=== PATIENT | female | born 1955 | race Caucasian/White ===

== ENCOUNTER → 2018-01-19 15:51 | Outpatient (REF) | payer BC, SELFPAY ==
[2018-01-19 19:45] LABS: Cholesterol 177 mg/dL (50-200); HDL Cholesterol 46 mg/dL (40-60); LDL CHOLESTEROL 113 mg/dL (<100); Triglyceride 79 mg/dL (30-150)
[2018-01-21 10:35] LABS: HIV-1/2 Ag & Ab Screen Negative (NEGAT)
[2018-01-21 10:38] LABS: Hepatitis C Ab w Rflx HCV PCR Negative (NEGAT)
== END ==
LOC: LBN 15:51
PROVIDERS: PCP Internal Medicine; Visit Provider Internal Medicine
DX: Z13.220 Encounter for screening for lipoid disorders (principal); Z11.59 Encounter for screening for other viral diseases; Z11.4 Encounter for screening for human immunodeficiency virus [HIV]
CPT/HCPCS: 80061; 83721; 86803; 87389

== ENCOUNTER 2018-10-06 00:34 | Outpatient (CLI) | payer BC, SELFPAY ==
--- NOTE | 2018-10-06 08:22 | DI.MAMMO_ITS ---
SYMPTOM/DIAGNOSIS: SCREENING, Z12.31 MAMMOGRAMS: Mammograms were interpreted according to the usual protocol including computer analysis with CAD system, tomosynthesis and C view imaging. The breasts are of moderate density with fairly symmetrical distribution of fibroglandular tissue. No dominant mass or clumped microcalcification is identified in either breast. The current examination is compared with previous examinations including 09/2017 and there has been no gross interval change in appearance in comparison with the previous studies. CONCLUSION: No specific evidence of malignancy at this time. Routine screening examinations are suggested at yearly intervals in this age group according to the ACS/ACR guidelines. Category 1. Breast density, Category B. MQSA ASSESSMENT OF FINDINGS: Negative. Category 1. Patient will receive a letter notifying them of these results. BI-RADS category B. There are scattered areas of fibroglandular density.
== END 2018-10-06 00:54 ==
PROVIDERS: PCP Internal Medicine; Visit Provider Nurse Practitioner Family
DX: Z12.31 Encounter for screening mammogram for malignant neoplasm of breast (principal)
CPT/HCPCS: 77063; 77067

== ENCOUNTER 2019-08-21 10:11 | Outpatient (REF) | payer BC, SELFPAY ==
--- NOTE | 2019-08-21 08:30 | PAPFT_PTH ---
PATIENT: Marilyn Alvarez LOC: [facility] U#:[id number] AGE/SX: 64/F ROOM: RE08/21/[address]: EVERETT Martin : 1955 BED: DIS: 08/21/2019 SPEC #: [id number] RECD: 08/21/19 13:03 STATUS: BJORNThanh REQ #: [id number] EBONIE: 08/21/19 08:[address]: Stefanie Vallejo DEPT: [facility] Cytology RECD BY: Trista Hinton ENTERED: 08/21/19 13:04 SP TYPE: PAPFT OTHR DR: Jadyn Abad MD Tissues: 1 - CX/ENDOCX FOR PAP SMEARS Procedures: PAP THIN PREP/UVM Screening HPV DNA PROBE Comments: [id number]
== END 2019-08-21 10:31 ==
LOC: LBN 10:11
PROVIDERS: PCP Internal Medicine; Visit Provider Nurse Practitioner Family
DX: Z12.4 Encounter for screening for malignant neoplasm of cervix (principal); Z11.51 Encounter for screening for human papillomavirus (HPV)
CPT/HCPCS: 88142; 87624

== ENCOUNTER 2019-08-25 16:13 | Outpatient (REF) | payer BC, SELFPAY ==
--- NOTE | 2019-08-25 15:00 | SKI_PTH ---
PATIENT: Marilyn Alvarez LOC: [facility] U#:[id number] AGE/SX: 64/F ROOM: RE08/25/[address]: Sidney White MD : 1955 BED: DIS: 08/25/2019 SPEC #: [id number] RECD: 08/25/19 17:39 STATUS: HEAVENLY REQ #: [id number] EBONIE: 08/25/19 15:[address]: Sidney White DEPT: Surgical Specimen RECD BY: Trista Hniton ENTERED: 08/25/19 17:39 SP TYPE: ENID BALDWIN DR: Jadyn Abad MD Tissues: 1 - SKIN CYST/TAG/DEBRIDEMENT Procedures: GROSS AND MICRO LEVEL 3 Comments: [id number]
== END 2019-08-25 16:33 ==
LOC: LBN 16:13
PROVIDERS: PCP Internal Medicine; Visit Provider Obstetrics & Gynecology
DX: D28.0 Benign neoplasm of vulva (principal); N90.89 Other specified noninflammatory disorders of vulva and perineum
CPT/HCPCS: 88304

== ENCOUNTER 2019-11-27 02:28 | Outpatient (CLI) | payer BC, SELFPAY ==
--- NOTE | 2019-11-27 07:30 | DI.MAMMO_ITS ---
EXAM: MG MAMMO SCREENING CLINICAL HISTORY: screening TECHNIQUE: Bilateral full field digital CC and MLO mammographic images were obtained with 3D tomosyn thesis and utilizing computer aided detection (CAD). COMPARISON: Available for comparison. FINDINGS: Masses/Architectural Distortion: None seen. Microcalcifications: No suspicious pleomorphic-type are seen. Skin Thickening/Nipple Retraction: None. IMPRESSION: 1. No significant interval change with no specific features of malignancy noted. 2. Unless there is more urgent need, screening mammography is recommended, as per [place] [employer] guidelines. BI-RADS Category 1 - Negative Breast Density - Category B - Scattered areas of fibroglandular density A negative radiographic report should not delay biopsy if a dominant or clinically suspicious mass is present. Up to ten percent of cancers are not identified on mammography. A negative report may reinforce clinical impression. Adenosis and dense breasts may obscure an underlying neoplasm. False positive reports average 6 to 10%. Patient will receive a letter notifying them of these results.
== END 2019-11-27 02:48 ==
PROVIDERS: PCP Internal Medicine; Visit Provider Nurse Practitioner Family
DX: Z12.31 Encounter for screening mammogram for malignant neoplasm of breast (principal)
CPT/HCPCS: 77063; 77067

== ENCOUNTER 2020-11-01 03:39 | Outpatient (CLI) | payer BC, MEDICAID, SELFPAY ==
[2020-11-01 07:31] LABS: HGB 14.6 g/dL (11.2-15.7); MCHC 32.4 % (32.0-36.0); MCV 89.3 fL (80-95); MPV 9.7 fL (8.0-11.0); Platelet Count 323 10^3/uL (130-400); RBC 5.04 10^6/uL (3.93-5.22); RDW 12.9 % (11.7-14.6); RDW-SD 42.5 fL; WBC 6.38 10^3/uL (4.4-10.8)
[2020-11-01 07:43] LABS: Hemoglobin A1C 5.6 % (<5.7)
[2020-11-01 08:37] LABS: ALT 32 U/L (14-59); AST 18 U/L (15-37); Albumin 3.8 g/dL (3.4-5.0); Alkaline Phosphatase 89 U/L (46-116); Anion Gap 7.1 mmol/L (3-11); BUN 14 mg/dL (7-18); Bilirubin, Total 0.5 mg/dL (0.2-1.0); CO2 29.9 mmol/L (21.0-32.0); Calculated LDL 106 mg/dL (<100); Chloride 104 mmol/L (98-107); Cholesterol 170 mg/dL (<200); Glucose 109 mg/dL (74-106); HDL Cholesterol 49 mg/dL (40-60); Potassium 4.5 mmol/L (3.5-5.1); Sodium 141 mmol/L (136-145); Total Protein 7.3 g/dL (6.4-8.2); Triglyceride 79 mg/dL (<150)
== END 2020-11-01 03:40 | disposition home or self-care (01) ==
LOC: LBO 03:40
PROVIDERS: PCP Nurse Practitioner; Visit Provider Nurse Practitioner
DX: E11.9 Type 2 diabetes mellitus without complications (principal); E66.9 Obesity, unspecified; Z13.220 Encounter for screening for lipoid disorders
CPT/HCPCS: 36415; 80053; 80061; 85027; 83036

== ENCOUNTER 2020-11-27 01:37 | Outpatient (CLI) | payer BC, SELFPAY ==
--- NOTE | 2020-11-27 07:15 | DI.MAMMO_ITS ---
Exam(s) MAMMO SCREENING EXAM: MAMMO SCREENING CLINICAL HISTORY: screening, Z12.39 TECHNIQUE: Bilateral full field digital CC and MLO mammographic images were obtained with 3D tomosyn thesis and utilizing computer aided detection (CAD). COMPARISON: Available for comparison. FINDINGS: Masses/Architectural Distortion: None seen. Stable well-circumscribed nodules in both breasts. Microcalcifications: No suspicious pleomorphic-type are seen. Skin Thickening/Nipple Retraction: None. IMPRESSION: 1. No significant interval change with no specific features of malignancy noted. 2. Unless there is more urgent need, screening mammography is recommended, as per [place] [employer] guidelines. BI-RADS Category 1 - Negative Breast Density - Category B - Scattered areas of fibroglandular density Breast density category C or D implies that the patient has dense breast tissue. Dense breast tissue is very common and is not abnormal but dense breast tissue can make it harder to find cancer on a ma mmogram. Also, dense breast tissue may increase their breast cancer risk. This information about the result of the mammogram report was provided to the patient to raise their awareness. Use this report when you speak with the patient about their risks for breast cancer, which includes their family hist ory. At that time, you may recommend for more screening tests (Ultrasound or MRI) as they might be us eful based on their risk. A negative radiographic report should not delay biopsy if a dominant or clinically suspicious mass is present. Up to ten percent of cancers are not identified on mammography. A negative report may reinforce clinical impression. Adenosis and dense breasts may obscure an underlying neoplasm. False positive reports average 6 to 10%. Patient will receive a letter notifying them of these results.
== END 2020-11-27 01:57 ==
PROVIDERS: PCP Nurse Practitioner; Visit Provider Nurse Practitioner Family
DX: Z12.31 Encounter for screening mammogram for malignant neoplasm of breast (principal)
CPT/HCPCS: 77063; 77067

== ENCOUNTER 2021-03-12 00:29 | Outpatient (CLI) | payer BC, MEDICAID, SELFPAY ==
[2021-03-12 11:31] LABS: Source Nasal/Nares
[2021-03-12 15:23] LABS: COVID-19 PCR Negative (Negative)
== END 2021-03-12 00:30 | disposition home or self-care (01) ==
LOC: LBO 00:29
PROVIDERS: PCP Nurse Practitioner; Visit Provider Surgery
DX: Z20.822 Contact with and (suspected) exposure to COVID-19 (principal); Z01.818 Encounter for other preprocedural examination
CPT/HCPCS: 87635

== ENCOUNTER 2021-03-14 08:02 | Day surgery (SDC) | payer BC, MEDICAID, SELFPAY ==
--- NOTE | 2021-03-13 22:33 | PDOC.DSDIS_ITS ---
Discharge Plan Disposition Patient Disposition: HOME Condition: Good Discharge Details Reason For Visit: colon scope Attending Provider: Adriana Villareal Primary Care Provider: Callie Lugo Home Meds and New Rx's Prescriptions: Continued naproxen 500 mg tablet 500 mg PO BID PRN (Reason: pain) Qty: 30 RF: 0 cholecalciferol (vitamin D3) 400 units PO DAILY RF: 0 calcium carbonate 600 mg PO DAILY RF: 0 multivitamin [Daily Multi-Vitamin] 1 EACH tablet 1 ea PO DAILY RF: 0 aspirin [Aspirin Low Dose] 81 MG tablet,delayed release (DR/EC) 81 mg PO DAILY RF: 0 Ocuvite with Lutein 1 EACH tablet 1 ea PO DAILY RF: 0 Fish Oil 300 MG capsule 300 mg PO DAILY RF: 0 GLUCOS-CHOND 500 COMPLEX CP 1 EACH capsule 1 ea PO DAILY RF: 0 [facility] martinez wart 1 tab PO DAILY RF: 0 Niya-C with Bioflavonoids 1 EACH tablet 1 ea PO DAILY RF: 0 Discontinued bisacodyl [Dulcolax (bisacodyl)] 5 mg tablet,delayed release (DR/EC) 5 mg PO ONCE Qty: 4 RF: 0 polyethylene glycol 3350 17 gram/dose powder 238 g PO ONCE Qty: 238 RF: 0 Discharge Instructions Additional Instructions: DSU Colonoscopy Post- Op Instructions Instructions for Everyone who is given Anesthesia: For your safety, please do the following for the next twenty-four (24) hours: *Do Not operate a motor vehicle (car, truck, motorcycle, etc.) *Do Not drink alcoholic beverages or use any recreational drugs for the first 24 hours or while taking pain medications. The medications in your body may have a reaction that can be dangerous. *Do Not make any important decisions or sign any important papers. Findings:severe diverticula Follow up: Repeat scope in 10 yrs time 1. No lifting over 20 pounds or strenuous activity for the first 24 hours after your procedure. After 24 hours there are no restrictions on your activity but you may feel fatigued for a few days. 2. After you arrive home you may have a light meal and return to your normal diet as you can tolerate it without feeling sick to your stomach. 3. You may have a bloated, gaseous feeling in your belly (abdomen) after a colonoscopy. Passing gas and belching will help. Walking or lying down on your left side with your knees flexed may relieve the discomfort. Call the office at [phone] (Office) or [phone] (Hospital) right away if you notice any of the following: a.Vomiting of blood or ?coffee ground stools?. b.Rectal bleeding 1Tbsp, blood clots or continuous bleeding. c.Severe belly (abdominal) pain. d.A hard distended belly (abdomen) and an inability to pass gas. 4. Please don?t expect to have a normal BM (bowel movement) for 2-3 days after your procedure. 5. If there are questions regarding the findings of your procedure, please contact your doctor 6. If you are unable to contact your doctor with a problem, contact the hospital at [phone]. 7. Continue all your regular medications unless directed otherwise. I understand the above instructions and have no questions. Signature of Patient or Adult Escort Name of Responsible Adult Escort Signature of Nurse Date/Time Activity:: see above Diet:: see above Discharge Orders Discharge Orders: Discharge Order (Routine); Ordered 03/13/21 Ordered By: Adriana Villareal DS: Diagnosis Discharge Diagnosis (1) Adenomatous colon polyp: Status: Acute (2) Diverticula of colon: Status: Acute
--- NOTE | 2021-03-13 22:33 | W.COLOREPORT ---
Colonoscopy Report Date of procedure: 03/14/21 Pre-op diagnosis general: A. polyps Post-op diagnosis procedure note: other (diverticulitis ) Surgeon: Adriana Villareal Anesthesia Type: General:No Airway Estimated blood loss (mL): 0 Pathology: none sent Complications: None Disposition: same day Indications: After informed consent was obtained the patient was taken to the procedure room and placed in a left decubitous position. Monitors were applied and a time out was done. The patients name, date of , procedure, allergies to medications and metal in their body was reviewed. The patient was then sedated. Once sedated and comfortable a rectal exam was done. External exam was normal. Internal exam revealed a normal sphincter tone and no palpable masses. lg external hemorrhoids The scope was then introduced and retrofelexed. no internal hemorrhoids were identified. The scope was then advanced to the cecum w/out difficulty. The TI and appendiceal orifice were identified. The prep was poor-she still had a lot of formed stool within the colon. This did obscure visualization.. The scope was then slowly retracted over 9 minutes back into the rectum. There are no polyps identified. She does have severe diverticula with a significant amount of inspissated stool in the diverticula, making visualization poor. I did not visualize any polyps today. The scope was removed and the patient was woken up and taken back to Same day surgery in stable condition. The patient tolerated the procedure well and there were no immediate complications. Follow up: The patient should follow up in 10 years unless they develop changes in bowel habits or other new gastrointestinal complaints. Prep: Miralax/Dulcolax Retraction Time: 9
[2021-03-14 08:14] VITALS: BP 133/62; PULSE 59; RESP 16; TEMP 36.4; O2SAT 100
[2021-03-14] MEDS: Lactated Ringers 1,000 ML 80 ML IV (08:38)
--- NOTE | 2021-03-14 08:44 | W.ANESPRE ---
General Info Date of Service Date Performed: 03/14/21 Height: 4 ft 11 in Weight: 78.2 kg Body Mass Index (BMI): 34.8 Surgical Procedure: Operation Date: 03/14/21 09:05 Proposed Procedures Side Surgeon bradly Villareal, DO Meds Allergies and Home Medications Allergies Allergy/AdvReac Type Severity Reaction Status Date / Time No Known Allergies Allergy Verified 03/14/21 08:25 Home Medication Medication Instructions Recorded Glucos-Chond 500 Complex Cp 1 ea PO DAILY 08/14/13 [facility] Wart 1 tab PO DAILY 08/14/13 aspirin [Low Dose Aspirin Ec] 81 mg PO DAILY tab-cap 08/14/13 multivitamin [Daily Multiple 1 ea PO DAILY 08/14/13 Vitamin] omega-3 fatty acids [Fish Oil] 300 mg PO DAILY 08/14/13 vit A,C and [id number] 1 ea PO DAILY 08/14/13 [Ocuvite Tablet] ascorbate calcium-bioflavonoid 1 ea PO DAILY tab 10/06/17 [Niya-C 500 Mg Tablet] naproxen 500 mg tablet 500 mg PO BID PRN #30 tab 08/26/18 calcium carbonate 600 mg PO DAILY 10/17/20 cholecalciferol (vitamin D3) 400 units PO DAILY 10/17/20 bisacodyl 5 mg tablet,delayed 5 mg PO ONCE #4 tab 02/27/21 release polyethylene glycol 3350 17 238 g PO ONCE #238 g 02/27/21 gram/dose oral powder Current Visit Medications: Current Medications Generic Name Dose Route Start Last Admin Trade Name Freq PRN Reason Stop Dose Admin Hyoscyamine Sulfate 0.125 mg 03/13/21 22:31 Hyoscyamine 0.125 Mg Sl/Oral/Chew SL DIRECTED PRN Ringer's Solution 1,000 mls @ 80 mls/hr 03/14/21 06:00 03/14/21 08:38 IV 04/12/21 23:59 80 mls/hr INFUSION RICARDO Administration IV Miscellaneous Supplies 1 each 03/14/21 06:00 Iv Access IV 04/12/21 23:59 DIRECTED RICARDO Sodium Chloride 0 ml 03/14/21 06:00 Normal Saline Flush 10 Ml Syr IV 04/12/21 23:59 PRN PRN Sodium Chloride 0 ml 03/14/21 06:00 Normal Saline 10 Ml Vial IJ 04/12/21 23:59 DIRECTED PRN Sterile Water 0 ml 03/14/21 06:00 Water,Injection,Sterile 10 Ml Vial IJ 04/12/21 23:59 DIRECTED PRN PFSH Active Problems Active Problems: Problem Status Onset Code Adenomatous colon polyp D12.6 Blood pressure check Z01.30 Obesity E66.9 Screening for cholesterol level Z13.220 Vulvar skin tag N90.89 Arthritis of knee, left 01/08/15 M17.12 Benign neoplasm of colon 06/12/08 D12.6 Cerebral palsy 12/27/07 G80.9 Medical History Medical History Arthritis of knee, left (01/08/15) Benign neoplasm of colon (06/12/08) Cerebral palsy (12/27/07) R sided w/ ankle deformity History of depression History of pre-eclampsia Surgical History Surgical History section Ligation of fallopian tube 1977 Tobacco Smoking/Tobacco Use Status: Former Tobacco Use Alcohol Alcohol Intake: current Alcohol intake frequency: holidays/special occasions only Substance Use Substance use: Never Substance use type: does not use Prental History History 2 Para Hx # Term Pregnancies Multiple births Hx # Pregnancies Ectopic pregnancies AB induced Hx Number of Living Children AB spontaneous Vital Signs and Lab Results Vital Signs Most Recent Vital Signs in EMR: Most Recent Vital Signs Temp Pulse Resp BP Pulse Ox 36.4 C L 59 L 16 133/62 100 03/14/21 08:14 03/14/21 08:14 03/14/21 08:14 03/14/21 08:14 03/14/21 08:14 Lab Results Blood Type / Crossmatch: No Data to Display Complete Blood Count: No Data to Display Complete Metabolic Panel: No Data to Display Liver Function Panel: No Data to Display Coagulation Panel: No Data to Display Cardiac Panel: No Data to Display Arterial Blood Gas: No Data to Display Venous Blood Gas: No Data to Display Pancreas Panel: No Data to Display Thyroid Panel: No Data to Display Infectious Disease: Coronavirus (COVID-19)(PCR) Negative (Negative) 03/12/21 09:01 03/12/21 Coronavirus 2019 Source Nasal/Nares 03/12/21 09:01 03/12/21 Blood Cultures: No Data to Display Toxicology Panel: No Data to Display Anesthesia Assessment and Plan Anesthesia History Personal History: No History of Anesthesia Complications Family History: No Family History of Anesthesia Complications Exercise Tolerance Exercise Tolerance: Metabolic Equivalents>4 Pertinent Negatives Pertinent Negatives: No Symptoms of GERD, No Major Cardiovascular Symptoms or Complaints, No Major Pulmonary Symptoms or Complaints and No History of CVA/TIA Cardiac & Pulmonary Exam Cardiac Exam: Normal S1/S2 Heart Sounds Pulmonary Exam: Clear Bilateral Breath Sounds Airway Exam Known Difficult Airway: No Mallampati Class: 2 Mouth Opening: Normal (> 3cm) Thyromental Distance: Greater than 3 cm Neck Range of Motion: Full ROM Neck Circumference: Thick Teeth Condition: Normal Dentition ASA Classification ASA Score: ASA 2 Emergency Case?: No NPO Status NPO Status: NPO Clears >2 hours, Solids >8 hours Anesthesia Plan Resuscitation Status: Full Code Anesthesia Technique: General Anesthesia Airway Planned: Natural Airway Monitors Used: Standard Monitors
[2021-03-14 08:47] VITALS: BMI 34.8
[2021-03-14 08:53] VITALS: BP 101/64; PULSE 64; RESP 16; TEMP 36.4; O2SAT 97
--- NOTE | 2021-03-14 09:44 | W.ANESPOSTOP ---
Postoperative Evaluation Date, Time and Location Date Performed: 03/14/21 Time Performed: 09:44 Patient Location: Day Surgery Unit Vital Signs Most Recent Imported Vital Signs: Most Recent Vital Signs Temp Pulse Resp BP Pulse Ox 36.4 C L 64 16 101/64 97 03/14/21 08:53 03/14/21 08:53 03/14/21 08:53 03/14/21 08:53 03/14/21 08:53 Most Recent Manually Entered Vital Signs: Adult Blood Pressure: 99/52 Heart Rate: 63 Respirations: 12 Oxygen Saturation (%): 96 Temperature (C): 36.1 C Pain Score (0-10 Scale): 0 Pain Score Most Recent Pain Score: Most Recent Pain Score Pain Level 0 03/14/21 08:53 Assessment Mental Status: Awake (Alert & Oriented to Patient Baseline) Airway and Respiratory Function: Patent airway with normal (patient baseline) respiratory exam Cardiovascular Function: Hemodynamically Stable Hydration Status: Adequately Hydrated Nausea & Vomiting: No Nausea or Vomiting Pain: Pt. Denies Any Pain Peripheral Nerve Block: Patient did not receive a nerve block
[2021-03-14 09:46] VITALS: BP 99/52; PULSE 63; RESP 12; TEMPC 36.1; O2SAT 96
[2021-03-14 09:47] VITALS: BP 99/52; PULSE 63; RESP 16; TEMP 36.1; O2SAT 96
[2021-03-14 10:21] VITALS: BP 139/70; PULSE 71; RESP 16; TEMP 36.1; O2SAT 98
== END 2021-03-14 10:48 | disposition home or self-care (01) ==
PROVIDERS: PCP Nurse Practitioner; Visit Provider Surgery
PROC: 0DJD8ZZ Inspection of Lower Intestinal Tract, Via Natural or Artificial Opening Endoscopic (ICD-10-PCS; CPT 45378; principal; 2021-03-14 09:00)
DX: Z12.11 Encounter for screening for malignant neoplasm of colon (principal); K57.30 Diverticulosis of large intestine without perforation or abscess without bleeding
CPT/HCPCS: 45378; J2001

== ENCOUNTER → 2021-12-01 02:08 | Outpatient (CLI) | payer BC, MEDICAID, SELFPAY ==
--- NOTE | 2021-12-01 07:22 | DI.MAMMO_ITS ---
Exam(s) MAMMO SCREENING EXAM: MAMMO SCREENING CLINICAL HISTORY: screening,z12.39 TECHNIQUE: Mammograms were interpreted according to the usual protocol including computer analysis w [employer]ora CAD system, tomosynthesis and C-view imaging. COMPARISON: 2012 through 2020 FINDINGS: The breasts are composed of mainly fatty density , Breast Density category A. No suspicious masses or suspicious microcalcifications are seen. Incidental vascular calcifications. No skin thickening or abnormal axillary lymph nodes are seen. There has been no significant change from prior exams. IMPRESSION: BI-RADS Category 1, Negative mammogram Yearly screening mammography is recommended. Breast Density - Category A, fatty density. A negative radiographic report should not delay biopsy if a dominant or clinically suspicious mass is present. Up to ten percent of cancers are not identified on mammography. A negative report may reinforce clinical impression. Adenosis and dense breasts may obscure an underlying neoplasm. False positive reports average 6 to 10%. Patient will receive a letter notifying them of these results.
== END ==
PROVIDERS: PCP Nurse Practitioner; Visit Provider Nurse Practitioner Family
DX: Z12.31 Encounter for screening mammogram for malignant neoplasm of breast (principal)
CPT/HCPCS: 77063; 77067

== ENCOUNTER 2021-12-26 14:43 | Outpatient (REF) | payer BC, MEDICAID, SELFPAY ==
--- NOTE | 2021-12-26 13:20 | ENDOMET_PTH ---
PATIENT: Marilyn Alvarez LOC: [facility] U#:[id number] AGE/SX: 66/F ROOM: RE12/26/[address]: Merly Malik DO : 1955 BED: DIS: 12/26/2021 SPEC #: [id number] RECD: 12/26/21 15:52 STATUS: HEAVENLY RE #: [id number] EBONIE: 12/26/21 13:[address]: Merly Malik DEPT: Surgical Specimen RECD BY: Sveta Dorado ENTERED: 12/26/21 15:53 SP TYPE: Endomet OTHR DR: Callie Lugo APRN Tissues: 1 - ENDOMETRIUM BX/ELBERT Procedures: GROSS AND MICRO LEVEL 4 Comments: [id number]
== END 2021-12-26 14:44 | disposition home or self-care (01) ==
LOC: LBN 14:43
PROVIDERS: PCP Nurse Practitioner; Visit Provider Obstetrics & Gynecology
DX: N85.00 Endometrial hyperplasia, unspecified (principal); N88.8 Other specified noninflammatory disorders of cervix uteri
CPT/HCPCS: 88305

== ENCOUNTER 2022-01-13 03:56 | Outpatient (CLI) | payer BC, MEDICAID, SELFPAY | END 2022-01-13 03:57 | disposition home or self-care (01) | LOC: LBO 03:57 | PROVIDERS: PCP Nurse Practitioner; Visit Provider Obstetrics & Gynecology ==

== ENCOUNTER 2022-01-13 03:57 | Outpatient (CLI) | payer BC, MEDICAID, SELFPAY ==
[2022-01-13 12:51] LABS: Source Nasal/Nares
[2022-01-13 13:18] LABS: Abs Immature Grans 0.01 10^3/uL (0.0-0.06); Absolute Basophil Count 0.04 10^3/uL (0.0-0.2); Absolute Eosinophil Count 0.08 10^3/uL (0.0-0.7); Absolute Lymphocyte Count 2.43 10^3/uL (1.2-3.4); Absolute Monocyte Count 0.49 10^3/uL (0.1-0.8); Absolute Neutrophil Count 5.32 10^3/uL (1.2-6.7); Basophils % 0.5; HCT 42.3 % (36.0-46.0); Immature Grans % 0.1; MCH 28.9 pg (27.0-33.0); MCHC 33.1 % (32.0-36.0); MCV 87 fL (80-95); MPV 10.4 fL (8.0-11.0); Monocytes % 5.9; Neutrophils % 63.5; Platelet Count 268 10^3/uL (130-400); RBC 4.85 10^6/uL (3.93-5.22); RDW 13.6 % (11.7-14.6); RDW-SD 43.8 fL; WBC 8.37 10^3/uL (4.4-10.8)
[2022-01-13 16:22] LABS: COVID-19 PCR Negative (Negative)
== END 2022-01-13 03:58 | disposition home or self-care (01) ==
LOC: LBO 03:58
PROVIDERS: PCP Nurse Practitioner; Visit Provider Obstetrics & Gynecology
DX: Z01.818 Encounter for other preprocedural examination (principal); Z20.822 Contact with and (suspected) exposure to COVID-19
CPT/HCPCS: 36415; 86850; 86900; 86901; 87635; 85025

== ENCOUNTER 2022-01-15 06:08 | Day surgery (SDC) | payer BC, MEDICAID, SELFPAY ==
[2022-01-15 06:15] VITALS: BP 159/75; PULSE 52; RESP 18; TEMP 36.5; O2SAT 99
[2022-01-15] MEDS: Lactated Ringers 1,000 ML 125 ML IV (06:44)
--- NOTE | 2022-01-15 06:50 | W.ANESPRE ---
General Info Date of Service Date Performed: 01/15/22 Height: 4 ft 11 in Weight: 78.4 kg Body Mass Index (BMI): 34.9 Surgical Procedure: Operation Date: 01/15/22 07:40 Proposed Procedure Side Surgeon p Dilation & Curettage with Hysteroscopy Merly Malik DO Meds Allergies and Home Medications Allergies Allergy/AdvReac Type Severity Reaction Status Date / Time No Known Allergies Allergy Verified 01/15/22 06:19 Home Medication Medication Instructions Recorded Glucos-Chond 500 Complex Cp 1 ea PO DAILY 08/14/13 [facility] Wart 1 tab PO DAILY 08/14/13 aspirin 81 mg tablet,delayed 81 mg PO DAILY 08/14/13 release (Heike Low Dose Aspirin) multivitamin (Daily Multi-Vitamin 1 ea PO DAILY 08/14/13 tablet) omega-3 fatty acids 300 mg capsule 300 mg PO DAILY 08/14/13 (Fish Oil) vit A 300 mcg-C 200 mg-E 27 1 ea PO DAILY 08/14/13 mg-lutein 2 mg and minerals tablet (Ocuvite with Lutein) ascorbate calcium-bioflavonoid 500 1 ea PO DAILY 10/06/17 mg-200 mg tablet (Niya-C with Bioflavonoids) naproxen 500 mg tablet 500 mg PO BID PRN pain #30 tabs 08/26/18 calcium carbonate 600 mg PO DAILY 10/17/20 cholecalciferol (vitamin D3) 400 units PO DAILY 10/17/20 psyllium husk 3.4 gram/5.4 gram 1 tbsp PO DAILY #660 grams 03/14/21 oral powder (Metamucil) Current Visit Medications: Current Medications Generic Name Dose Route Start Last Admin Trade Name Flavia PRN Reason Stop Dose Admin Ringer's Solution 1,000 mls @ 125 mls/hr 01/15/22 06:00 01/15/22 06:44 IV 02/13/22 23:59 125 mls/hr INFUSION RICARDO Administration IV Miscellaneous Supplies 1 each 01/15/22 06:00 Iv Access IV 02/13/22 23:59 DIRECTED RICARDO Sodium Chloride 0 ml 01/15/22 06:00 Normal Saline Flush 10 Ml Syr IV 02/13/22 23:59 PRN PRN Sodium Chloride 0 ml 01/15/22 06:00 Normal Saline 10 Ml Vial IJ 02/13/22 23:59 DIRECTED PRN Sterile Water 0 ml 01/15/22 06:00 Water,Injection,Sterile 10 Ml Vial IJ 02/13/22 23:59 DIRECTED PRN PFSH Active Problems Active Problems: Problem Status Onset Code Endometrial thickening on ultrasound R93.89 Postmenopausal bleeding N95.0 Diverticula of colon K57.30 Adenomatous colon polyp D12.6 Blood pressure check Z01.30 Obesity E66.9 Screening for cholesterol level Z13.220 Vulvar skin tag N90.89 Arthritis of knee, left 01/08/15 M17.12 Benign neoplasm of colon 06/12/08 D12.6 Cerebral palsy 12/27/07 G80.9 Medical History Medical History History of pre-eclampsia Surgical History Surgical History section History of colonoscopy (~03/14/21) Ligation of fallopian tube 1977 Normal colonoscopy (~02/2021) Tobacco Smoking/Tobacco Use Status: Former Tobacco Use Alcohol Alcohol Intake: current Alcohol intake frequency: holidays/special occasions only Substance Use Substance use: Never Substance use type: does not use Prental History History 2 Para Hx # Term Pregnancies Multiple births Hx # Pregnancies Ectopic pregnancies AB induced Hx Number of Living Children AB spontaneous Vital Signs and Lab Results Vital Signs Most Recent Vital Signs in EMR: Most Recent Vital Signs Temp Pulse Resp BP Pulse Ox 36.5 C 52 L 18 159/75 H 99 01/15/22 06:15 01/15/22 06:15 01/15/22 06:15 01/15/22 06:15 01/15/22 06:15 Lab Results Blood Type / Crossmatch: Patient ABO/Rh O Positive 01/13/22 Antibody Screen NEGATIVE 01/13/22 Complete Blood Count: White Blood Count 8.37 10^3/uL (4.4-10.8) 01/13/22 13:05 Red Blood Count 4.85 10^6/uL (3.93-5.22) 01/13/22 13:05 Hemoglobin 14.0 g/dL (11.2-15.7) 01/13/22 13:05 Hematocrit 42.3 % (36.0-46.0) 01/13/22 13:05 Platelet Count 268 10^3/uL (130-400) 01/13/22 13:05 Complete Metabolic Panel: No Data to Display Liver Function Panel: No Data to Display Coagulation Panel: No Data to Display Cardiac Panel: No Data to Display Arterial Blood Gas: No Data to Display Venous Blood Gas: No Data to Display Pancreas Panel: No Data to Display Thyroid Panel: No Data to Display Infectious Disease: Coronavirus (COVID-19)(PCR) Negative (Negative) 01/13/22 12:45 Coronavirus 2019 Source Nasal/Nares 01/13/22 12:45 Blood Cultures: No Data to Display Toxicology Panel: No Data to Display Anesthesia Assessment and Plan Anesthesia History Personal History: No History of Anesthesia Complications Family History: No Family History of Anesthesia Complications Exercise Tolerance Exercise Tolerance: Metabolic Equivalents>4 Pertinent Negatives Pertinent Negatives: No Symptoms of GERD, No Major Cardiovascular Symptoms or Complaints, No Major Pulmonary Symptoms or Complaints and No History of CVA/TIA Cardiac & Pulmonary Exam Cardiac Exam: Normal S1/S2 Heart Sounds Pulmonary Exam: Clear Bilateral Breath Sounds Implantable Cardiac Device Does patient have a Pacemaker or an ICD?: No Airway Exam Known Difficult Airway: No Mallampati Class: 2 Mouth Opening: Normal (> 3cm) Thyromental Distance: Greater than 3 cm Neck Range of Motion: Full ROM Neck Circumference: Thick Teeth Condition: Normal Dentition (one missing tooth (baby tooth that was never replaced) ) ASA Classification ASA Score: ASA 2 Emergency Case?: No NPO Status NPO Status: NPO Clears >2 hours, Solids >8 hours Anesthesia Plan Resuscitation Status: Full Code Anesthesia Technique: General Anesthesia Airway Planned: Natural Airway Monitors Used: Standard Monitors
[2022-01-15 07:22] VITALS: BMI 34.9
--- NOTE | 2022-01-15 08:12 | ENDO_PTH ---
PATIENT: Marilyn Alvarez LOC: [facility] U#:[id number] AGE/SX: 66/F ROOM: RE01/15/[address]: Merly Malik DO : 1955 BED: DIS: 01/15/2022 SPEC #: [id number] RECD: 01/15/22 12:52 STATUS: HEAVENLY RE #: [id number] EBONIE: 01/15/22 08:[address]: Merly Malik DEPT: Surgical Specimen RECD BY: Trista Hinton ENTERED: 01/15/22 12:53 SP TYPE: Endo OTHR DR: Callie Lugo APRN Tissues: 1 - ENDOCERVICAL BX/CURRETTE 2 - ENDOMETRIUM BX/CURRETTE Procedures: GROSS AND MICRO LEVEL 4 Comments: [id number]
--- NOTE | 2022-01-15 08:29 | W.PM.OP ---
Date of service: 01/15/22 Time of Service: 08:29 Operative Note Operative Note DATE OF PROCEDURE: 01/15/22 PRE-OP DIAGNOSIS: Thickened endometrium, failed endometrial biopsy in the office POST-OP DIAGNOSIS: same Cervical stenosis PROCEDURE: Hysteroscopy with dilation and curettage SURGEON: Merly Malik ANESTHESIA TYPE: General:No Airway Refer to Anesthesia Record ESTIMATED BLOOD LOSS: 10 PATHOLOGY: other (1. Endocervical curettage 2. Endometrial curettage) COMPLICATIONS: None Patient was transported to: PACU Patient's condition: stable Indications: Thickened endometrium and failed endometrial biopsy in the office Findings: Regular endometrial cavity, cervical stenosis Procedure Description: Patient was transferred to the OR after full informed consent was obtained. She was placed in the dorsal supine position and general anesthesia administered. She was then placed in the modified dorsal lithotomy position and with the use of yellowfin stirrups and pneumatic compression stockings, appropriate positioning obtained. She was then prepped and draped in the usual sterile fashion exam under anesthesia revealed a uterus that was midline and mobile. At this point a Graves speculum was inserted into the vaginal vault. This allowed visualization of the cervix. The cervix was then grasped at the posterior lip and cervical stenosis was noted. An lacrimal duct probe was used to gently dilate the cervical canal and with Sami dilators in a sequential fashion the cervical os was dilated. At this point a 5 mm hysteroscope could be easily passed through the endocervical canal for visualization of the endometrium. The endometrium appeared relatively smooth and regular and somewhat atrophic. After visualization of the entirety of the endometrial cavity, the hysteroscope portion was terminated. Fluid deficit from hysteroscopy was 25 mL. At this point a fractional dilation and curettage was performed with gentle sharp curettage of the endocervix followed by gentle sharp curettage of the endometrium with scant tissue return. At this point the tenaculum was removed as was a speculum and the patient was returned to the dorsal supine position. She woke from anesthesia with ease and was taken to the postanesthesia care unit in stable condition. Findings: Cervical stenosis, scant endometrial and endocervical tissue with a regular appearing endometrial lining. Complications: None apparent Fluid deficit at hysteroscopy:25 mL Fluids: Crystalloid per anesthesia Pathology: 1. Endocervical curettage 2. Endometrial curettage
[2022-01-15 08:35] VITALS: BP 114/66; PULSE 50; RESP 16; TEMP 35.8; O2SAT 94
[2022-01-15 09:20] VITALS: BP 142/75; PULSE 41; RESP 16; TEMP 36.2; O2SAT 99
--- NOTE | 2022-01-15 09:53 | W.ANESPOSTOP ---
Postoperative Evaluation Date, Time and Location Date Performed: 01/15/22 Time Performed: 09:53 Patient Location: Day Surgery Unit Vital Signs Most Recent Imported Vital Signs: Most Recent Vital Signs Temp Pulse Resp BP Pulse Ox 35.8 C L 50 L 16 114/66 94 01/15/22 08:35 01/15/22 08:35 01/15/22 08:35 01/15/22 08:35 01/15/22 08:35 Pain Score Most Recent Pain Score: Most Recent Pain Score Pain Level 0 01/15/22 08:35 Assessment Mental Status: Awake (Alert & Oriented to Patient Baseline) Airway and Respiratory Function: Patent airway with normal (patient baseline) respiratory exam Cardiovascular Function: Hemodynamically Stable Hydration Status: Adequately Hydrated Nausea & Vomiting: No Nausea or Vomiting Pain: Pain is Moderate or Severe Postoperative Pain Management: Pain being addressed with medication (Patient reporting pressure 6-7/10. Requesting medication. I've ordered 1 g acetaminophen to be given now. ) Peripheral Nerve Block: Patient did not receive a nerve block
[2022-01-15] MEDS: Acetaminophen 500 MG TAB 1000 MG PO (10:17)
== END 2022-01-15 10:30 | disposition home or self-care (01) ==
PROVIDERS: PCP Nurse Practitioner; Visit Provider Obstetrics & Gynecology
PROC: 0UDB8ZZ Extraction of Endometrium, Via Natural or Artificial Opening Endoscopic (ICD-10-PCS; CPT 58558; principal; 2022-01-15 07:30)
DX: R93.89 Abnormal findings on diagnostic imaging of other specified body structures (principal); N88.2 Stricture and stenosis of cervix uteri; E66.9 Obesity, unspecified; G80.9 Cerebral palsy, unspecified; R87.611 Atypical squamous cells cannot exclude high grade squamous intraepithelial lesion on cytologic smear of cervix (ASC-H)
CPT/HCPCS: 58558; 88305; J1885; J3010

== ENCOUNTER 2022-01-22 02:52 | Outpatient (CLI) | payer BC, SELFPAY ==
[2022-01-22 07:34] LABS: Hemoglobin A1C 5.7 % (<5.7)
[2022-01-22 07:48] LABS: ALT 25 U/L (14-59); AST 13 U/L (15-37); Albumin 3.6 g/dL (3.4-5.0); Alkaline Phosphatase 90 U/L (46-116); Anion Gap 8.8 mmol/L (3-11); BUN 17 mg/dL (7-18); Bilirubin, Total 0.5 mg/dL (0.2-1.0); CO2 28.2 mmol/L (21.0-32.0); CREATININE 0.9 mg/dL (0.55-1.02); Calculated LDL 131 mg/dL (<100); Chloride 104 mmol/L (98-107); Cholesterol 202 mg/dL (<200); Glucose 102 mg/dL (74-106); HDL Cholesterol 48 mg/dL (40-60); Potassium 4.2 mmol/L (3.5-5.1); Sodium 141 mmol/L (136-145); Total Protein 7.4 g/dL (6.4-8.2); Triglyceride 116 mg/dL (<150)
== END 2022-01-22 02:53 | disposition home or self-care (01) ==
LOC: LBO 02:52
PROVIDERS: PCP Nurse Practitioner; Visit Provider Nurse Practitioner
DX: I10 Essential (primary) hypertension (principal); R73.01 Impaired fasting glucose
CPT/HCPCS: 36415; 80053; 80061; 83036

== ENCOUNTER → 2022-03-13 00:26 | Outpatient (CLI) | payer OTHER, SELFPAY ==
--- OUTSIDE RECORDS SUMMARY | 2022-03-13 00:36 | XMS_ITS | Encounter Summary ---
:1955 Author Organization [facility] Address [address] [place] [address] Care Team Providers Name Role Phone Jadyn Abad MD Primary Care Provider Encounter Details Date Type Department Care Team Description 08/25/2019 Lab Requisition [facility] Sidney White MD Encounter for other Pathology & [address] [facility] general examination Laboratory Medicine [facility] [id number] [address] [phone] [place] [address] (Work) [phone] Social History Tobacco Use Types Packs/Day Years Used Date Never Assessed Sex Assigned at Date Recorded Not on file documented as of this encounter Plan of Treatment Not on filedocumented as of this encounter Procedures Procedure Name Priority Date/Time Associated Diagnosis Comme nts SURGICAL PATHOLOGY Today 08/25/2019 15:00 Encounter for othe r Results for this EST general examination procedur e are in the results section. documented in this encounter Results SURGICAL PATHOLOGY (08/25/2019 15:00 EST) Final Diagnosis A. SKIN OF VULVA, SHAVE BIOPSY: [facility] DICAL Electronically - Melanocytic nevus, predominantly intradermal t ype. ulcerated. See comment. CENTER signed by TIAGO Arvizu MD on SERVICES 08/29/2019 at 13 08 Diagnosis Comment The findings are those [facility] of an intradermal nevus CENTER with associated LABORATORY reactive changes SERVICES secondary to external irritation/trauma. Water Resources Program Director slides of this case were reviewed at the intradepartmental consultation conference. Clinical History Vulvar skin tag [facility] LABORATORY SERVICES Attestation By the signature below, [facility] Elec tronically the attending physician CENTER sign ed by Arvizu, certifies that they LABORATORY Adriana wang MD on have 1) personally SERVICES 08/29/2019 at 1308 conducted a gross and/or microscopic examination of the described specimen(s), and/or personally interpreted the results of laboratory testing of the described specimen(s), and 2) personally rendered or confirmed the above diagnosis. Gross Description A. Received in formalin labe lled with proper patient identification (initials (T, C) and vulva skin tag is a single bustillo padgett wrinkled polypoid tissue (1.0 x 0.8 x 0.6 cm). The margin is inked blue. Th [facility] e specimen is trisected entirely submitted in A1. [facility] Neetu Mohinder 08/26/2019 11:21 SERVICES Scanned Images [facility] SERVICES Specimen Tissue - Skin (tissue) specimen (specime n) Performing Organization Address City/State/ZIP Code Phon e Number [facility] [address] [place] [address] SERVICES documented in this encounter Visit Diagnoses Diagnosis Encounter for other general examination documented in this encounter Care Teams Fleet Sales Manager Relationship Specialty Start Date End Date Jadyn Abad MD PCP - General 08/25/19 [facility] [place] [place] [id number] documented as of this encounter
--- OUTSIDE RECORDS SUMMARY | 2022-03-13 00:36 | XMS_ITS | Encounter Summary ---
:1955 Author Organization [facility] Address [address] [place] [address] Care Team Providers Name Role Phone Unavailable Primary Care Provider Unavailable Encounter Details Date Type Department Care Team Description 06/12/2008 Before [facility] - Marie Bro Visit Maple conversion DO Nakul (Maple) [address] [facility] [address] [place] [address] ,[place], [place] [phone] (Wo rk) Social History Tobacco Use Types Packs/Day Years Used Date Never Assessed Sex Assigned at Date Recorded Not on file documented as of this encounter Plan of Treatment Not on filedocumented as of this encounter Procedures Procedure Name Priority Date/Time Associated Diagnosis Comme nts SURGICAL PATHOLOGY Routine 06/12/2008 0:00 EST Re sults for this procedure are i n the results section. documented in this encounter Results SURGICAL PATHOLOGY (06/12/2008 0:00 EST) Pathology Report: SURGICAL PATHOLOGY REPORT ? [facility] Reports generated via electr [employer] interface contain original data; ? LAB however they are lacking the format of the original report. ? Caution should be taken when reading/interpreting unformatted reports. ? Name: ? ROSA, ILIANA NA ? Accession #: ? [id number] ? : ? 1955 (Age: 53) ??F ? Collec t Date: ? 06/12/2008 ? Location: ? [facility] ? R eceive Date: ? 06/12/2008 ? Provider: NAKUL KIRK SON DO ? Copy to: RATNA Beltran D ? Final Pathologic Diagnosis: ? Colon, rectum, polyp, biopsy: ? 1. ?Tubular rudy noma. ? 2. ? No high grade dyspl destini or carcinoma identified. ? Document reviewed and electr onically signed by: ? Teja Ciampa, MD ? Report ??Date: 06/18/2008 14 :07 ? By the signature above, the attending physician certifies that he/she has ? personally conducted a gross and/or microscopic examination of the described ? specimens and rendered or co nfirmed the above diagnosis. ? Specimen(s) Received: ? Rectal polyp ? Clinical History: ? Screening colonoscopy ? Gross Description: ? Received in Raven' s fixative labelled Rosa and rectal polyp is a bustillo-pink polypoid tissue marshall suring 0.4 x 0.2 x 0.2 cm. ??The specimen is entirely submitted in one cassette. ? ?(Martin Macario)/naldog ? End of Report ? Specimen Performing Organization Address City/State/ZIP Code Phon e Number [facility] [address] [place] [address] SERVICES [facility] [address] [place] [address] documented in this encounter Visit Diagnoses Not on filedocumented in this encounter
--- OUTSIDE RECORDS SUMMARY | 2022-03-13 00:36 | XMS_ITS | Encounter Summary ---
:1955 Author Organization [facility] Address [address] [place] [address] Care Team Providers Name Role Phone Reed Jefferson MD Primary Care Provider Encounter Details Date Type Department Care Team Description 08/14/2013 Results Only [facility] Julieta Darling, CIVIL ENGINEERING PROJECT MANAGER Laboratory Services - [address] [address] Social History Tobacco Use Types Packs/Day Years Used Date Never Assessed Sex Assigned at Date Recorded Not on file documented as of this encounter Plan of Treatment Not on filedocumented as of this encounter Procedures Procedure Name Priority Date/Time Associated Diagnosis Comme nts PAP TEST- RESULT Routine 08/14/2013 0:00 EST Resu lts for this ONLY procedure are i n the results section. documented in this encounter Results PAP TEST- RESULT ONLY (08/14/2013 0:00 EST) Pathology Report: CYTOPATHOLOGY REPORT [facility] Reports generated via electronic interface contain aaliyah ginal data; however they are lacking the format of the original re port. Caution should be taken when reading/interpreting unfo rmatted reports. Name: ? ZACHARIAH ALVAREZ ? Accession #: ? [id number] ? : ? 1955 (Age: 58) ??F ?Collect Da te: ? 08/14/2013 ? Location: ? [facility] ? Receive Date: ? 014 ? Provider: JULIETA DARLING CIVIL ENGINEERING PROJECT MANAGER Copy to: REED EJFFERSON MD ? Final Report SPECIMEN ADEQUACY ? Satisfactory for Evaluation - transformation zone component present GENERAL CATEGORIZATION ? Negative for Intraepithelial Lesion or Malignan cy INTERPRETATION ? Shift in luca present suggestive of bacterial vaginosis. Other: Additional clinical information: Last pap WNL N egative HPV 05/19/2010 Specimen/Source: ??Pap Test, Cervix/Endocervix, ThinPr ep Imaging System with manual evaluation Document reviewed and electronically signed by: ? Kathleen Jeffries, CT(ASCP)(IAC) ? Report ??Date: 08/22/2013 12:56 HPV with Pap Test ? Date Ordered: ? 08/22/2013 ? Status: ?? Signed Out ?Date Complete: ? 08/23/2013 ? By: ??S ystem Interface ? Date Reported: ? 08/23/2013 ? Interpretation RESULT: Negative for HPV. No E6 or E7 mRNA is detected from HPV types 16,18,31,3 3,35, 39,45,51,52,56,58,59,66, and 68 by safety intern media nia amplification. Comments Document reviewed and electronically signed by: ? System Interface ? Report date: 08/23/2013 By the signature above, the attending physician certif ies that he/she has personally conducted a gross and/or microscopic examin ation of the described specimens and rendered or confirmed the above diagnosi s. End of Report Specimen Performing Organization Address City/State/ZIP Code Phon e Number [facility] [address] [place] [address] SERVICES [facility] [address] [place] [address] documented in this encounter Visit Diagnoses Not on filedocumented in this encounter Care Teams Lokie Engineer Relationship Specialty Start Date End Date Reed Jefferson MD PCP - General 08/15/13 3 [address] [place] [address] documented as of this encounter
--- OUTSIDE RECORDS SUMMARY | 2022-03-13 00:36 | XMS_ITS | Encounter Summary ---
:1955 Author Organization [facility] Address [address] [place] [address] Care Team Providers Name Role Phone Reed Jefferson MD Primary Care Provider Encounter Details Date Type Department Care Team Description 12/03/2014 Results Only [facility] Bradley Morris, DO [address] [facility] [address] [place] [address] (Wo rk) Social History Tobacco Use Types Packs/Day Years Used Date Never Assessed Sex Assigned at Date Recorded Not on file documented as of this encounter Plan of Treatment Not on filedocumented as of this encounter Procedures Procedure Name Priority Date/Time Associated Diagnosis Comme [facility] SURGICAL PATHOLOGY Routine 12/03/2014 18:29 Resul ts for this EDT procedure are i n the results section. documented in this encounter Results SURGICAL PATHOLOGY (12/03/2014 18:29 EDT) Pathology Report: SURGICAL PATHOLOGY REPORT [facility] Reports generated via electronic interface contain aaliyah ginal data; LABORATORY however they are lacking the format of the original re port. SERVICES Caution should be taken when reading/interpreting unfo rmatted reports. Name: ? ZACHARIAH ALVAREZ ? Accession #: ? [id number] ? : ? 1955 (Age: [age]) ??F ? Collect Date: ? 12/03/2014 ? Location: ? [facility] ? Receive Date: ? 12/04/19 15 ? Provider: BRADLEY MORRIS DO Copy to: HAIR ROBERSON MD ? Final Pathologic Diagnosis: RECTUM, POLYP, BIOPSY: - ??Fragments of tubular adenoma. Document reviewed and electronically signed by: MATT HENAO MD Report ??Date: 12/05/2014 16:29 By the signature above, the attending physician certif ies that he/she has personally conducted a gross and/or microscopic examin ation of the described specimens and rendered or confirmed the above diagnosi s. Specimen(s) Received: Rectal polyp Clinical History: H/O rectal adenoma Gross Description: ? Received in formalin labelled with proper patient identification (initials T, C) and rectal polyp are two pink-ta n polypoid tissues (0.4 x 0.3 x 0.2 cm and 0.6 x 0.5 x 0.2 cm). The margins are inked black, the smaller piece is bisected and entirely submitted in block 1, and the larger piece is trisected and entirely submitted in block 2. Jessica Duque 12/04/2014 09:01 AM End of Report Specimen Performing Organization Address City/State/ZIP Code Phon e Number [facility] [address] [place] [address] SERVICES documented in this encounter Visit Diagnoses Not on filedocumented in this encounter Care Teams Aerobics Teacher Relationship Specialty Start Date End Date Reed Jefferson MD PCP - General 08/15/13 08/24/19 [address] [place], [place] [phone] documented as of this encounter
--- OUTSIDE RECORDS SUMMARY | 2022-03-13 00:36 | XMS_ITS | Encounter Summary ---
:1955 Author Organization [facility] Address [address] [place] [address] Care Team Providers Name Role Phone Reed Jefferson MD Primary Care Provider Jadyn Abad MD Primary Care Provider Encounter Details Date Type Department Care Team Description 08/21/2019 Lab Requisition [facility] Stefanie Vallejo E ncounter for other Pathology & PAINT PREPPER general examination Laboratory Medicine [address] [place], [place] [address] [facility] [address] [place] [address] Social History Tobacco Use Types Packs/Day Years Used Date Never Assessed Sex Assigned at Date Recorded Not on file documented as of this encounter Plan of Treatment Not on filedocumented as of this encounter Procedures Procedure Name Priority Date/Time Associated Comments Diagnosis PAP TEST Today 08/21/2019 8:30 Results for this EST procedure are i n the results section. HUMAN PAPILLOMAVIRUS Today 08/21/2019 8:30 Resu lts for this (HPV) DETECTION-HIGH EST procedu re are in RISK TYPES the results section. documented in this encounter Results HUMAN PAPILLOMAVIRUS (HPV) DETECTION-HIGH RISK TYPES (08/21/2019 8:30 EST) Human Papillomavirus NegativeComment: No Negative [facility] (HPV) Detection-High E6 or E7 mRNA is CENTER LABORATOR Y Types detected from HPV SERVICES types 16,18,31,33,35,39,45 ,51,52,56,58,59,66, and 68 by information systems administrator mediated amplification. Specimen Pap Test - Cervix and/or Endocervix Performing Organization Address City/Va Hospital/ZIP Code Phon e Number [facility] [address] [place] [address] SERVICES PAP TEST (08/21/2019 8:30 EST) Specimens A. Cervix and/or [facility] Endocervix, , CENTER ThinPrep Imaging LABORATORY System with Manual SERVICES Evaluation Specimen Adequacy Satisfactory for [facility] Evaluation - CENTER transformation zone LABORATORY component absent SERVICES General Negative for [facility] Categorization intraepithelial CENTER lesion or malignancy LABORATORY SERVICES Descriptive Shift in luca [facility] Diagnosis present suggestive of CENTER bacterial vaginosis. LABORATORY SERVICES Attestation By the signature below, the attending physician certifies that they have personally conducted a gross and/or microscopic [facility] Electronically examination of the described specimens and rendered or confirmed the above diagnosis. CENTER signed by TIAGO Castellanos on 2019 SERVICES at 1459 Clinical History NONE [facility] SERVICES HPV The result for the Human Pap illomavirus (HPV) Detection-High Risk Types is Negative. No E6 or E7 mRNA is detected from HPV types 16,18,31,33,35,39,45,51,52,56,58,59,66, and 68 by information systems administrator mediated [facility] amplification.Testing was pe rformed on specimen [id number] and was resulted on 08/29/2019 1452 EDT by GABBY, LAB INSTRUMENT RESULTS IN [facility] SERVICES Scanned Images [facility] SERVICES Specimen Pap Test - Cervix and/or Endocervix Performing Organization Address City/Va Hospital/ZIP Code Phon e Number [facility] [address] [place] [address] SERVICES documented in this encounter Visit Diagnoses Diagnosis Encounter for other general examination documented in this encounter Care Teams Merchandise Presentation Manager Relationship Specialty Start Date End Date Reed Jefferson MD PCP - General 08/15/13 08/24/19 [facility] [address] [place], [place] [phone] Jadyn Abad MD PCP - General 08/25/19 [facility] [address] [place], [place] [address] documented as of this encounter
--- OUTSIDE RECORDS SUMMARY | 2022-03-13 00:36 | XMS_ITS | Encounter Summary ---
:[address] [facility] Address [address] [place] [address] Care Team Providers Name Role Phone Unavailable Primary Care Provider Unavailable Encounter Details Date Type Department Care Team Description 05/19/2010 Results Only [facility] Julieta Darling, KEVIN Laboratory Services - [address] [address] Social History Tobacco Use Types Packs/Day Years Used Date Never Assessed Sex Assigned at Date Recorded Not on file documented as of this encounter Plan of Treatment Not on filedocumented as of this encounter Procedures Procedure Name Priority Date/Time Associated Diagnosis Comme nts CYTOPATHOLOGY Routine 05/19/2010 0:00 EST Results for this procedure are i n the results section . documented in this encounter Results CYTOPATHOLOGY (05/19/2010 0:00 EST) Pathology Report: CYTOPATHOLOGY REPORT ? [facility] ? LAB Reports generated via [employer] interface contain original data; ? however they are lacking the format of the original report. ? Caution should be taken when reading/interpreting unformatted reports. ? Name: ? AMY LEEI ELAINA ? Accession #: ? [id number] ? : ? 1955 (Age: 55) ??F ?Collect Date: ? 05/19/2010 ? Location: ? [facility] ? R eceive Date: ? 05/21/2010 ? Provider: JULIETA M TRISHA FINANCIAL ANALYSIS CONSULTANT ? Copy to: ? Final Report ? SPECIMEN ADEQUACY ? Satisfactory for Eval uation ? - transformation zone compon ent present ? GENERAL CATEGORIZATION ? Negative for Intraepi thelial Lesion or Malignancy ? INTERPRETATION ? Shift in luca presen t suggestive of bacterial vaginosis. ? Last Menstural Period: 2007 ? Specimen/Source: ??Pap Test, Cervix/Endocervix, ThinPrep Imaging System with ? manual evaluation ? Document reviewed and electr onically signed by: ? Pat Cardenas, SCT( ASCP) ? Report ??Date: 12/06/ 2010 10:50 ? HPV with Pap Test ? Date Ordered: ? 1 07/27/2009 ? Status: ?? Signed Out ?Date Complete: ? 05/28/2010 ? By: ??System Interface ? Date Reported: ? 05/28/2010 ? Interpretation ? RESULT: Negative for HPV typ es 16, 18, 31, 33, 35, 39, 45, 51, 52, ? 56, 58, 59, and 68. ? Comments ? Document reviewed and electr onically signed by: ? System Interface ? Report date: 05/28/20 ? By the signature above, the attending physician certifies that he/she has ? personally conducted a gross and/or microscopic examination of the described ? specimens and rendered or co nfirmed the above diagnosis. ? End of Report ? Specimen Performing Organization Address City/State/ZIP Code Phon e Number [facility] [address] [place] [address] SERVICES [facility] [address] [place] [address] documented in this encounter Visit Diagnoses Not on filedocumented in this encounter
--- OUTSIDE RECORDS SUMMARY | 2022-03-13 00:36 | XMS_ITS | Encounter Summary ---
:[address] [facility] Address [address] [place] [address] Care Team Providers Name Role Phone Jadyn Abad MD Primary Care Provider Encounter Details Date Type Department Care Team Description 01/15/2022 Lab Requisition [facility] Merly Malik Encounter for other Pathology & [address] general examination Laboratory Medicine [facility] [id number] [address] [facility] [phone] [place] [address] (Work) [phone] Social History Tobacco Use Types Packs/Day Years Used Date Never Assessed Sex Assigned at Date Recorded Not on file documented as of this encounter Plan of Treatment Not on filedocumented as of this encounter Procedures Procedure Name Priority Date/Time Associated Diagnosis Comme nts SURGICAL PATHOLOGY Today 01/15/2022 8:12 EDT Encounter for o ther Results for this general examination procedur e are in the results section. documented in this encounter Results SURGICAL PATHOLOGY (01/15/2022 8:12 EDT) Note to Patient The following [facility] MEDICAL pathology results CENTER have been interpreted LABORATORY by your pathologist SERVICES and may be available to you before your health provider has had the opportunity to review them. Please allow time for your provider to receive these results and explore management options, if applicable. Final Diagnosis A. ENDOCERVIX, CURETTINGS: [facility] MEDICAL - Fragments of benign endocervix and benign squamous e pithelium. CENTER LABORATORY B. ENDOMETRIUM, CURETTINGS: SERVICES - Fragments of benign endocervix and benign squamous e pithelium. - Endometrial tissue insufficient for diagnosis. Attestation By the signature [facility] MEDICAL Electronica lly below, the attending CENTER signed by Alex, physician certifies LABORATORY Chema Subramanian MD on that they have 1) SERVICES 01/19/2022 a t 1147 personally conducted a gross and/or microscopic examination of the described specimen(s), and/or personally interpreted the results of laboratory testing of the described specimen(s), and 2) personally rendered or confirmed the above diagnosis. Clinical History Endometrial [facility] LABORATORY SERVICES Gross Description A. [facility] MEDICAL Received in formalin t[place] d with proper patient identification (initials T, C) and endocervical curettings is a 1.5 x 1.4 x 0.3 cm aggregate of bustillo-white soft tissue and mucus. The specimen is entirely submitted in A1. CENTER LABORATORY B. SERVICES Received in formalin [place] d with proper patient identification (initials T, C) and endometrial curettings H is a 1.8 x 1.0 x 0.5 cm aggregate of bustillo mucus. The specimen is entirely submitted in B1. ADELIA ENG(ASCP) 01/16/2022 10:45 Performing Lab [facility] Scanned Images [facility] Specimen Tissue - Entire endometrium (body struct ure) Tissue specimen (specimen) - Entire endo metrium (body structure) Performing Organization Address City/State/ZIP Code Phon e Number [facility] [address] [place] [address] SERVICES documented in this encounter Visit Diagnoses Diagnosis Encounter for other general examination documented in this encounter Care Teams Head Rigger Relationship Specialty Start Date End Date Jadyn Abad MD PCP - General 08/25/[address] [place] [address] documented as of this encounter
--- NOTE | 2022-03-13 08:00 | DI.RAD_ITS ---
Exam(s) XR FOOT RT COMPLETE EXAM: XR FOOT RT COMPLETE CLINICAL HISTORY: R foot and ankle pain,m29.673,m25.579. TECHNIQUE: 2D digital imaging was performed. Three views. COMPARISON: No exams were available for comparison FINDINGS: BONES: No acute fracture is present. No bony destructive lesion is seen. There is prominent spurring at the dorsum of the talus. Spurring is also noted at the calcaneal cuboid joint. There are mild d egenerative changes and mild hallux valgus at the 1st MTP joint. There is a large ossicle posterior to the talus. JOINTS: No dislocation present. SOFT TISSUE: Normal. IMPRESSION: Degenerative changes and mild hallux valgus. DATA REPOSITORY: RADIATION DOSE DELIVERED:
--- NOTE | 2022-03-13 15:03 | DI.RAD_ITS ---
Exam(s) XR ANKLE RT COMPLETE EXAM: XR ANKLE RT COMPLETE CLINICAL HISTORY: R foot and ankle pain,m79.673,m25.579. TECHNIQUE: 2D digital imaging was performed. Three views. COMPARISON: CR XR FOOT RT COMPLETE from 03/13/2022 FINDINGS: BONES: No acute fracture is present. No bony destructive lesion is seen. There is a question of a s mall subchondral cyst in the lateral talar dome. There is a large ossicle posterior to the talus. JOINTS: The ankle mortise is normally aligned. There is mild periarticular spurring at the tibiotalar joint. There is spurring at the dorsal talonavicular joint. SOFT TISSUE: Normal. IMPRESSION: Small subchondral cyst in the lateral talar dome. Mild degenerative changes. DATA REPOSITORY: RADIATION DOSE DELIVERED:
== END ==
PROVIDERS: PCP Nurse Practitioner; Visit Provider Podiatrist Foot & Ankle Surgery
DX: M19.071 Primary osteoarthritis, right ankle and foot (principal); M20.11 Hallux valgus (acquired), right foot; M19.072 Primary osteoarthritis, left ankle and foot
CPT/HCPCS: 73610; 73630

== ENCOUNTER → 2022-05-29 00:53 | Outpatient (CLI) | payer OTHER, SELFPAY ==
--- NOTE | 2022-05-29 15:13 | DI.DEXA_ITS ---
Exam(s) XR DEXA BONE DENSITY W/WO TALISHA EXAM: XR DEXA BONE DENSITY W/WO TALISHA CLINICAL HISTORY: SCREENING FOR OSTEOPOROSIS IN POSTMENOPAUSAL WOMAN,Z78.0 TECHNIQUE: COMPARISON: No exams were available for comparison FINDINGS: Lateral Spine Image: Unremarkable. No compression deformities identified. Left hip: Total T-Score: -1.0 Total Z-Score: 0.2 T- and Z-scores: Within normal limits. Lumbar Spine: Total T-Score: -1.3 Total Z-Score: 0.5 T- and Z-scores: Findings are consistent with osteopenia. IMPRESSION: No evidence of osteoporosis.
== END ==
PROVIDERS: PCP Nurse Practitioner; Visit Provider Nurse Practitioner
DX: Z78.0 Asymptomatic menopausal state (principal); Z13.820 Encounter for screening for osteoporosis
CPT/HCPCS: 77080

== ENCOUNTER 2022-09-30 17:11 | Outpatient (REF) | payer OTHER, SELFPAY ==
--- NOTE | 2022-09-30 16:35 | PAPFT_PTH ---
PATIENT: Marilyn Alvarez LOC: [facility] U#:[id number] AGE/SX: 67/F ROOM: RE09/30/[address]: Yudi Candelario MD : 1955 BED: DIS: 09/30/2022 SPEC #: [id number] RECD: 09/30/22 17:31 STATUS: HEAVENLY REMaynor #: [id number] EBONIE: 09/30/22 16:[address]: Yudi Candelario DEPT: [facility] Cytology RECD BY: Trista Hinton ENTERED: 09/30/22 17:32 SP TYPE: PAPFT NICOLASA DR: Callie Lugo APRN Tissues: 1 - CX/ENDOCX FOR PAP SMEARS Procedures: PAP THIN PREP/[facility] Screening Comments: [id number]
== END 2022-09-30 17:12 | disposition home or self-care (01) ==
LOC: LBN 17:11
PROVIDERS: PCP Nurse Practitioner; Visit Provider Obstetrics & Gynecology
DX: Z12.4 Encounter for screening for malignant neoplasm of cervix (principal)
CPT/HCPCS: 88142

== ENCOUNTER 2022-12-02 02:55 | Outpatient (CLI) | payer OTHER, SELFPAY ==
--- NOTE | 2022-12-02 07:50 | DI.MAMMO_ITS ---
Exam(s) MAMMO SCREENING EXAM: MAMMO SCREENING CLINICAL HISTORY: screening,z12.39. TECHNIQUE: Bilateral full field digital CC and MLO mammographic images were obtained with 3D tomosyn thesis and utilizing computer aided detection (CAD). COMPARISON: Prior mammograms were reviewed. FINDINGS: There has been no significant change in the appearance and distribution of the fibroglandular tissue. Stable bilateral small benign-appearing nodules and microcalcifications again noted, unchanged. There are no new spiculated masses nor malignant appearing microcalcification groups. There is no significant architectural distortion nor skin thickening-retraction. IMPRESSION: No radiographic evidence of malignancy. BI-RADS Category 1 - Negative Breast Density - Category A - Almost entirely fatty Breast density Category C or D implies that the patient has dense breast tissue. Dense breast tissue can make it harder to find cancer on a mammogram. Dense breast tissue is also associated with an incr eased risk of breast cancer. This information about the result of the mammogram report was provided to the patient to raise their awareness. Use this report when you speak with the patient about their risks for breast cancer, which includes their family history. At that time, you may recommend additional screening tests (Ultrasoun d or MRI) as these tests may add significant information. A negative radiographic report should not delay biopsy if a dominant or clinically suspicious mass is present. Up to ten percent of cancers are not identified on mammography. A negative report may reinforce clinical impression. Adenosis and dense breasts may obscure an underlying neoplasm. False positive reports average 6 to 10%. Patient will receive a letter notifying them of these results.
== END 2022-12-02 03:15 ==
LOC: DI 02:55
PROVIDERS: PCP Nurse Practitioner; Visit Provider Nurse Practitioner
DX: Z12.31 Encounter for screening mammogram for malignant neoplasm of breast (principal)
CPT/HCPCS: 77063; 77067

== ENCOUNTER 2023-08-17 14:54 | Outpatient (CLI) | payer OTHER, SELFPAY ==
--- NOTE | 2023-08-17 14:45 | RT.EKG_ITS ---
APPROVED REPORT Exam: Resting ECG Reason for Exam: chest/abdominal pain Patient Location: O HR:61 bpm ECG Measurements Heart Rate 61 AXIS FL 154 P 8 QRSd 95 QRS -29 QT 414 T 20 QTc 417 Conclusion Sinus rhythm...normal P axis, V-rate 50- 99 Borderline left axis deviation...QRS axis (-15,-29) Otherwise normal ECG
== END 2023-08-17 14:55 | disposition home or self-care (01) ==
LOC: DI.KIM 14:55
PROVIDERS: PCP Nurse Practitioner; Visit Provider Nurse Practitioner
DX: R07.9 Chest pain, unspecified (principal)
CPT/HCPCS: 93010

== ENCOUNTER 2023-08-18 07:52 | Outpatient (CLI) | payer OTHER, SELFPAY ==
[2023-08-18 07:41] LABS: Abs Immature Grans 0.02 10^3/uL (0.0-0.06); Absolute Basophil Count 0.04 10^3/uL (0.0-0.2); Absolute Eosinophil Count 0.13 10^3/uL (0.0-0.7); Absolute Lymphocyte Count 1.13 10^3/uL (1.2-3.4); Absolute Monocyte Count 0.67 10^3/uL (0.1-0.8); Absolute Neutrophil Count 4.08 10^3/uL (1.2-6.7); Basophils % 0.7; Eosinophils % 2.1; HCT 41.4 % (36.0-46.0); HGB 13.9 g/dL (11.2-15.7); Immature Grans % 0.3; Lymphocytes % 18.6; MCHC 33.6 % (32.0-36.0); MCV 86 fL (80-95); Neutrophils % 67.3; Platelet Count 204 10^3/uL (130-400); RBC 4.79 10^6/uL (3.93-5.22); RDW 13.8 % (11.7-14.6); RDW-SD 43.8 fL; WBC 6.07 10^3/uL (4.4-10.8)
[2023-08-18 07:54] LABS: Hemoglobin A1C 5.6 % (<5.7)
[2023-08-18 08:25] LABS: Vitamin D 25 Total 21.1 ng/mL (30-100)
[2023-08-18 08:40] LABS: ALT 384 U/L (14-59); AST 112 U/L (15-37); Albumin 3.4 g/dL (3.4-5.0); Alkaline Phosphatase 232 U/L (46-116); Anion Gap 10.4 mmol/L (3-11); BUN 12 mg/dL (7-18); Bilirubin, Total 0.8 mg/dL (0.2-1.0); CO2 28.6 mmol/L (21.0-32.0); Calcium 9.4 mg/dL (8.5-10.1); Calculated LDL 114 mg/dL (<100); Chloride 103 mmol/L (98-107); Cholesterol 186 mg/dL (<200); Estimated GFR 62.13 (mL/min/1.73m2); Glucose 100 mg/dL (74-106); HDL Cholesterol 56 mg/dL (40-60); Potassium 3.8 mmol/L (3.5-5.1); Sodium 142 mmol/L (136-145); TSH (W/Ref FT4) 1.45 uIU/mL (0.36-3.74); Total Protein 7.6 g/dL (6.4-8.2); Triglyceride 81 mg/dL (<150); Vitamin B12 549 pg/mL (193-986)
[2023-08-18 09:07] LABS: C-Reactive Protein 2.66 mg/dL (<or=0.5)
== END 2023-08-18 07:53 | disposition home or self-care (01) ==
LOC: LBO 07:53
PROVIDERS: PCP Nurse Practitioner; Visit Provider Nurse Practitioner
DX: R53.83 Other fatigue (principal); R73.03 Prediabetes; E55.9 Vitamin D deficiency, unspecified; E66.8 Other obesity; R79.82 Elevated C-reactive protein (CRP)
CPT/HCPCS: 36415; 80053; 80061; 82306; 82607; 83036; 84443; 85025; 86140

== ENCOUNTER → 2023-08-19 04:38 | Outpatient (CLI) | payer OTHER, SELFPAY ==
--- NOTE | 2023-08-19 07:00 | DI.US_ITS ---
Exam(s) US ABDOMEN EXAM: US ABDOMEN CLINICAL HISTORY: Chest pain, abdominal pain after eating, Elevated LFT,r10.9,r79.89 TECHNIQUE: Ultrasound abdomen performed using standard protocol. COMPARISON: No exams were available for comparison FINDINGS: ABDOMINAL AORTA AND IVC: Visualized portions normal caliber. PANCREAS: Normal where visualized. LIVER: The liver measures 18.2 cm long. There is increased echogenicity of the liver consistent with fatty infiltration. No mass is seen sonographically. Hepatopetal flow in the Portal Vein. GALLBLADDER:No evidence of cholelithiasis. No evidence of wall thickening. No pericholecystic fluid i dentified. There is an immobile 3 x 1.7 x 3.3 cm echogenic lobulated mass along the wall of the body of the gallbladder. BILIARY SYSTEM: Common bile duct measures < 7 mm. No intrahepatic biliary ductal dilation. MONTGOMERY'S SIGN: Negative. KIDNEYS: Kidneys are symmetric in size. There is a 6 mm echogenic focus in the cortex of the left kid boris. This is nonspecific but may represent a parenchymal calcification or calculus. No obstruction. No evidence of hydronephrosis. No renal mass or cyst identified. SPLEEN: Not enlarged. ASCITES: None seen. IMPRESSION: 1. 3 x 1.7 x 3.3 cm echogenic lobulated mass along the wall of the gallbladder. Further evaluation w ith CT or MRI of the abdomen is recommended. 2. Fatty infiltration of the liver and hepatomegaly. Unexpected findings DATA REPOSITORY:
== END ==
PROVIDERS: PCP Nurse Practitioner; Visit Provider Nurse Practitioner
DX: R79.89 Other specified abnormal findings of blood chemistry (principal); R93.2 Abnormal findings on diagnostic imaging of liver and biliary tract
CPT/HCPCS: 76700

== ENCOUNTER → 2023-08-26 00:47 | Outpatient (CLI) | payer OTHER, SELFPAY ==
--- NOTE | 2023-08-26 07:15 | DI.NM_ITS ---
APPROVED REPORT Exam: Pharmacologic Patient Location: Out-Patient Room/Bed: Stress Nurse: Stefanie Malik RN Ordering Provider:CARTER SMITH, Contact Number: [phone] BMI: 34.33 Baseline Rhythm: Sinus Bradycardia Indications: episode chest heaviness, chest pain, family h/o heart disease Medical History Medical History: Cerebral palsy (R ankle deformity), obesity, depression Cardiac Medications: [place]'s wart, aspirin, fish oil, meloxicam Allergies: NKA Cardiac Risk Factors: Family hx, former smoker, obesity Previous Cardiac Procedures: None Pretest Chest Pain Characteristics: None Exercise History: Indeterminate Physical Disabilities: Left ankle Lung Sounds: Clear to auscultation Heart Sounds: Bradycardia Stress Test Details Test: Pharmacologic stress was paired with low level exercise. Reason for pharmacologic stress test: physical limitation. Nuclear Acquisition: Rest Tc-99m/Stress Tc-99m 1 day Rest Isotope: Tc-99m Sestamibi. Dose: 9.7 Date: 08/26/2023 Injection Time: 0835 Stress Isotope: Tc-99m Sestamibi. Dose: 32.5 Date: 08/26/2023 Injection Time: 0955 HR Resting HR Supine: 53 bpm Max Heart Rate (APMHR): 154.367045 bpm Resting HR Standin bpm Target HR (85% APMHR): 130.398809 bpm Max HR Achieved: 95 bpm % of APMHR: 61.69 Recovery HR: 78 bpm BP Resting BP Supine: 154/84 mmHg Resting BP Standin/86 mmHg Max BP: 156/86 mmHg Recovery BP: 148/78 mmHg ECG Resting ECG: Sinus Bradycardia Stress ECG: Sinus Rhythm ST Change: Nondiagnostic low heart rate Arrhythmia: Occasional PAC's Recovery ECG: Sinus Rhythm Recovery ST Change: Nondiagnostic low heart rate Recovery Arrhythmia: Occasional PAC's, rare PVC Clinical Angina Score: None Rate Pressure Product: 27632 Stress ECG Conclusion 1. Resting electrocardiogram was normal 2. Patient underwent testing using a combination of low-level exercise and pharmacologic stress with regadenoson 3. Peak heart rate achieved was 62% of maximal predicted for age 4. Electrocardiographic portion of the test was nondiagnostic 5. See MPI report Stress Test Summary STAGE HR BP SpO2 Symptoms NOTES Supine 53 154/84 Standing 56 156/86 1 min post Lexiscan injection 94 146/80 3 min post Lexiscan injection 80 144/72 6 min post Lexiscan injection 78 148/78 MPI Conclusion Myocardial perfusion is normal. There is no ischemia or evidence of prior infarction EF is 69% with normal wall motion Radiologist Interpretation Radiologist agrees with Asset Protection Representative's Interpretation. Radiologist Interpretation by: Ajay Gallegos MD Interpretation Date/Time: 08/26/2023 17:49:06
[2023-08-26] MEDS: Regadenoson 0.4 MG/5 ML SYR IVP (10:35)
== END ==
PROVIDERS: PCP Nurse Practitioner; Visit Provider Nurse Practitioner
DX: R07.9 Chest pain, unspecified (principal); Z82.49 Family history of ischemic heart disease and other diseases of the circulatory system
CPT/HCPCS: 78452; 93016; 93018; 93017; J2785

== ENCOUNTER 2023-08-26 15:31 | Outpatient (REF) | payer OTHER, SELFPAY ==
[2023-08-26 19:24] LABS: Bacteria Rare HPF (Negative); Casts Negative LPF (Negative); Crystals Negative HPF (Negative); Epithelial Cells Moderate HPF (Negative); Mucus Negative (Negative); RBC Negative HPF (0-2)
[2023-08-26 19:25] LABS: C & S Indicated? No/Sq. Contamination
== END 2023-08-26 15:32 | disposition home or self-care (01) ==
LOC: LBN 15:31
PROVIDERS: Student in an Organized Health Care Education/Training Program; PCP Nurse Practitioner; Referring Provider Nurse Practitioner; Visit Provider Nurse Practitioner
DX: R31.9 Hematuria, unspecified (principal)
CPT/HCPCS: 81015

== ENCOUNTER → 2023-09-06 04:44 | Outpatient (CLI) | payer OTHER, SELFPAY ==
--- NOTE | 2023-09-06 06:45 | DI.MRI_ITS ---
Exam(s) MR ABDOMEN WO/W EXAM: MR ABDOMEN WO/W CLINICAL HISTORY: GB mass seen on US,ELEVATED LFT'S,K82.8,R79.89, CREAT 08/18 TECHNIQUE: Multiplanar multisequence MRI was performed with both pre and post contrast infused seque nces. Contrast injected sequences were performed following IV injection of 16 cc of Dotarem. Post-contrast images were performed out to 15 minutes. COMPARISON: US US ABDOMEN from 08/19/2023 FINDINGS: VISUALIZED LUNG BASES: No pleural effusions evident. There is no ascites evident. LIVER: Upper normal size. Signal dropout on out of phase imaging noted consistent with diffuse steat osis. However, there are no discrete focal hepatic lesions identified. BILIARY: There are no gallstones but there is a well-defined semi lunar shaped mass on the dependent- posterior wall the gallbladder which corresponds to the finding described on the recent ultrasound of 08/19/2023. this measures approximately 3.5 cm by 1.4 cm by 2.7 cm exhibits equivocal enhancement.Do es not appear to extend beyond the gallbladder wall and there is no abnormal signal in the adjacent l iver. CBD is not dilated. No significantly dilated intrahepatic ducts. There is no adenopathy in t he andres hepatis region nor elsewhere in the retroperitoneum. PANCREAS: There is no evidence of pancreatic mass nor dilatation of the pancreatic duct. SPLEEN: Spleen is not enlarged and there are no intrasplenic lesions.Splenic and portal veins are pat ent ADRENALS: There are no significant adrenal masses. KIDNEYS: No solid renal masses. No hydronephrosis.No cysts evident. ABDOMINAL AORTA: Not enlarged and there is no significant para-aortic adenopathy. ANTERIOR ABDOMINAL WALL/GI: There is no evidence of significant anterior abdominal wall hernia in the field of view of this study.Is no evidence of obvious bowel obstruction. OSSEOUS: There are no lytic osseous lesions in the field of view of this study. IMPRESSION: 1. There is a homogeneous appearing 3.5 x 1.4 x 2.7 cm mass on the dependent wall of the nondistended gallbladder exhibiting equivocal enhancement and not extending beyond the wall of the gallbladder. Probable mass as opposed to sludge. However, it might be prudent to perform additional imaging seque nces with the patient prone and other positions to determine if this is mobile such as a prominent agustín th ???sludge ball??? as opposed to neoplasm. Recommend additional sequences at no additional charge with the patient prone and other positions. This would not require reinjection of contrast. An addendum-final report will be issued at that time after these additional sequences are performed. 2. Hepatic steatosis but no evidence of significant hepatic lesions. 3. No other significant findings. DATA REPOSITORY:
[2023-09-06] MEDS: Gadoterate meglumine 20 ML VIAL IVP (09:01)
== END ==
PROVIDERS: PCP Nurse Practitioner; Visit Provider Nurse Practitioner
DX: K82.8 Other specified diseases of gallbladder (principal); R79.89 Other specified abnormal findings of blood chemistry
CPT/HCPCS: 74183

== ENCOUNTER → 2023-09-16 14:54 | Outpatient (BNVA) | payer OTHER, SELFPAY | PROVIDERS: PCP Nurse Practitioner; Referring Provider Nurse Practitioner; Visit Provider Surgery | DX: K82.9 Disease of gallbladder, unspecified (principal); K57.30 Diverticulosis of large intestine without perforation or abscess without bleeding; E88.89 Other specified metabolic disorders; G80.9 Cerebral palsy, unspecified | CPT/HCPCS: 99214 ==

== ENCOUNTER → 2023-12-06 05:05 | Outpatient (CLI) | payer OTHER, SELFPAY ==
--- NOTE | 2023-12-06 07:51 | DI.MAMMO_ITS ---
Exam(s) MAMMO SCREENING EXAM: MAMMO SCREENING CLINICAL HISTORY: screening,z12.39 TECHNIQUE: Mammograms were interpreted according to the usual protocol including computer analysis w [employer] CAD system, tomosynthesis and C-view imaging. COMPARISON: 2014 through 2022 FINDINGS: The breasts are composed of scattered fibroglandular densities, Breast Density category B. No suspicious masses or suspicious microcalcifications are seen. No skin thickening or abnormal axillary lymph nodes are seen. There has been no significant change from prior exams. IMPRESSION: BI-RADS Category 1, Negative mammogram Yearly screening mammography is recommended. Breast Density - Category B, scattered fibroglandular densities. A negative radiographic report should not delay biopsy if a dominant or clinically suspicious mass is present. Up to ten percent of cancers are not identified on mammography. A negative report may reinforce clinical impression. Adenosis and dense breasts may obscure an underlying neoplasm. False positive reports average 6 to 10%. Patient will receive a letter notifying them of these results.
== END ==
PROVIDERS: PCP Nurse Practitioner; Visit Provider Nurse Practitioner
DX: Z12.31 Encounter for screening mammogram for malignant neoplasm of breast (principal)
CPT/HCPCS: 77063; 77067

== ENCOUNTER → 2023-12-15 01:09 | Outpatient (CLI) | payer OTHER, SELFPAY ==
--- NOTE | 2023-12-15 06:30 | DI.US_ITS ---
Exam(s) US ABDOMEN LIMITED EXAM: US ABDOMEN LIMITED CLINICAL HISTORY: f/u biliary sludge ball,elevated LFT's,steatosis,r79.89,e88.89 TECHNIQUE: Ultrasound abdomen performed using standard protocol. COMPARISON: US US ABDOMEN from 08/19/2023 CT,NM,TMT NM MPI REST STRESS GRP from 08/26/2023 MR MR ABDOMEN WO/W from 09/06/2023 MR MR ABDOMEN WO from 09/07/2023 FINDINGS: LIVER: Normal size.. Mildly to moderately increased liver echogenicity consistent with hepatic steat osis. No focal liver lesions are seen. GALLBLADDER: No change in sludge ball. No evidence of cholelithiasis. No evidence of wall thickening . No pericholecystic fluid identified. MONTGOMERY'S SIGN: Negative. BILIARY SYSTEM: No intrahepatic or extrahepatic biliary ductal dilation. Right kidney: Normal size. No evidence of renal calculi. No evidence of hydronephrosis. No renal mas s or cyst identified. PANCREAS: Normal where visualized. ABDOMINAL AORTA AND IVC: Visualized portions normal caliber. ASCITES: None seen. IMPRESSION: No change in appearance of sludge ball. Stable hepatic steatosis noted. DATA REPOSITORY:
== END ==
PROVIDERS: PCP Nurse Practitioner; Visit Provider Surgery
DX: K76.0 Fatty (change of) liver, not elsewhere classified (principal); R79.89 Other specified abnormal findings of blood chemistry; E88.89 Other specified metabolic disorders; K82.8 Other specified diseases of gallbladder
CPT/HCPCS: 76705

== ENCOUNTER 2023-12-15 01:52 | Outpatient (CLI) | payer OTHER, SELFPAY ==
[2023-12-15 08:03] LABS: Prothrombin Time 10.5 sec (9.1-11.1)
[2023-12-15 08:29] LABS: ALT 25 U/L (14-59); AST 17 U/L (15-37); Albumin 3.8 g/dL (3.4-5.0); Alkaline Phosphatase 110 U/L (46-116); Bilirubin, Direct 0.1 mg/dL (0.0-0.2); Bilirubin, Total 0.54 mg/dL (0.2-1.0); GGT 27 U/L (5-55); LDH 158 U/L (81-234); Total Protein 7.9 g/dL (6.4-8.2)
[2023-12-15 08:30] LABS: C-Reactive Protein < 0.50 mg/dL (<or=0.5)
[2023-12-15 08:54] LABS: Ferritin 28 ng/mL (8-252)
[2023-12-15 20:42] LABS: Hepatitis C Ab w Rflx HCV PCR Negative (Negative)
[2023-12-15 20:48] LABS: HIV-1/2 Ag & Ab Screen Negative (Negative)
[2023-12-15 20:50] LABS: Hep B Core Antibody Negative (Negative)
[2023-12-16 14:34] LABS: ANA Interpretation Negative (Negative)
== END 2023-12-15 01:53 | disposition home or self-care (01) ==
LOC: LBO 01:52
PROVIDERS: PCP Nurse Practitioner; Visit Provider Surgery
DX: E88.89 Other specified metabolic disorders (principal); R79.89 Other specified abnormal findings of blood chemistry; K57.30 Diverticulosis of large intestine without perforation or abscess without bleeding; R31.9 Hematuria, unspecified; G80.9 Cerebral palsy, unspecified; E66.9 Obesity, unspecified; E88.9 Metabolic disorder, unspecified
CPT/HCPCS: 36415; 80076; 86704; 86803; 87389; 82728; 82977; 83615; 83915; 85610; 86038; 86140

== ENCOUNTER → 2023-12-20 14:16 | Outpatient (BNVA) | payer OTHER, SELFPAY | PROVIDERS: PCP Nurse Practitioner; Referring Provider Nurse Practitioner; Visit Provider Podiatrist | DX: L60.3 Nail dystrophy (principal); B35.1 Tinea unguium; M79.674 Pain in right toe(s); M79.675 Pain in left toe(s) | CPT/HCPCS: 11721 ==

== ENCOUNTER → 2024-04-24 14:14 | Outpatient (BNVA) | payer OTHER, SELFPAY | PROVIDERS: PCP Nurse Practitioner; Referring Provider Nurse Practitioner; Visit Provider Podiatrist | DX: L60.3 Nail dystrophy (principal); B35.1 Tinea unguium; M79.674 Pain in right toe(s); M79.675 Pain in left toe(s) | CPT/HCPCS: 11720 ==

== ENCOUNTER 2024-05-24 14:37 | Outpatient (REF) | payer OTHER, SELFPAY ==
[2024-05-24 15:56] LABS: Bilirubin Negative (Negative); Blood Negative (Negative); Clarity Clear (Clear); Glucose Negative (Negative); Ketones Negative (Negative); Leukocyte Esterase Negative (Negative); Nitrite Negative (Negative); Urobilinogen 0.2 mg/dL (Up to 0.2)
== END 2024-05-24 14:38 | disposition home or self-care (01) ==
LOC: LBN 14:37
PROVIDERS: PCP Nurse Practitioner; Visit Provider Nurse Practitioner
DX: R31.9 Hematuria, unspecified (principal); Z00.00 Encounter for general adult medical examination without abnormal findings
CPT/HCPCS: 81003

== ENCOUNTER 2024-06-12 02:24 | Outpatient (CLI) | payer OTHER, SELFPAY ==
[2024-06-12 08:15] LABS: ALT 23 U/L (14-59); AST 16 U/L (15-37); Albumin 3.5 g/dL (3.4-5.0); Alkaline Phosphatase 127 U/L (46-116); Bilirubin, Direct 0.1 mg/dL (0.0-0.2); Bilirubin, Total 0.41 mg/dL (0.2-1.0); Total Protein 7.6 g/dL (6.4-8.2)
== END 2024-06-12 02:25 | disposition home or self-care (01) ==
LOC: LBO 02:24
PROVIDERS: PCP Nurse Practitioner; Visit Provider Nurse Practitioner
DX: R74.8 Abnormal levels of other serum enzymes (principal)
CPT/HCPCS: 36415; 80076

== ENCOUNTER 2024-10-16 00:19 | Outpatient (CLI) | payer MEDICARE, SELFPAY ==
--- NOTE | 2024-10-16 08:00 | DI.RAD_ITS ---
Exam(s) XR SHOULDER LT COMPLETE 2+V EXAM: XR SHOULDER LT COMPLETE 2+V CLINICAL HISTORY: AC joint pain M25.512 PAIN LEFT SHOULDER. TECHNIQUE: 2D digital imaging was performed. Three views. COMPARISON: No exams were available for comparison FINDINGS: BONES: No acute fracture is present. No bony destructive lesion is seen. JOINTS: No dislocation present. Spurring at the AC joint and margin of the glenoid. Glenohumeral jethro int space is maintained. SOFT TISSUE: Normal. IMPRESSION: Moderate degenerative changes of the AC joint. DATA REPOSITORY: RADIATION DOSE DELIVERED:
== END 2024-10-16 00:39 ==
PROVIDERS: PCP Nurse Practitioner; Visit Provider Emergency Medicine
DX: M25.512 Pain in left shoulder (principal)
CPT/HCPCS: 73030

== ENCOUNTER → 2024-11-08 14:25 | Outpatient (BNVA) | payer MEDICARE, SELFPAY | PROVIDERS: PCP Nurse Practitioner; Referring Provider Nurse Practitioner; Visit Provider Student in an Organized Health Care Education/Training Program | DX: M25.512 Pain in left shoulder (principal) | CPT/HCPCS: 20610; J1010 ==

== ENCOUNTER 2024-12-06 16:21 | Outpatient (CLI) | payer MEDICARE, SELFPAY ==
--- NOTE | 2024-12-06 16:15 | RT.EKG_ITS ---
APPROVED REPORT Exam: Resting ECG Reason for Exam: Chest pain Patient Location: O HR:61 bpm ECG Measurements Heart Rate 61 AXIS [place] 130 P 50 QRSd 95 QRS -32 QT 421 T 12 QTc 424 Conclusion Sinus rhythm...normal P axis, V-rate 50- 99 Borderline left axis
== END 2024-12-06 16:22 | disposition home or self-care (01) ==
LOC: DI.KIM 16:22
PROVIDERS: PCP Nurse Practitioner; Visit Provider Nurse Practitioner Family
DX: R07.9 Chest pain, unspecified (principal)
CPT/HCPCS: 93010

== ENCOUNTER 2024-12-06 17:06 | Inpatient (IN) | payer MEDICARE, SELFPAY ==
[2024-12-06] VITALS (10 sets, daily range): BP systolic 145–160; BP diastolic 60–82; PULSE 61–72; RESP 15–26; TEMP 36.8–37; O2SAT 94–97
--- NOTE | 2024-12-06 17:00 | RT.EKG_ITS ---
APPROVED REPORT Exam: Resting ECG Reason for Exam: Chest pain Patient Location: E HR:69 bpm ECG Measurements Heart Rate 69 AXIS HI 112 P 3 QRSd 92 QRS -34 QT 400 T 10 QTc 428 Conclusion Sinus rhythm. 69 left axis no stemi
--- NOTE | 2024-12-06 17:15 | DI.RAD_ITS ---
Exam(s) XR CHEST 2V PA LATERAL EXAM: XR CHEST 2V PA LATERAL CLINICAL HISTORY: Chest pain TECHNIQUE: 2D digital imaging was performed. Two views. COMPARISON: No exams were available for comparison FINDINGS: HEART: Normal size. Aorta: Not dilated. PULMONARY VASCULATURE: Normal. MEDIASTINUM: Unremarkable. LUNGS: Clear. PLEURAL SPACE: No pleural effusion or pneumothorax. BONE:Unremarkable for age. SOFT TISSUES: Unremarkable. IMPRESSION: No acute abnormality. DATA REPOSITORY: RADIATION DOSE DELIVERED:
[2024-12-06] MEDS: Aspirin 81 MG CHEW 324 MG CH (17:25)
[2024-12-06] MEDS: Ondansetron 4 MG/2 ML VIAL IVP (17:50)
[2024-12-06] MEDS: Normal Saline 1,000 ML 1000 ML IV (17:50)
[2024-12-06 17:53] LABS: HCT 42.7 % (36.0-46.0); HGB 14.4 g/dL (11.2-15.7); MCH 28.5 pg (27.0-33.0); MCHC 33.7 % (32.0-36.0); MCV 84 fL (80-95); MPV 10.1 fL (8.0-11.0); Platelet Count 290 10^3/uL (130-400); RBC 5.06 10^6/uL (3.93-5.22); RDW-SD 43.3 fL; WBC 21.26 10^3/uL (4.4-10.8)
--- NOTE | 2024-12-06 18:00 | DI.CT_ITS ---
Exam(s) CT ABDOMEN PELVIS W EXAM: CT ABDOMEN PELVIS W CLINICAL HISTORY: abd pain. TECHNIQUE: Imaging Protocol: Axial computed tomography images with coronal and sagittal reformatted images were created and reviewed CONTRAST MATERIAL: Intravenous: Omnipaque 350 Contrast volume:75 ml Oral: no COMPARISON: US US ABDOMEN LIMITED from 12/15/2023 CR XR CHEST 2V PA LATERAL from 12/06/2024 FINDINGS: ABDOMEN and PELVIS: Lung Bases: No acute findings. Liver: Mildly enlarged. Mild hepatic steatosis. No suspicious mass. Gallbladder and biliary tract: Sludge is visible.. Mild wall thickening. No abnormal distention or pericholecystic fluid.. No biliary dilation. No evidence of common duct stone. Pancreas: Enlargement and stranding around the pancreas consistent with pancreatitis. No evidence of pseudocyst. No dilatation of the pancreatic duct. No evidence of mass. Spleen: Normal. Kidneys: Normal size, contour and axis. No radiodense stones. No obstructive uropathy. No suspicious masses seen. Adrenal glands: No masses seen. Vasculature: Abdominal aorta non-dilated. Soft tissues: Unremarkable. Bladder: No gross wall thickening. No calculi.No focal mass. Bowel: There are 2 small diverticula visible involving the transverse portion of the duodenum. There is mild wall thickening of the duodenum secondary to adjacent pancreatic inflammatory changes. Prominent diverticulosis of the sigmoid colon. Diverticulosis also present elsewhere in the colon to a lesser extent. No evidence of diverticulitis. No obstruction. No small bowel wall thickening. Appendix normal. Peritoneal cavity: No ascites. No focal collection. No mesenteric inflammatory response. No free air. Bones: Unremarkable for age. Reproductive organs: Unremarkable. Lymph nodes: No pathologically enlarged lymph nodes. IMPRESSION:: Findings consistent with pancreatitis. No evidence of hemorrhage or pseudocyst. Gallbladder sludge. No wall thickening. No ductal dilatation . Findings were called to Dr. Dowd of the emergency department. RADIATION DOSE DELIVERED: Total DLP DATA REPOSITORY: All CT scans at this facility are submitted to the National Radiology Data Registry (NRDR) Dose Index Registry (DIR) with the [employer] (ACR). RADIATION OPTIMIZATION: All CT scans at this facility use at least one of these dose optimization techniques: automated exposure control; mA and/or kV adjustment per patient size (includes targeted exams where dose is matched to clinical indication); or iterative reconstruction.
[2024-12-06 18:10] LABS: Absolute Eosinophil Count 1.91 10^3/uL (0.0-0.7); Absolute Lymphocyte Count 1.06 10^3/uL (1.2-3.4); Absolute Monocyte Count 0.85 10^3/uL (0.1-0.8); Absolute Neutrophil Count 17.43 10^3/uL (1.2-6.7); Diff Comment Manual Differential
[2024-12-06 18:11] LABS: RBC Morphology Normal
[2024-12-06 18:14] LABS: ALT 185 U/L (14-59); AST 25 U/L (15-37); Albumin 3.1 g/dL (3.4-5.0); Alkaline Phosphatase 149 U/L (46-116); Anion Gap 10.6 mmol/L (3-11); BUN 15 mg/dL (7-18); Bilirubin, Total 1.5 mg/dL (0.2-1.0); CO2 28.4 mmol/L (21.0-32.0); CREATININE 0.8 mg/dL (0.55-1.02); Calcium 9.1 mg/dL (8.5-10.1); Chloride 97 mmol/L (98-107); Estimated GFR 80.71 (mL/min/1.73m2); Glucose 87 mg/dL (74-106); Lipase 51 U/L (<78); Magnesium 1.8 mg/dL (1.8-2.4); NT-proBNP 741 pg/mL (<300); Potassium 3.3 mmol/L (3.5-5.1); Sodium 136 mmol/L (136-145); Total Protein 7.5 g/dL (6.4-8.2); Troponin I 5 ng/L (<or=51)
[2024-12-06] MEDS: Normal Saline - Diluent 50 ML VIAL IJ (18:30)
[2024-12-06] MEDS: Omnipaque 350 MG/ML 100 ML BTL IJ (18:30)
[2024-12-06 19:19] LABS: ESR 43 mm/hr (0-30)
[2024-12-06 19:28] LABS: LDH 238 U/L (81-234)
--- NOTE | 2024-12-06 19:30 | W.PM.HP.N ---
Date of service: 12/06/24 Time of Service: 19:30 Assessment and Plan Assessment and plan (1) Pancreatitis: Start date: 12/06/24 Status: Acute Assessment and plan: This is a 69-year-old lady who has had an acute onset of abdominal pain consistent with gallbladder pancreatitis though her lipase is normal but liver function tests are elevated and imaging does not reveal dilated ducts. There is persistent gallbladder sludge which has been there in the past. WBC is elevated but surgery did not recommend initiating antibiotics by the imaging not revealing acute infectious process. Patient will remain n.p.o. or clear fluids with surgical consultation and pain control for now. Follow-up imaging and surgical recommendations. Patient is a full code. (2) Gall bladder disease: Status: Chronic Assessment and plan: Patient appears to have some chronic gallbladder sludge and there is a question of stone formation and intermittent passage. Other chronic etiologies need to be investigated with surgical consultation to advise. (3) Cerebral palsy: Status: Chronic Assessment and plan: Patient does have right sided dysfunction in her upper and lower extremity which is chronic and causing advancing arthritis especially in the lower extremity but otherwise patient is very functional. History of Present Illness History of Present Illness Chief Complaint: Acute onset abdominal pain. Narrative: This is a 69-year-old female patient who has minimal past medical history except for cerebral palsy involving her right upper and lower extremity with some advanced degenerative disease of her joints especially in the foot and ankle on many supplements who has a history of acute onset of epigastric and right upper quadrant abdominal discomfort with bloating causing a sensation of chest pressure across her lower chest after a fatty meal 3 days prior to presentation to the ED. She had associated nausea with vomiting initially and now has poor appetite with complaint of nausea persisting. She has no complaints and she appears to be passing stool. She has been taking Pepto-Bismol. She had a similar episode within the last year with surgical evaluation and she did at that time have gallbladder sludge and mild pancreatitis. Cholecystectomy was discussed with patient does not remember that being recommended. Evaluation in the ED upon this presentation revealed inflammation of the pancreas without pseudocyst or evidence of infection and a normal lipase though liver function tests were elevated. Gallbladder did have sludge and ultrasound done after admission did reveal gallbladder sludge without evidence of cholecystitis or common bile duct dilatation. Surgery was consulted and will review the case. I do have concerns of this being an acute episode on something more chronic. Patient has not lost weight and otherwise has been feeling generally well. She is a full code. Review of Systems Narrative: 13 point review of systems otherwise unrevealing or stable. PFSH All Active Problems Gall bladder disease (Chronic) Pancreatitis (Acute) Chest pain (Acute) Arthralgia of left acromioclavicular joint (Acute) PAD (peripheral artery disease) (Acute) Nail dystrophy (Acute) Onychomycosis (Acute) Elevated LFTs (Acute) Steatosis (Acute) Hematuria (Acute) per pt report , confirmed UA .. incidental finding? (to rash) Skin rash (Acute) Chest, arms, mid-back .. papular, excoriated (Symptomatic Tx trial) Pain, ankle (Acute) Pain, foot (Acute) Diverticula of colon (Acute) severe. confined to sigmoid colon Arthritis of knee, left (Acute 01/08/15) Cerebral palsy (Chronic 12/27/07) R sided w/ ankle deformity Medical History Adenomatous colon polyp (~03/10/22) Obesity Benign neoplasm of colon (06/12/08) History of depression History of pre-eclampsia Surgical History Postoperative state Status post hysteroscopy with dilation and curettage, 12/2021. Normal colonoscopy (~02/2021) History of colonoscopy (~03/14/21) Ligation of fallopian tube 1977 section Family History Mother Stroke Father Heart disease Other Osteoporosis Social History Smoking/Tobacco Use Status: Former Tobacco Use Quit Date: 06/21/78 Smoking risk assessment performed?: Yes Alcohol Intake: current Alcohol Intake frequency: holidays/special occasions only Drug use: Occasionally Substance use type: marijuana Housing: apartment Number of Children: 2 number of grandchildren: 3 Communication Needs: Corrective Lenses Education Level: high school current occupation: [employer] at [employer] Current gender identity: female What is your relationship status?: How often do you talk on the phone with friends or family?: twice per week How often do you get together with friends or relatives?: twice per week Panel score (0-1 are the most socially isolated patients): 1 What type of physical activity do you participate in: walking Duration: 15-30 minutes/day Frequency: 5-6 times per week Seatbelt use: always Drive intox or ride w/intox cpr ambulance driver: No Working smoke detector in home: Yes Fire extinguisher in home: Yes Carbon monox detector in home: Yes Do you feel safe at home: Yes Do you feel safe in your relationship?: Yes Female Reproductive History Menstrual Age of Menarche: 14 Duration of menses: other (irregular ) Menopause type: natural History History 2 Para Hx # Term Pregnancies 2 Multiple births Hx # Pregnancies Ectopic pregnancies AB induced Hx Number of Living Children AB spontaneous Past Pregnancies Del. Date GA/Weeks # Preg Succ Route Wgt Sex Labor Lgth Anesthesia Location Prov Compl 05/23/76 37 2353.01 g Male [place] 08/25/77 40 Yes 3175.147 g Male [place], [place] Delivery Date: 05/23/76 Last Updated by: Breanna Solano pt reports had toxemia and high blood pressure Meds Allergies and Home Medications Allergies Allergy/AdvReac Type Severity Reaction Status Date / Time No Known Allergies Allergy Verified 12/06/24 17:15 Home Medications ?Medication ?Instructions ?Recorded ?Confirmed ?Type Glucos-Chond 500 Complex Cp 1 ea PO DAILY 08/14/13 12/06/[address] [facility] Wart 1 tab PO DAILY 08/14/13 12/06/24 History aspirin 81 mg tablet,delayed 81 mg PO DAILY 08/14/13 12/06/24 History release (Heike Low Dose Aspirin) multivitamin (Daily Multi-Vitamin 1 ea PO DAILY 08/14/13 12/06/24 History tablet) omega-3 fatty acids 300 mg capsule 300 mg PO DAILY 08/14/13 12/06/24 History (Fish Oil) vit A 300 mcg-C 200 mg-E 27 1 ea PO DAILY 08/14/13 12/06/24 History mg-lutein 2 mg and minerals tablet (Ocuvite with Lutein) calcium carbonate 600 mg PO DAILY 10/17/20 12/06/24 History cholecalciferol (vitamin D3) 400 units PO DAILY 10/17/20 12/06/24 History psyllium husk 3.4 gram/5.4 gram 1 tbsp PO DAILY PRN 09/16/23 12/06/24 History oral powder (Metamucil) zinc oxide 25 % topical paste 1 applic topical TID PRN 09/16/23 12/06/24 History ketoconazole 2 % topical cream 1 applic topical DAILY #120 grams 12/20/23 12/06/24 Rx meloxicam 7.5 mg tablet 7.5 mg PO DAILY PRN joint pain #90 05/23/24 12/06/24 Rx tabs ascorbate calcium-bioflavonoid 500 1 tab PO DAILY PRN 10/12/24 12/06/24 History mg-200 mg tablet (Niya-C with Bioflavonoids) Exam Narrative Exam Narrative: General: Patient appears younger than stated age, moderately obese, alert and oriented x 3 and in no acute distress. HEENT: Normocephalic, hyperpigmented lesion over left upper lip which appears chronic and benign, eyes with pupils equal and reactive to light symmetrically, extraocular movement intact and sclera anicteric. Oropharynx with moist mucosa and fair dentition. Neck: Supple without JVD. Back: Stooped posture without CVA tenderness. Lungs: Clear to auscultation percussion with no focalizing rales or rhonchi. No expiratory wheeze. Breast: Exam deferred. Heart: Regular rate and rhythm with no appreciable murmur or gallop. Abdomen: Positive Mills sign, slightly tender with guarding to deep palpation of the right upper quadrant and epigastrium with more guarding in the epigastrium. No rebound. Bowel sounds positive all quadrants. No palpable hepatosplenomegaly. Genitalia/rectal: Exam deferred. Extremities: Right upper lower extremity has some discoordination with movement and slight spasticity due to patient's CP, slight muscle atrophy over right upper and lower extremity, otherwise without clubbing, cyanosis or pitting edema. Peripheral pulses intact. Skin: Hyperpigmented lesion with homogeneous color and slight papular texture diffusely over the left upper lip otherwise normal color, warm and dry. Neuro: Cranial nerves II through XII gross intact, decreased strength of right upper and lower extremity with slight posturing and spasticity but moves well. No other focal neurological deficits. No tremor. Psych: Normal affect, normal mood, no abnormal thought processes and remote and recent memory intact. Results Imaging Imaging Studies: EXAM: CT ABDOMEN PELVIS W Date of Exam: 12/06/2024 CLINICAL HISTORY: abd pain. TECHNIQUE: Imaging Protocol: Axial computed tomography images with coronal and sagittal reformatted images were created and reviewed CONTRAST MATERIAL: Intravenous: Omnipaque 350 Contrast volume:75 ml Oral: no COMPARISON: US US ABDOMEN LIMITED from 12/15/2023 CR XR CHEST 2V PA LATERAL from 12/06/2024 FINDINGS: ABDOMEN and PELVIS: Lung Bases: No acute findings. Liver: Mildly enlarged. Mild hepatic steatosis. No suspicious mass. Gallbladder and biliary tract: Sludge is visible.. Mild wall thickening. No abnormal distention or pericholecystic fluid.. No biliary dilation. No evidence of common duct stone. Pancreas: Enlargement and stranding around the pancreas consistent with pancreatitis. No evidence of pseudocyst. No dilatation of the pancreatic duct. No evidence of mass. Spleen: Normal. Kidneys: Normal size, contour and axis. No radiodense stones. No obstructive uropathy. No suspicious masses seen. Adrenal glands: No masses seen. Vasculature: Abdominal aorta non-dilated. Soft tissues: Unremarkable. Bladder: No gross wall thickening. No calculi.No focal mass. Bowel: There are 2 small diverticula visible involving the transverse portion of the duodenum. There is mild wall thickening of the duodenum secondary to adjacent pancreatic inflammatory changes. Prominent diverticulosis of the sigmoid colon. Diverticulosis also present elsewhere in the colon to a lesser extent. No evidence of diverticulitis. No obstruction. No small bowel wall thickening. Appendix normal. Peritoneal cavity: No ascites. No focal collection. No mesenteric inflammatory response. No free air. Bones: Unremarkable for age. Reproductive organs: Unremarkable. Lymph nodes: No pathologically enlarged lymph nodes. IMPRESSION:: Findings consistent with pancreatitis. No evidence of hemorrhage or pseudocyst. Gallbladder sludge. No wall thickening. No ductal dilatation . EXAM: US ABDOMEN LIMITED Date of exam: 12/07/2024 CLINICAL HISTORY: Acute pancreatitis with GB disease TECHNIQUE: Ultrasound abdomen performed using standard protocol. COMPARISON: US US ABDOMEN LIMITED from 12/15/[address] ABDOMEN PELVIS W from 12/06/2024 FINDINGS: Examination is limited due to patient body habitus. PANCREAS: Normal where visualized. LIVER: Evaluation of the liver is limited secondary to patient body habitus. Hepatopetal flow in the Portal Vein. The liver measures in 16.3 cm length. No evidence of a hepatic mass. GALLBLADDER: No evidence of cholelithiasis. No evidence of wall thickening. No pericholecystic fluid identified. Gallbladder sludge is present. BILIARY SYSTEM: Common bile duct measures < 7 mm. No intrahepatic biliary ductal dilation. MILLS'S SIGN: Negative. RIGHT KIDNEY: Kidney is normal in size. No evidence of renal calculi. No evidence of hydronephrosis. No renal mass or cyst identified. ASCITES: None seen. IMPRESSION: 1. Examination is limited due to patient body habitus. 2. Gallbladder sludge is present. There are no stones or biliary ductal dilatation. EXAM: XR CHEST 2V PA LATERAL Date of Exam: 12/06/24 CLINICAL HISTORY: Chest pain TECHNIQUE: 2D digital imaging was performed. Two views. COMPARISON: No exams were available for comparison FINDINGS: HEART: Normal size. Aorta: Not dilated. PULMONARY VASCULATURE: Normal. MEDIASTINUM: Unremarkable. LUNGS: Clear. PLEURAL SPACE: No pleural effusion or pneumothorax. BONE:Unremarkable for age. SOFT TISSUES: Unremarkable. IMPRESSION: No acute abnormality. Labs 12/07/24 06:00 12/07/24 06:00 Labs: Laboratory Results - last 24 hr 12/06/24 12/06/24 12/06/24 17:40 18:20 20:20 WBC 21.26 H RBC 5.06 Hgb 14.4 Hct 42.7 MCV 84 MCH 28.5 MCHC 33.7 RDW 14.0 Plt Count 290 MPV 10.1 Immature Gran % 0.0 Neutrophils % 82.0 Lymphocytes % 5.0 Monocytes % 4.0 Eosinophils % 9.0 Basophils % 0.0 Nucleated RBC % 0.0 Absolute Neutrophils 17.43 H Absolute Lymphocytes 1.06 L Absolute Monocytes 0.85 H Absolute Eosinophils 1.91 H Absolute Basophils 0.00 RBC Morphology Normal ESR 43 H Sodium 136 Potassium 3.3 L Chloride 97 L Carbon Dioxide 28.4 Anion Gap 10.6 BUN 15 Creatinine 0.8 Est GFR (CKD-EPI 2020) 80.71 Glucose 87 Calcium 9.1 Magnesium 1.8 Total Bilirubin 1.5 H AST 25 ALT 185 H Alkaline Phosphatase 149 H Lactate Dehydrogenase 238 H Troponin I 5 Cancelled Cancelled C-Reactive Protein 24.10 H NT-Pro-B Natriuret Pep 741 H Total Protein 7.5 Albumin 3.1 L Lipase 51 Last Vital Signs Temp 36.8 C 12/06/24 17:09 Pulse 62 12/06/24 17:50 Resp 26 H 12/06/24 17:51 BP 160/60 H 12/06/24 17:31 Pulse Ox 94 12/06/24 17:50 PAWSS Have you Been Recently Intoxicated or Drunk Within the Last 30 days?: No Have you Ever Experienced Previous Episodes of Alcohol Withdrawal?: No Have you ever Experienced Withdrawal Seizures?: No Have you ever Experienced Delirium Tremens(DT)s?: No Have you ever undergone Alcohol Rehabilitation Treatment (i.e, inpt ot outpatient treatment programs)?: No Have you ever Experienced Blackouts?: No Have you ever Combined Alcohol with other Downers within the last 90 days?: No Have you ever Combined Alcohol with any other Substance of Abuse during the last 90 days?: No Positive Blood Alcohol level on Presentation? [PCS.BAL]: No Evidence of Increased Autonomic Activity (i.e. HR>120, tremor, sweating, agitation, nausea)?: No Result: 0 Time Spent Time spent with Patient: >75 minutes Time was spent: preparing to see the patient(eg.review tests), obtaining and/or reviewing separately otained hiistory, ordering medications,tests, procedures, referring, communicating with other health healthcare science specialist, indepentently interpreting results, counseling the patient and care coordination
[2024-12-06] MEDS: Ketorolac 15 MG/ML VIAL 10 MG IVP (19:49)
[2024-12-06] MEDS: Normal Saline 1,000 ML 75 ML IV (19:49)
[2024-12-06 19:51] LABS: Bilirubin Negative (Negative); Blood Large (Negative); Clarity Clear (Clear); Glucose Negative (Negative); Ketones 40 mg/dL (Negative); Leukocyte Esterase Negative (Negative); Nitrite Negative (Negative); Urobilinogen 0.2 mg/dL (Up to 0.2); pH 6.5 (5-8)
[2024-12-06 20:00] LABS: Bacteria Few HPF (Negative); C & S Indicated? No; Casts Negative LPF (Negative); Crystals Negative HPF (Negative); Epithelial Cells Rare HPF (Negative); Mucus Trace (Negative); RBC >50 HPF (0-2); WBC 0-2 HPF (0-5)
--- NOTE | 2024-12-06 20:36 | W.ED.GENAD ---
Discharge Plan Disposition Patient Disposition: Admit to [facility] Condition: Stable Discharge Details Clinical Impression: Pancreatitis Primary Care Provider: Callie Lugo ED Provider: Juhi Dowd Home Meds and New Rx's Prescriptions: No Action meloxicam 7.5 mg tablet 7.5 mg PO DAILY PRN (Reason: joint pain) Qty: 90 3RF Metamucil 3.4 gram/5.4 gram powder 1 tbsp PO DAILY PRN Rx Instructions: mix into at least 8 oz of water or juice before administering zinc oxide 25 % paste 1 applic topical TID PRN Rx Instructions: Trial to chest area, arms for rash [as best dispensed or OTC if not covered] cholecalciferol (vitamin D3) 400 units PO DAILY calcium carbonate 600 mg PO DAILY ketoconazole 2 % cream 1 applic topical DAILY Qty: 120 6RF Rx Instructions: Apply to toenails once daily multivitamin [Daily Multi-Vitamin] 1 EACH tablet 1 ea PO DAILY aspirin [Heike Low Dose Aspirin] 81 MG tablet,delayed release (DR/EC) 81 mg PO DAILY Ocuvite with Lutein 1 EACH tablet 1 ea PO DAILY Fish Oil 300 MG capsule 300 mg PO DAILY GLUCOS-CHOND 500 COMPLEX CP 1 EACH capsule [address] muñiz wart 1 tab PO DAILY Niya-C with Bioflavonoids 500-200 mg tablet 1 tab PO DAILY PRN HPI General Date/Time Provider Initiated Documentation: 12/06/24 17:19. Limitations to Documentation: no limitations. Information obtained by: patient and old records reviewed. HPI Narrative: 69-year-old female without significant past medical history presents for evaluation of epigastric abdominal pain and chest pain. She reports that the symptoms started 3 days ago. She reports that initially she had vomiting in addition to her nausea. Reports that she has had persistent nausea and poor oral intake. She states that she tried some Pepto-Bismol but this did not help. She states that the pain is localized to the upper part of her abdomen and Radiates across her chest. It is not associated with any shortness of breath. She states that she feels very bloated. Related Data Home Medications ?Medication ?Instructions ?Recorded ?Confirmed Glucos-Chond 500 Complex Cp 1 ea PO DAILY 08/14/13 12/06/24 St Muñiz Wart 1 tab PO DAILY 08/14/13 12/06/24 aspirin 81 mg tablet,delayed 81 mg PO DAILY 08/14/13 12/06/24 release (Heike Low Dose Aspirin) multivitamin (Daily Multi-Vitamin 1 ea PO DAILY 08/14/13 12/06/24 tablet) omega-3 fatty acids 300 mg capsule 300 mg PO DAILY 08/14/13 12/06/24 (Fish Oil) vit A 300 mcg-C 200 mg-E 27 1 ea PO DAILY 08/14/13 12/06/24 mg-lutein 2 mg and minerals tablet (Ocuvite with Lutein) calcium carbonate 600 mg PO DAILY 10/17/20 12/06/24 cholecalciferol (vitamin D3) 400 units PO DAILY 10/17/20 12/06/24 psyllium husk 3.4 gram/5.4 gram 1 tbsp PO DAILY PRN 09/16/23 12/06/24 oral powder (Metamucil) zinc oxide 25 % topical paste 1 applic topical TID PRN 09/16/23 12/06/24 ketoconazole 2 % topical cream 1 applic topical DAILY #120 grams 12/20/23 12/06/24 meloxicam 7.5 mg tablet 7.5 mg PO DAILY PRN joint pain #90 05/23/24 12/06/24 tabs ascorbate calcium-bioflavonoid 500 1 tab PO DAILY PRN 10/12/24 12/06/24 mg-200 mg tablet (Niya-C with Bioflavonoids) Previous Rx's ?Medication ?Instructions ?Recorded ketoconazole 2 % topical cream 1 applic topical DAILY #120 grams 12/20/23 meloxicam 7.5 mg tablet 7.5 mg PO DAILY PRN joint pain #90 05/23/24 tabs Allergies Allergy/AdvReac Type Severity Reaction Status Date / Time No Known Allergies Allergy Verified 12/06/24 17:15 General Stated Complaint: Chest Pain JERONIMO: 3 Exam Narrative Exam Narrative: Review of Systems: All systems reviewed & are unremarkable except as noted in HPI and below Well-developed, no acute distress NCAT PERRL, normal conjunctiva Tongue is black (discoloration from Pepto ) RRR, no murmur Unlabored respiratory effort, CTAB Nondistended abdomen , soft, epigastric tenderness, no guarding or rebound, no RUQ tenderness. Extremities w/o edema no focal neurologic deficits Appropriate mood and affect Course Vital Signs Vital signs: Vital Signs Temperature 36.8 C 12/06/24 17:09 Pulse 72 12/06/24 17:09 Respiratory Rate 15 12/06/24 17:09 Blood Pressure 154/81 H 12/06/24 17:09 Pulse Oximetry 94 12/06/24 17:09 Temperature 36.8 C 12/06/24 17:09 Pulse 62 12/06/24 17:50 Pulse 62 12/06/24 17:50 Respiratory Rate 26 H 12/06/24 17:51 Respiratory Effort Short of Breath 12/06/24 17:51 Respiratory Depth Shallow 12/06/24 17:51 Respiratory Pattern Tachypnea 12/06/24 17:51 Blood Pressure 160/60 H 12/06/24 17:31 Blood Pressure Mean 97 12/06/24 17:31 Blood Pressure Position Sitting 12/06/24 17:09 Pulse Oximetry 94 12/06/24 17:50 Oxygen Delivery Method Room Air 12/06/24 17:09 Oxygen Flow Rate 0 12/06/24 17:09 Lab/Test Results Lab/Test Results: Laboratory Tests Range/Units 12/06/24 12/06/24 12/06/24 17:40 18:20 19:45 WBC (4.4-10.8) 10^3/uL 21.26 H RBC (3.93-5.22) 10^6/uL 5.06 Hgb (11.2-15.7) g/dL 14.4 Hct (36.0-46.0) % 42.7 MCV (80-95) fL 84 MCH (27.0-33.0) pg 28.5 MCHC (32.0-36.0) % 33.7 RDW (11.7-14.6) % 14.0 Plt Count (130-400) 10^3/uL 290 MPV (8.0-11.0) fL 10.1 Immature Gran % % 0.0 Neutrophils % % 82.0 Lymphocytes % % 5.0 Monocytes % % 4.0 Eosinophils % % 9.0 Basophils % % 0.0 Nucleated RBC % (0.0-0.3) % 0.0 Absolute Neutrophils (1.2-6.7) 10^3/uL 17.43 H Absolute Lymphocytes (1.2-3.4) 10^3/uL 1.06 L Absolute Monocytes (0.1-0.8) 10^3/uL 0.85 H Absolute Eosinophils (0.0-0.7) 10^3/uL 1.91 H Absolute Basophils (0.0-0.2) 10^3/uL 0.00 RBC Morphology Normal ESR (0-30) mm/hr 43 H Sodium (136-145) mmol/L 136 Potassium (3.5-5.1) mmol/L 3.3 L Chloride (98-107) mmol/L 97 L Carbon Dioxide (21.0-32.0) mmol/L 28.4 Anion Gap (3-11) mmol/L 10.6 BUN (7-18) mg/dL 15 Creatinine (0.55-1.02) mg/dL 0.8 Est GFR (CKD-EPI 2020) (mL/min/1.73m2) 80.71 Glucose (74-106) mg/dL 87 Calcium (8.5-10.1) mg/dL 9.1 Magnesium (1.8-2.4) mg/dL 1.8 Total Bilirubin (0.2-1.0) mg/dL 1.5 H AST (15-37) U/L 25 ALT (14-59) U/L 185 H Alkaline Phosphatase (46-116) U/L 149 H Lactate Dehydrogenase (81-234) U/L 238 H Troponin I (<or=51) ng/L 5 Cancelled C-Reactive Protein (<or=0.5) mg/dL 24.10 H NT-Pro-B Natriuret Pep (<300) pg/mL 741 H Total Protein (6.4-8.2) g/dL 7.5 Albumin (3.4-5.0) g/dL 3.1 L Lipase (<78) U/L 51 Urine Color (Yellow) Yellow Urine Clarity (Clear) Clear Urine pH (5-8) 6.5 Ur Specific [place] (1.005-1.025) 1.010 Urine Protein (Neg-Trace) mg/dL 30 H Urine Ketones (Negative) mg/dL 40 H Urine Blood (Negative) Large H Urine Nitrite (Negative) Negative Urine Bilirubin (Negative) Negative Urine Urobilinogen (Up to 0.2) mg/dL 0.2 Ur Leukocyte Esterase (Negative) Negative Urine RBC (0-2) HPF >50 H Urine WBC (0-5) HPF 0-2 Ur Epithelial Cells (Negative) HPF Rare Urine Crystals (Negative) HPF Negative Urine Bacteria (Negative) HPF Few Urine Casts (Negative) LPF Negative Urine Mucus (Negative) Trace Ur Culture Indicated? No Urine Glucose (Negative) mg/dL Negative Range/Units 12/06/24 20:20 WBC (4.4-10.8) 10^3/uL RBC (3.93-5.22) 10^6/uL Hgb (11.2-15.7) g/dL Hct (36.0-46.0) % MCV (80-95) fL MCH (27.0-33.0) pg MCHC (32.0-36.0) % RDW (11.7-14.6) % Plt Count (130-400) 10^3/uL MPV (8.0-11.0) fL Immature Gran % % Neutrophils % % Lymphocytes % % Monocytes % % Eosinophils % % Basophils % % Nucleated RBC % (0.0-0.3) % Absolute Neutrophils (1.2-6.7) 10^3/uL Absolute Lymphocytes (1.2-3.4) 10^3/uL Absolute Monocytes (0.1-0.8) 10^3/uL Absolute Eosinophils (0.0-0.7) 10^3/uL Absolute Basophils (0.0-0.2) 10^3/uL RBC Morphology ESR (0-30) mm/hr Sodium (136-145) mmol/L Potassium (3.5-5.1) mmol/L Chloride (98-107) mmol/L Carbon Dioxide (21.0-32.0) mmol/L Anion Gap (3-11) mmol/L BUN (7-18) mg/dL Creatinine (0.55-1.02) mg/dL Est GFR (CKD-EPI 2020) (mL/min/1.73m2) Glucose (74-106) mg/dL Calcium (8.5-10.1) mg/dL Magnesium (1.8-2.4) mg/dL Total Bilirubin (0.2-1.0) mg/dL AST (15-37) U/L ALT (14-59) U/L Alkaline Phosphatase (46-116) U/L Lactate Dehydrogenase (81-234) U/L Troponin I (<or=51) ng/L Cancelled C-Reactive Protein (<or=0.5) mg/dL NT-Pro-B Natriuret Pep (<300) pg/mL Total Protein (6.4-8.2) g/dL Albumin (3.4-5.0) g/dL Lipase (<78) U/L Urine Color (Yellow) Urine Clarity (Clear) Urine pH (5-8) Ur Specific [place] (1.005-1.025) Urine Protein (Neg-Trace) mg/dL Urine Ketones (Negative) mg/dL Urine Blood (Negative) Urine Nitrite (Negative) Urine Bilirubin (Negative) Urine Urobilinogen (Up to 0.2) mg/dL Ur Leukocyte Esterase (Negative) Urine RBC (0-2) HPF Urine WBC (0-5) HPF Ur Epithelial Cells (Negative) HPF Urine Crystals (Negative) HPF Urine Bacteria (Negative) HPF Urine Casts (Negative) LPF Urine Mucus (Negative) Ur Culture Indicated? Urine Glucose (Negative) mg/dL Medical Decision Making Emergent evaluation of epigastric abdominal pain. Initial differential includes pancreatitis, gastroenteritis, low suspicion for ACS. Patient does not have risk factors like hypertension, smoking or diabetes. EKG reviewed and independently interpreted: Sinus 69 left side of STEMI. She is hemodynamically stable and afebrile. Lab work was obtained and noted to have a significant leukocytosis without anemia. There is profound left shift. Inflammatory markers ESR and CRP are elevated. Mild hypokalemia at 3.3. Renal function is normal. She has some mild derangement in her LFTs but not significant. Total bili is only slightly above normal range at 1.5. I do not suspect an acute hepatitis or obstructing gallbladder pathology. When her white blood cell count resulted at 21, she was sent for CT imaging of her abdomen. This revealed per the radiologist, signs of inflammation of the pancreas without any signs of cysts, pseudocyst or abscess. Gallbladder has sludge without signs of acute cholecystitis. Her lipase of note is not elevated and is only 51. This could be lagging, but clinically the diagnosis of pancreatitis seems to fit. She has been resuscitated with IV fluids and antiemetics. Discussed with general surgeon who does recommend right upper quadrant ultrasound in the morning to further evaluate the gallbladder. Based on medical record review, she does have a history of an abnormal appearing gallbladder with a likely mass in the gallbladder, but no history of stones. He does not recommend antibiotics at this time. Recommends fluids and pain control as needed. He will see the patient in the morning. I discussed with the hospitalist to admit the patient to their service for further management. PFSH All Active Problems (Updated 12/06/24 @ 20:11 by Juhi Dowd MD) Gall bladder disease (Chronic) Pancreatitis (Acute) Chest pain (Acute) Arthralgia of left acromioclavicular joint (Acute) PAD (peripheral artery disease) (Acute) Nail dystrophy (Acute) Onychomycosis (Acute) Elevated LFTs (Acute) Steatosis (Acute) Hematuria (Acute) per pt report , confirmed UA .. incidental finding? (to rash) Skin rash (Acute) Chest, arms, mid-back .. papular, excoriated (Symptomatic Tx trial) Pain, ankle (Acute) Pain, foot (Acute) Diverticula of colon (Acute) severe. confined to sigmoid colon Arthritis of knee, left (Acute 01/08/15) Cerebral palsy (Chronic 12/27/07) R sided w/ ankle deformity Medical History Adenomatous colon polyp (~03/10/22) Obesity Benign neoplasm of colon (06/12/08) History of depression History of pre-eclampsia Surgical History Postoperative state Status post hysteroscopy with dilation and curettage, 12/2021. Normal colonoscopy (~02/2021) History of colonoscopy (~03/14/21) Ligation of fallopian tube 1977 section Family History Mother Stroke Father Heart disease Other Osteoporosis Social History Smoking/Tobacco Use Status: Former Tobacco Use Quit Date: 06/21/78 Smoking risk assessment performed?: Yes Alcohol Intake: current Alcohol Intake frequency: holidays/special occasions only Drug use: Occasionally Substance use type: marijuana Housing: apartment Number of Children: 2 number of grandchildren: 3 Communication Needs: Corrective Lenses Education Level: high school current occupation: [employer] Current gender identity: female What is your relationship status?: How often do you talk on the phone with friends or family?: twice per week How often do you get together with friends or relatives?: twice per week Panel score (0-1 are the most socially isolated patients): 1 What type of physical activity do you participate in: walking Duration: 15-30 minutes/day Frequency: 5-6 times per week Seatbelt use: always Drive intox or ride w/intox car pick up driver: No Working smoke detector in home: Yes Fire extinguisher in home: Yes Carbon monox detector in home: Yes Do you feel safe at home: Yes Do you feel safe in your relationship?: Yes Female Reproductive History Menstrual Age of Menarche: 14 Duration of menses: other (irregular ) Menopause type: natural History History 2 Para Hx # Term Pregnancies 2 Multiple births Hx # Pregnancies Ectopic pregnancies AB induced Hx Number of Living Children AB spontaneous Past Pregnancies Del. Date GA/Weeks # Preg Succ Route Wgt Sex Labor Lgth Anesthesia Location Prov Complic 05/23/76 37 2353.01 g Male [place], [place] 08/25/77 40 Yes 3175.147 g Male [place], [place] Delivery Date: 05/23/76 Last Updated by: Breanna Solano pt reports had toxemia and high blood pressure PAWSS Have you Been Recently Intoxicated or Drunk Within the Last 30 days?: No Have you Ever Experienced Previous Episodes of Alcohol Withdrawal?: No Have you ever Experienced Withdrawal Seizures?: No Have you ever Experienced Delirium Tremens(DT)s?: No Have you ever undergone Alcohol Rehabilitation Treatment (i.e, inpt ot outpatient treatment programs)?: No Have you ever Experienced Blackouts?: No Have you ever Combined Alcohol with other Downers within the last 90 days?: No Have you ever Combined Alcohol with any other Substance of Abuse during the last 90 days?: No Positive Blood Alcohol level on Presentation? [PCS.BAL]: No Evidence of Increased Autonomic Activity (i.e. HR>120, tremor, sweating, agitation, nausea)?: No Result: 0
[2024-12-06] MEDS: Heparin 5,000 UNITS/ML VIAL 5000 UNITS SC (22:13)
--- NOTE | 2024-12-06 22:13 | W.PC.ACHO ---
Registration Status: ADM IN Primary Language: Preferred Language: Tajik ED Information & Data Chief Complaint Chest Pain 12/06/24 20:38 Other Complaint Abd Prob 12/06/24 17:09 Triage Note Back pain, chest pain, 12/06/24 17:09 bloating, nausea (vomited once), insomnia, starting wednesday (12/03) morning. No apparent trigger. 9 of 10 aching pain across the chest with no apparent provocation or palliation. Medical / Surgical History (Last Reviewed 12/06/24 @ 19:31 by Micah Frye) Adenomatous colon polyp (~03/10/22) Obesity Benign neoplasm of colon (06/12/08) History of depression History of pre-eclampsia (Last Reviewed 12/06/24 @ 19:31 by Micah Frye) Postoperative state Normal colonoscopy (~02/2021) History of colonoscopy (~03/14/21) Ligation of fallopian tube section Most Recent Vital Signs Temperature 37 C 12/06/24 21:27 Pulse 68 12/06/24 21:27 Pulse Rhythm Regular 12/06/24 21:27 Pulse 62 12/06/24 17:50 Respiratory Rate 18 12/06/24 21:27 Respiratory Effort Normal, Non-Labored 12/06/24 21:27 Respiratory Depth Normal 12/06/24 21:27 Respiratory Pattern Normal 12/06/24 21:27 Blood Pressure 148/82 H 12/06/24 21:27 Blood Pressure Mean 97 12/06/24 17:31 Blood Pressure Position Sitting 12/06/24 17:09 Pulse Oximetry 96 12/06/24 21:27 Oxygen Delivery Method Room Air 12/06/24 21:27 Oxygen Flow Rate 0 12/06/24 21:27 Allergies No Known Allergies Allergy (Verified 12/06/24 17:15) Active Medications Generic Name Dose Route Start Last Admin Trade Name Freq PRN Reason Stop Dose Admin Sodium Chloride 1,000 mls @ 75 mls/hr 12/06/24 19:30 12/06/24 19:49 Saline 1000ml Bag IV 75 mls/hr INFUSION RICARDO Administration IV IV Catheter Type [Right Peripheral IV Antecubital] IV Catheter Gauge [Right 20 Antecubital] Diet Orders Category Date Time Status Regular/Normal [DIET] Nutrition 12/07/24 Breakfast Ordered Diagnostics 12/06/24 12/06/24 12/06/24 Range/Units 21:36 21:26 20:20 WBC (4.4-10.8) 10^3/uL RBC (3.93-5.22) 10^6/uL Hgb (11.2-15.7) g/dL Hct (36.0-46.0) % MCV (80-95) fL MCH (27.0-33.0) pg MCHC (32.0-36.0) % RDW (11.7-14.6) % Plt Count (130-400) 10^3/uL MPV (8.0-11.0) fL Immature Gran % % Neutrophils % % Lymphocytes % % Monocytes % % Eosinophils % % Basophils % % Nucleated RBC % (0.0-0.3) % Absolute Neutrophils (1.2-6.7) 10^3/uL Absolute Lymphocytes (1.2-3.4) 10^3/uL Absolute Monocytes (0.1-0.8) 10^3/uL Absolute Eosinophils (0.0-0.7) 10^3/uL Absolute Basophils (0.0-0.2) 10^3/uL RBC Morphology ESR (0-30) mm/hr PT Pending INR Pending Sodium (136-145) mmol/L Potassium (3.5-5.1) mmol/L Chloride (98-107) mmol/L Carbon Dioxide (21.0-32.0) mmol/L Anion Gap (3-11) mmol/L BUN (7-18) mg/dL Creatinine (0.55-1.02) mg/dL Est GFR (CKD-EPI 2020) (mL/min/1.73m2) Glucose (74-106) mg/dL Calcium (8.5-10.1) mg/dL Magnesium (1.8-2.4) mg/dL Total Bilirubin (0.2-1.0) mg/dL AST (15-37) U/L ALT (14-59) U/L Alkaline Phosphatase (46-116) U/L Lactate Dehydrogenase (81-234) U/L Troponin I Cancelled (<or=51) ng/L C-Reactive Protein (<or=0.5) mg/dL NT-Pro-B Natriuret Pep (<300) pg/mL Total Protein (6.4-8.2) g/dL Albumin (3.4-5.0) g/dL Lipase (<78) U/L TSH Pending Urine Color Pending (Yellow) Urine Clarity Pending (Clear) Urine pH Pending (5-8) Ur Specific [place] Pending (1.005-1.025) Urine Protein Pending (Neg-Trace) mg/dL Urine Ketones Pending (Negative) mg/dL Urine Blood Pending (Negative) Urine Nitrite Pending (Negative) Urine Bilirubin Pending (Negative) Urine Urobilinogen Pending (Up to 0.2) mg/dL Ur Leukocyte Esterase Pending (Negative) Urine RBC (0-2) HPF Urine WBC (0-5) HPF Ur Epithelial Cells (Negative) HPF Urine Crystals (Negative) HPF Urine Bacteria (Negative) HPF Urine Casts (Negative) LPF Urine Mucus (Negative) Ur Culture Indicated? Urine Glucose Pending (Negative) mg/dL COVID-19 Source SARS-CoV-2 (PCR) Influenza Type A (PCR) Influenza Type B (PCR) RSV (PCR) 12/06/24 12/06/24 12/06/24 Range/Units 19:45 19:44 18:20 WBC (4.4-10.8) 10^3/uL RBC (3.93-5.22) 10^6/uL Hgb (11.2-15.7) g/dL Hct (36.0-46.0) % MCV (80-95) fL MCH (27.0-33.0) pg MCHC (32.0-36.0) % RDW (11.7-14.6) % Plt Count (130-400) 10^3/uL MPV (8.0-11.0) fL Immature Gran % % Neutrophils % % Lymphocytes % % Monocytes % % Eosinophils % % Basophils % % Nucleated RBC % (0.0-0.3) % Absolute Neutrophils (1.2-6.7) 10^3/uL Absolute Lymphocytes (1.2-3.4) 10^3/uL Absolute Monocytes (0.1-0.8) 10^3/uL Absolute Eosinophils (0.0-0.7) 10^3/uL Absolute Basophils (0.0-0.2) 10^3/uL RBC Morphology ESR (0-30) mm/hr PT INR Sodium (136-145) mmol/L Potassium (3.5-5.1) mmol/L Chloride (98-107) mmol/L Carbon Dioxide (21.0-32.0) mmol/L Anion Gap (3-11) mmol/L BUN (7-18) mg/dL Creatinine (0.55-1.02) mg/dL Est GFR (CKD-EPI 2020) (mL/min/1.73m2) Glucose (74-106) mg/dL Calcium (8.5-10.1) mg/dL Magnesium (1.8-2.4) mg/dL Total Bilirubin (0.2-1.0) mg/dL AST (15-37) U/L ALT (14-59) U/L Alkaline Phosphatase (46-116) U/L Lactate Dehydrogenase (81-234) U/L Troponin I Cancelled (<or=51) ng/L C-Reactive Protein (<or=0.5) mg/dL NT-Pro-B Natriuret Pep (<300) pg/mL Total Protein (6.4-8.2) g/dL Albumin (3.4-5.0) g/dL Lipase (<78) U/L TSH Urine Color Yellow (Yellow) Urine Clarity Clear (Clear) Urine pH 6.5 (5-8) Ur Specific [place] 1.010 (1.005-1.025) Urine Protein 30 H (Neg-Trace) mg/dL Urine Ketones 40 H (Negative) mg/dL Urine Blood Large H (Negative) Urine Nitrite Negative (Negative) Urine Bilirubin Negative (Negative) Urine Urobilinogen 0.2 (Up to 0.2) mg/dL Ur Leukocyte Esterase Negative (Negative) Urine RBC >50 H (0-2) HPF Urine WBC 0-2 (0-5) HPF Ur Epithelial Cells Rare (Negative) HPF Urine Crystals Negative (Negative) HPF Urine Bacteria Few (Negative) HPF Urine Casts Negative (Negative) LPF Urine Mucus Trace (Negative) Ur Culture Indicated? No Urine Glucose Negative (Negative) mg/dL COVID-19 Source Pending SARS-CoV-2 (PCR) Pending Influenza Type A (PCR) Pending Influenza Type B (PCR) Pending RSV (PCR) Pending 12/06/24 Range/Units 17:40 WBC 21.26 H (4.4-10.8) 10^3/uL RBC 5.06 (3.93-5.22) 10^6/uL Hgb 14.4 (11.2-15.7) g/dL Hct 42.7 (36.0-46.0) % MCV 84 (80-95) fL MCH 28.5 (27.0-33.0) pg MCHC 33.7 (32.0-36.0) % RDW 14.0 (11.7-14.6) % Plt Count 290 (130-400) 10^3/uL MPV 10.1 (8.0-11.0) fL Immature Gran % 0.0 % Neutrophils % 82.0 % Lymphocytes % 5.0 % Monocytes % 4.0 % Eosinophils % 9.0 % Basophils % 0.0 % Nucleated RBC % 0.0 (0.0-0.3) % Absolute Neutrophils 17.43 H (1.2-6.7) 10^3/uL Absolute Lymphocytes 1.06 L (1.2-3.4) 10^3/uL Absolute Monocytes 0.85 H (0.1-0.8) 10^3/uL Absolute Eosinophils 1.91 H (0.0-0.7) 10^3/uL Absolute Basophils 0.00 (0.0-0.2) 10^3/uL RBC Morphology Normal ESR 43 H (0-30) mm/hr PT INR Sodium 136 (136-145) mmol/L Potassium 3.3 L (3.5-5.1) mmol/L Chloride 97 L (98-107) mmol/L Carbon Dioxide 28.4 (21.0-32.0) mmol/L Anion Gap 10.6 (3-11) mmol/L BUN 15 (7-18) mg/dL Creatinine 0.8 (0.55-1.02) mg/dL Est GFR (CKD-EPI 2020) 80.71 (mL/min/1.73m2) Glucose 87 (74-106) mg/dL Calcium 9.1 (8.5-10.1) mg/dL Magnesium 1.8 (1.8-2.4) mg/dL Total Bilirubin 1.5 H (0.2-1.0) mg/dL AST 25 (15-37) U/L ALT 185 H (14-59) U/L Alkaline Phosphatase 149 H (46-116) U/L Lactate Dehydrogenase 238 H (81-234) U/L Troponin I 5 (<or=51) ng/L C-Reactive Protein 24.10 H (<or=0.5) mg/dL NT-Pro-B Natriuret Pep 741 H (<300) pg/mL Total Protein 7.5 (6.4-8.2) g/dL Albumin 3.1 L (3.4-5.0) g/dL Lipase 51 (<78) U/L TSH Urine Color (Yellow) Urine Clarity (Clear) Urine pH (5-8) Ur Specific [place] (1.005-1.025) Urine Protein (Neg-Trace) mg/dL Urine Ketones (Negative) mg/dL Urine Blood (Negative) Urine Nitrite (Negative) Urine Bilirubin (Negative) Urine Urobilinogen (Up to 0.2) mg/dL Ur Leukocyte Esterase (Negative) Urine RBC (0-2) HPF Urine WBC (0-5) HPF Ur Epithelial Cells (Negative) HPF Urine Crystals (Negative) HPF Urine Bacteria (Negative) HPF Urine Casts (Negative) LPF Urine Mucus (Negative) Ur Culture Indicated? Urine Glucose (Negative) mg/dL COVID-19 Source SARS-CoV-2 (PCR) Influenza Type A (PCR) Influenza Type B (PCR) RSV (PCR) Intake and Output - 24 Hour Total 12/06/24 17:06 thru 12/06/24 21:27 Intake Total 1010 Balance 1010 Weight 78.109 kg Intake: IV 1010 Falls Risk Assessment History of Falls No History 12/06/24 17:14 Contributing Factors Medications 12/06/24 21:27 Ambulatory Aids Independent 12/06/24 17:14 Tubes/Lines With any additional score 12/06/24 21:27 Gait Evaluation No gait disturbance 12/06/24 21:27 Cognition No cognitive impairment 12/06/24 21:27 Fall Total Score 23 12/06/24 21:27 Level of Risk Standard/Low Risk 12/06/24 21:27 Problems (Last Reviewed 12/06/24 @ 19:31 by Micah Frye) Gall bladder disease (Chronic) Pancreatitis (Acute) Cerebral palsy (Chronic 12/27/07) v v v v v v v v v Sending and/or Receiving Nurses: Please use comment section below to note any information pertinent to the patient hand-off not included above. Information / Comments: has had back and chest pain with bloating over a few days. The last 24 hours increased chest pressure which evolved into chest pain. negative cardiac workup. Looking like acute pancreatitis. Surgical consult in, scan looks like an abnormal gallbladder, potentially a mass. Here overnight for fluids and pain control. Will have a surgical eval in the morning. LFTs elevated. ambulates well. Got toradol, zofran, aspirin, and a liter of NS. NS ordered for 75mls/hr. 18g RAC. Report received from: GEORGINA Lama. called @ [id number]
[2024-12-06] MEDS: MORPHine 4 MG/ML SYR IVP (22:14)
[2024-12-06] MEDS: Normal Saline Flush 10 ML SYR IVP (22:14)
[2024-12-07] MEDS: Normal Saline 1,000 ML 75 ML IV ×2 (00:08→20:46)
[2024-12-07 01:00] LABS: COVID-19 PCR Negative (Negative); Influenza A PCR Negative (Negative); Influenza B PCR Negative (Negative); RSV PCR Negative (Negative)
[2024-12-07 01:11] LABS: Source Nasopharynx
[2024-12-07 03:00] VITALS: BP 134/61; PULSE 68; RESP 18; TEMP 37.2; O2SAT 95
[2024-12-07] MEDS: MORPHine 4 MG/ML SYR IVP ×2 (03:11→09:15)
[2024-12-07] MEDS: Heparin 5,000 UNITS/ML VIAL 5000 UNITS SC (06:15)
[2024-12-07 06:29] LABS: HCT 37.3 % (36.0-46.0); HGB 12.7 g/dL (11.2-15.7); MCH 29.2 pg (27.0-33.0); MCV 86 fL (80-95); MPV 10.1 fL (8.0-11.0); Platelet Count 266 10^3/uL (130-400); RBC 4.35 10^6/uL (3.93-5.22); RDW 14.3 % (11.7-14.6); RDW-SD 45.2 fL; WBC 15.48 10^3/uL (4.4-10.8)
[2024-12-07 06:43] LABS: INR 1.1 (0.9-1.1); Prothrombin Time 10.9 sec (9.1-11.1)
[2024-12-07 07:14] LABS: ALT 122 U/L (14-59); AST 18 U/L (15-37); Albumin 2.4 g/dL (3.4-5.0); Alkaline Phosphatase 122 U/L (46-116); Anion Gap 5.4 mmol/L (3-11); BUN 13 mg/dL (7-18); Bilirubin, Total 1.1 mg/dL (0.2-1.0); CO2 28.6 mmol/L (21.0-32.0); CREATININE 0.7 mg/dL (0.55-1.02); Calcium 8.4 mg/dL (8.5-10.1); Chloride 102 mmol/L (98-107); Estimated GFR 94.73 (mL/min/1.73m2); Glucose 65 mg/dL (74-106); Magnesium 1.9 mg/dL (1.8-2.4); Potassium 3.4 mmol/L (3.5-5.1); Sodium 136 mmol/L (136-145); Total Protein 6.2 g/dL (6.4-8.2)
[2024-12-07 07:16] VITALS: BP 131/62; PULSE 67; RESP 16; TEMP 36.5; O2SAT 93
--- NOTE | 2024-12-07 08:00 | DI.US_ITS ---
Exam(s) US ABDOMEN LIMITED EXAM: US ABDOMEN LIMITED CLINICAL HISTORY: Acute pancreatitis with GB disease TECHNIQUE: Ultrasound abdomen performed using standard protocol. COMPARISON: US US ABDOMEN LIMITED from 12/15/[address] ABDOMEN PELVIS W from 12/06/2024 FINDINGS: Examination is limited due to patient body habitus. PANCREAS: Normal where visualized. LIVER: Evaluation of the liver is limited secondary to patient body habitus. Hepatopetal flow in the Portal Vein. The liver measures in 16.3 cm length. No evidence of a hepatic mass. GALLBLADDER: No evidence of cholelithiasis. No evidence of wall thickening. No pericholecystic fluid identified. Gallbladder sludge is present. BILIARY SYSTEM: Common bile duct measures < 7 mm. No intrahepatic biliary ductal dilation. MONTGOMERY'S SIGN: Negative. RIGHT KIDNEY: Kidney is normal in size. No evidence of renal calculi. No evidence of hydronephrosis. No renal mass or cyst identified. ASCITES: None seen. IMPRESSION: 1. Examination is limited due to patient body habitus. 2. Gallbladder sludge is present. There are no stones or biliary ductal dilatation. DATA REPOSITORY:
--- NOTE | 2024-12-07 08:29 | INITIAL_ITS ---
Date of service: 12/07/24 Time of Service: 08:29 Care Management Initial Assmt Initial Assessment Reason for Hospitalization: Acute Pancreatitis Functional Status/Living Situation Patient Presentation: Marilyn Brown was sitting up in her bed, when CM arrived. She presented to the ED for symptom evaluation of vomiting, nausea, and poor oral intake. She is currently living in [facility] in their families duplex home. Stephanie states she has 2-3 stairs upon entrance that are not an issue. Stephanie has 2 children, one in [place], and one in [place], [place]. Stephanie is independant at baseline. Stephanie wishes to speak to someone related to her diet, CM requested a nutrition consult. CM will continue to follow. Town of Residence: [facility] Resides with: Spouse (Boyfriend ) Significant Other/Family: Out of area Natural Supports: partner Employment Status: Employed Instrumental Activities of Daily Living (ADLs): Independent Medications Medication Management: No Issues/Barriers identified Advance Directives Advance Directives: Do you have an Advance Directive: Y , 13:12 AD On File at [facility]: N 08/14/13, 15:44 Date Asked 12/06/24 12/06/24, 21:17 AD Date Reviewed COLST On File at [facility] COLST Date Scanned Code Status Resuscitation Status Full Code Portal Pt does not currently have a portal and education provided: Yes Insurance Coverage/Financial Issues Insurance: [employer] Medicare Replacement - [id number] FINANCIAL ASST 100 - 12/18/25 Care Team Visit Care Team Role Provider Type Callie Lugo NP Primary Care Provider NURSE PRACTITIONER Juhi Dowd MD Emergency Provider [facility] STAFF PHYSICIAN Micah Frye Admit Provider NON-[facility] STAFF PHYSICIAN Attending Provider Other Providers Discharge Potential Discharge Needs: Consult Consult Services Needed: Nutrition and PCP F/U Appt Anticipated Barriers to Discharge: Medical Status Patient/Family Education Needs: Review discharge instructions, discuss Ask Me Three Transportation: Private vehicle Plan: Anticipate, Stephanie will be discharged home, once medically ready. She will follow up with her community providers and continue per her discharge plan of care. Stephanie will likely transport via private vehicle. CM will continue to follow. Social Determinants of Health Screening Social Determinants of health last assessed in clinic: 12/07/24 Will the Patient Participate in the Screening?: Yes Do you worry about having a steady place to live?: no Problems where you live: no known problems In the past 12 months, have you had to go without electric, gas, oil or water in your home?: no 1. Within the past 12 months, we worried whether our food would run out before we got money to buy more.: Never true 2. Within the past 12 months, the food we bought just didn't last and we didn't have money to get more.: Never true Has lack of transportation kept you from medical appointments or from doing things needed for daily living?: no Has anyone in your life made you feel unsafe or unsupported?: no How hard is it for you to pay for the very basics like food, housing, medical care, and heating? Would you say it is:: Not hard at all Do you want help finding or keeping work or a job?: I do not need or want help If for any reason you need help with day-to-day activities such as bathing, preparing meals, shopping, managing finances, etc., do you get the help you need?: I don?t need any help How often do you feel lonely or isolated from those around you?: Never Do you speak a language other than Guinean at home?: No Does the patient want assistance with any of the above?: No PFSH All Active Problems Gall bladder disease (Chronic) Pancreatitis (Acute) Chest pain (Acute) Arthralgia of left acromioclavicular joint (Acute) PAD (peripheral artery disease) (Acute) Nail dystrophy (Acute) Onychomycosis (Acute) Elevated LFTs (Acute) Steatosis (Acute) Hematuria (Acute) per pt report , confirmed UA .. incidental finding? (to rash) Skin rash (Acute) Chest, arms, mid-back .. papular, excoriated (Symptomatic Tx trial) Pain, ankle (Acute) Pain, foot (Acute) Diverticula of colon (Acute) severe. confined to sigmoid colon Arthritis of knee, left (Acute 01/08/15) Cerebral palsy (Chronic 12/27/07) R sided w/ ankle deformity Medical History Adenomatous colon polyp (~03/10/22) Obesity Benign neoplasm of colon (06/12/08) History of depression History of pre-eclampsia Surgical History Postoperative state Status post hysteroscopy with dilation and curettage, 12/2021. Normal colonoscopy (~02/2021) History of colonoscopy (~03/14/21) Ligation of fallopian tube 1977 section Family History Mother Stroke Father Heart disease Other Osteoporosis Social History Smoking/Tobacco Use Status: Former Tobacco Use Quit Date: 06/21/78 Smoking risk assessment performed?: Yes Alcohol Intake: current Alcohol Intake frequency: holidays/special occasions only Drug use: Occasionally Substance use type: marijuana Housing: apartment Number of Children: 2 number of grandchildren: 3 Communication Needs: Corrective Lenses Education Level: high school current occupation: [employer] Current gender identity: female What is your relationship status?: How often do you talk on the phone with friends or family?: twice per week How often do you get together with friends or relatives?: twice per week Panel score (0-1 are the most socially isolated patients): 1 What type of physical activity do you participate in: walking Duration: 15-30 minutes/day Frequency: 5-6 times per week Seatbelt use: always Drive intox or ride w/intox caterpillar driver: No Working smoke detector in home: Yes Fire extinguisher in home: Yes Carbon monox detector in home: Yes Do you feel safe at home: Yes Do you feel safe in your relationship?: Yes Female Reproductive History Menstrual Age of Menarche: 14 Duration of menses: other (irregular ) Menopause type: natural History History 2 Para Hx # Term Pregnancies 2 Multiple births Hx # Pregnancies Ectopic pregnancies AB induced Hx Number of Living Children AB spontaneous Past Pregnancies Del. Date GA/Weeks # Preg Succ Route Wgt Sex Labor Lgth Anesth esia Location Prov Complic 05/23/76 37 2353.01 g Male [place], [place] 08/25/77 40 Yes 3175.147 g Male [place] Delivery Date: 05/23/76 Last Updated by: Breanna Solano pt reports had toxemia and high blood pressure Readmission Within the Past 30 Days Yes or No: No
[2024-12-07] MEDS: Acetaminophen 325 MG TAB PO ×3 (09:10→21:49)
[2024-12-07] MEDS: Aspirin E.C. 81 MG TABEC PO (09:10)
[2024-12-07] MEDS: Multivitamin TAB 1 TAB PO (09:11)
[2024-12-07] MEDS: Normal Saline Flush 10 ML SYR IVP ×3 (09:11→21:24)
--- NOTE | 2024-12-07 11:05 | SCONE_ITS ---
Date of service: 12/07/24 Time of Service: 11:06 Assessment and Plan Assessment and plan (1) Elevated LFTs: Status: Acute Assessment and plan: The texture of the patient's liver when evaluated on CT did appear to correspond, with possible steatosis. Unlikely to be a cause of her LFTs being elevated, as her laboratory values show some fluctuations in transaminases, which would be atypical for steatosis. Possibly passage of sludge, and some irritation of the bile duct, sphincter of Oddi dysfunction. Does not appear today to represent a functional obstruction. (2) Pancreatitis: Status: Acute Assessment and plan: Clinically she does have pancreatitis. This can be seen from the CT scan, showing peripancreatic inflammation. It appears that her lipase has already normalized, as it was 51 on admission here. She has been able to tolerate liquids. Will put her back on a liquid diet. I cautioned her that if her pain comes back, she needs to promptly stop any oral intake. (3) Gall bladder disease: Status: Chronic Assessment and plan: She does have some imaging findings on her gallbladder, which appear most consistent with sludge. Last year she was worked up for some similar type pain had a MRI of the liver, initially that showed concern for right gallbladder mass subsequent, and more thorough imaging showed this to be more consistent with gallbladder sludge. From personal review of her images, the MRI, as well as a CT scan, seems more consistent with sludge. From the perspective of the gallbladder, not clear that this has caused her pancreatitis, treat her nonoperatively and medically for now. Clear liquid diet, possibly advance tomorrow. Have instructed her to strictly avoid any alcohol intake. Also recommended to her to substantially reducefatty foods from her diet. With respect to her gallbladder, I think it best for this to be treated electively as an outpatient. In some cases removal of the gallbladder can be helpful for cases of recurrent pancreatitis, when they are not clearly stones seen within the gallbladder. (4) Steatosis: Status: Acute Assessment and plan: As noted above, the patient does have a history of this, losing weight, and decreasing fatty foods is the cornerstone of treatment of this. History of Present Illness History of Present Illness Chief Complaint: Abdominal pain Narrative: Ms. Alvarez is a 69-year-old female, she presents to the hospital having about 24 hours of worsening pain in the epigastric region and back. This was initially associated with some nausea but no vomiting. The pain began about 4 days ago on Wednesday, patient had an egg and potato omelette, at a Father's Day breakfast. This is not abnormal for her diet. She does not have a history of pain with ingestion of fatty or greasy foods. Occasionally, she will drink alcohol, but in this particular situation she was not. About a year ago she was worked up for some similar abdominal pain, but she does not recall most of the details associated with this. The workup was done through her primary care physician. Review of Systems Narrative: * General, negative. CV, there is a family history of cardiovascular disease, but none personally for patient. Respiratory negative. GI, as per HPI otherwise negative. , negative. Musculoskeletal, patient with slight lengthening of her right lower extremity. This was from . Neuro, negative. Endocrine, negative. Skin, negative. PFSH All Active Problems Gall bladder disease (Chronic) Pancreatitis (Acute) Chest pain (Acute) Arthralgia of left acromioclavicular joint (Acute) PAD (peripheral artery disease) (Acute) Nail dystrophy (Acute) Onychomycosis (Acute) Elevated LFTs (Acute) Steatosis (Acute) Hematuria (Acute) per pt report , confirmed UA .. incidental finding? (to rash) Skin rash (Acute) Chest, arms, mid-back .. papular, excoriated (Symptomatic Tx trial) Pain, ankle (Acute) Pain, foot (Acute) Diverticula of colon (Acute) severe. confined to sigmoid colon Arthritis of knee, left (Acute 01/08/15) Cerebral palsy (Chronic 12/27/07) R sided w/ ankle deformity Medical History Adenomatous colon polyp (~03/10/22) Obesity Benign neoplasm of colon (06/12/08) History of depression History of pre-eclampsia Surgical History Postoperative state Status post hysteroscopy with dilation and curettage, 12/2021. Normal colonoscopy (~02/2021) History of colonoscopy (~03/14/21) Ligation of fallopian tube 1977 section Family History Mother Stroke Father Heart disease Other Osteoporosis Social History Smoking/Tobacco Use Status: Former Tobacco Use Quit Date: 06/21/78 Smoking risk assessment performed?: Yes Alcohol Intake: current Alcohol Intake frequency: holidays/special occasions only Drug use: Occasionally Substance use type: marijuana Housing: apartment Number of Children: 2 number of grandchildren: 3 Communication Needs: Corrective Lenses Education Level: high school current occupation: [employer] Current gender identity: female What is your relationship status?: How often do you talk on the phone with friends or family?: twice per week How often do you get together with friends or relatives?: twice per week Panel score (0-1 are the most socially isolated patients): 1 What type of physical activity do you participate in: walking Duration: 15-30 minutes/day Frequency: 5-6 times per week Seatbelt use: always Drive intox or ride w/intox haul driver: No Working smoke detector in home: Yes Fire extinguisher in home: Yes Carbon monox detector in home: Yes Do you feel safe at home: Yes Do you feel safe in your relationship?: Yes Female Reproductive History Menstrual Age of Menarche: 14 Duration of menses: other (irregular ) Menopause type: natural History History 2 2 Para Hx # Term Pregnancies 2 Multiple births Hx # Pregnancies Ectopic pregnancies AB induced Hx Number of Living Children AB spontaneous Past Pregnancies Del. Date GA/Weeks # Preg Succ Route Wgt Sex Labor Lgth Anesth esia Location [facility] 05/23/76 37 2353.01 g Male [place], [place] [birth year]/77 40 Yes 3175.147 g Male [place] Delivery Date: 05/23/76 Last Updated by: Breanna Solano pt reports had toxemia and high blood pressure Exam Narrative Exam Narrative: Patient is a pleasant adult female, vital signs are normal. She was examined with her nurse present. Her cardiac exam is regular rate and rhythm without gross murmur. Her pulmonary exam is clear to auscultation bilaterally. Abdomen is obese, there are no grossly visible prior surgical scars. The abdomen is soft, nontender and nondistended. Results Last Vital Signs Temp 36.5 C 12/07/24 07:16 Pulse 67 12/07/24 07:16 Resp 16 12/07/24 07:16 BP 131/62 12/07/24 07:16 Pulse Ox 93 12/07/24 07:16 Labs 12/07/24 06:00 12/07/24 06:00 Labs: Laboratory Results - last 24 hr 12/06/24 12/06/24 12/06/24 17:40 18:20 19:45 WBC 21.26 H RBC 5.06 Hgb 14.4 Hct 42.7 MCV 84 MCH 28.5 MCHC 33.7 RDW 14.0 Plt Count 290 MPV 10.1 Immature Gran % 0.0 Neutrophils % 82.0 Lymphocytes % 5.0 Monocytes % 4.0 Eosinophils % 9.0 Basophils % 0.0 Nucleated RBC % 0.0 Absolute Neutrophils 17.43 H Absolute Lymphocytes 1.06 L Absolute Monocytes 0.85 H Absolute Eosinophils 1.91 H Absolute Basophils 0.00 RBC Morphology Normal ESR 43 H PT INR Sodium 136 Potassium 3.3 L Chloride 97 L Carbon Dioxide 28.4 Anion Gap 10.6 BUN 15 Creatinine 0.8 Est GFR (CKD-EPI 2020) 80.71 Glucose 87 Calcium 9.1 Magnesium 1.8 Total Bilirubin 1.5 H AST 25 ALT 185 H Alkaline Phosphatase 149 H Lactate Dehydrogenase 238 H Troponin I 5 Cancelled C-Reactive Protein 24.10 H NT-Pro-B Natriuret Pep 741 H Total Protein 7.5 Albumin 3.1 L Lipase 51 TSH Urine Color Yellow Urine Clarity Clear Urine pH 6.5 Ur Specific Cantrall 1.010 Urine Protein 30 H Urine Ketones 40 H Urine Blood Large H Urine Nitrite Negative Urine Bilirubin Negative Urine Urobilinogen 0.2 Ur Leukocyte Esterase Negative Urine RBC >50 H Urine WBC 0-2 Ur Epithelial Cells Rare Urine Crystals Negative Urine Bacteria Few Urine Casts Negative Urine Mucus Trace Ur Culture Indicated? No Urine Glucose Negative COVID-19 Source SARS-CoV-2 (PCR) Influenza Type A (PCR) Influenza Type B (PCR) RSV (PCR) 12/06/24 12/06/24 12/07/24 20:20 21:36 00:10 WBC RBC Hgb Hct MCV MCH MCHC RDW Plt Count MPV Immature Gran % Neutrophils % Lymphocytes % Monocytes % Eosinophils % Basophils % Nucleated RBC % Absolute Neutrophils Absolute Lymphocytes Absolute Monocytes Absolute Eosinophils Absolute Basophils RBC Morphology ESR PT INR Sodium Potassium Chloride Carbon Dioxide Anion Gap BUN Creatinine Est GFR (CKD-EPI 2020) Glucose Calcium Magnesium Total Bilirubin AST ALT Alkaline Phosphatase Lactate Dehydrogenase Troponin I Cancelled C-Reactive Protein NT-Pro-B Natriuret Pep Total Protein Albumin Lipase TSH Urine Color Cancelled Urine Clarity Cancelled Urine pH Cancelled Ur Specific [place] Cancelled Urine Protein Cancelled Urine Ketones Cancelled Urine Blood Cancelled Urine Nitrite Cancelled Urine Bilirubin Cancelled Urine Urobilinogen Cancelled Ur Leukocyte Esterase Cancelled Urine RBC Urine WBC Ur Epithelial Cells Urine Crystals Urine Bacteria Urine Casts Urine Mucus Ur Culture Indicated? Urine Glucose Cancelled COVID-19 Source Nasopharynx SARS-CoV-2 (PCR) Negative Influenza Type A (PCR) Negative Influenza Type B (PCR) Negative RSV (PCR) Negative 12/07/24 06:00 WBC 15.48 H RBC 4.35 Hgb 12.7 Hct 37.3 MCV 86 MCH 29.2 MCHC 34.0 RDW 14.3 Plt Count 266 MPV 10.1 Immature Gran % Neutrophils % Lymphocytes % Monocytes % Eosinophils % Basophils % Nucleated RBC % Absolute Neutrophils Absolute Lymphocytes Absolute Monocytes Absolute Eosinophils Absolute Basophils RBC Morphology ESR PT 10.9 INR 1.1 Sodium 136 Potassium 3.4 L Chloride 102 Carbon Dioxide 28.6 Anion Gap 5.4 BUN 13 Creatinine 0.7 Est GFR (CKD-EPI 2020) 94.73 Glucose 65 L Calcium 8.4 L Magnesium 1.9 Total Bilirubin 1.1 H AST 18 ALT 122 H Alkaline Phosphatase 122 H Lactate Dehydrogenase Troponin I C-Reactive Protein NT-Pro-B Natriuret Pep Total Protein 6.2 L Albumin 2.4 L Lipase TSH 1.10 Urine Color Urine Clarity Urine pH Ur Specific [place]rall Urine Protein Urine Ketones Urine Blood Urine Nitrite Urine Bilirubin Urine Urobilinogen Ur Leukocyte Esterase Urine RBC Urine WBC Ur Epithelial Cells Urine Crystals Urine Bacteria Urine Casts Urine Mucus Ur Culture Indicated? Urine Glucose COVID-19 Source SARS-CoV-2 (PCR) Influenza Type A (PCR) Influenza Type B (PCR) RSV (PCR) Imaging Abdomen CT scan report/results: report reviewed and image reviewed (Reviewed patient's CT image, the radiologist read as well as the physical images themselves. See assessment and plan below.)
--- NOTE | 2024-12-07 12:46 | PGE_ITS ---
Date of Service Date of service: 12/07/24 Time of Service: 12:46 Assessment and Plan Assessment and plan (1) Pancreatitis: Start date: 12/06/24 Status: Acute Assessment and plan: This is a 69-year-old lady who has had an acute onset of abdominal pain consistent with gallbladder pancreatitis though her lipase is normal but liver function tests are elevated and imaging does not reveal dilated ducts. There is persistent gallbladder sludge which has been there in the past. WBC is elevated but surgery did not recommend initiating antibiotics by the imaging not revealing acute infectious process. Patient will remain n.p.o. or clear fluids with surgical consultation and pain control for now. Follow-up imaging and surgical recommendations. Patient is a full code. 12/07/24 Discussed with pt criteria for dc. Improving labs/pe pain control with oral meds tolerating diet. First criteria already met (2) Gall bladder disease: Status: Chronic Assessment and plan: Patient appears to have some chronic gallbladder sludge and there is a question of stone formation and intermittent passage. Other chronic etiologies need to be investigated with surgical consultation to advise. 12/07/24 GS consult She does have some imaging findings on her gallbladder, which appear most consistent with sludge. Last year she was worked up for some similar type pain had a MRI of the liver, initially that showed concern for right gallbladder mass subsequent, and more thorough imaging showed this to be more consistent with gallbladder sludge. From personal review of her images, the MRI, as well as a CT scan, seems more consistent with sludge. From the perspective of the gallbladder, not clear that this has caused her pancreatitis, treat her nonoperatively and medically for now. Clear liquid diet, possibly advance tomorrow. Have instructed her to strictly avoid any alcohol intake. Also recommended to her to substantially reducefatty foods from her diet. With respect to her gallbladder, I think it best for this to be treated electively as an outpatient. In some cases removal of the gallbladder can be helpful for cases of recurrent pancreatitis, when they are not clearly stones seen within the gallbladder. (3) Cerebral palsy: Status: Chronic Assessment and plan: Patient does have right sided dysfunction in her upper and lower extremity which is chronic and causing advancing arthritis especially in the lower extremity but otherwise patient is very functional. dvtp-heparin, will change to lovenox 2/2 pt comfort and no pending surgery Subjective Subjective Interval history since last seen: PT seen and examined in her room. POC d/w pt and SO. Notes reviewed from GS. Exam Narrative Exam Narrative: NCAT MMM EOMI PERRLA NO LAD NO JVD RRR NO MRG CTAB NO AMU SNTNDBSA NO CCE BILAT Objective Last Vital Signs Temp 36.5 C 12/07/24 07:16 Pulse 67 12/07/24 07:16 Resp 16 12/07/24 07:16 BP 131/62 12/07/24 07:16 Pulse Ox 93 12/07/24 07:16 Laboratory Results - last 24 hr 12/06/24 12/06/24 12/06/24 17:40 18:20 19:45 WBC 21.26 H RBC 5.06 Hgb 14.4 Hct 42.7 MCV 84 MCH 28.5 MCHC 33.7 RDW 14.0 Plt Count 290 MPV 10.1 Immature Gran % 0.0 Neutrophils % 82.0 Lymphocytes % 5.0 Monocytes % 4.0 Eosinophils % 9.0 Basophils % 0.0 Nucleated RBC % 0.0 Absolute Neutrophils 17.43 H Absolute Lymphocytes 1.06 L Absolute Monocytes 0.85 H Absolute Eosinophils 1.91 H Absolute Basophils 0.00 RBC Morphology Normal ESR 43 H PT INR Sodium 136 Potassium 3.3 L Chloride 97 L Carbon Dioxide 28.4 Anion Gap 10.6 BUN 15 Creatinine 0.8 Est GFR (CKD-EPI 2020) 80.71 Glucose 87 Calcium 9.1 Magnesium 1.8 Total Bilirubin 1.5 H AST 25 ALT 185 H Alkaline Phosphatase 149 H Lactate Dehydrogenase 238 H Troponin I 5 Cancelled C-Reactive Protein 24.10 H NT-Pro-B Natriuret Pep 741 H Total Protein 7.5 Albumin 3.1 L Lipase 51 TSH Urine Color Yellow Urine Clarity Clear Urine pH 6.5 Ur Specific Ar[place]illa 1.010 Urine Protein 30 H Urine Ketones 40 H Urine Blood Large H Urine Nitrite Negative Urine Bilirubin Negative Urine Urobilinogen 0.2 Ur Leukocyte Esterase Negative Urine RBC >50 H Urine WBC 0-2 Ur Epithelial Cells Rare Urine Crystals Negative Urine Bacteria Few Urine Casts Negative Urine Mucus Trace Ur Culture Indicated? No Urine Glucose Negative COVID-19 Source SARS-CoV-2 (PCR) Influenza Type A (PCR) Influenza Type B (PCR) RSV (PCR) 06/18/25 06/18/25 06/19/25 20:20 21:36 00:10 WBC RBC Hgb Hct MCV MCH MCHC RDW Plt Count MPV Immature Gran % Neutrophils % Lymphocytes % Monocytes % Eosinophils % Basophils % Nucleated RBC % Absolute Neutrophils Absolute Lymphocytes Absolute Monocytes Absolute Eosinophils Absolute Basophils RBC Morphology ESR PT INR Sodium Potassium Chloride Carbon Dioxide Anion Gap BUN Creatinine Est GFR (CKD-EPI 2020) Glucose Calcium Magnesium Total Bilirubin AST ALT Alkaline Phosphatase Lactate Dehydrogenase Troponin I Cancelled C-Reactive Protein NT-Pro-B Natriuret Pep Total Protein Albumin Lipase TSH Urine Color Cancelled Urine Clarity Cancelled Urine pH Cancelled Ur Specific Ar[place] Cancelled Urine Protein Cancelled Urine Ketones Cancelled Urine Blood Cancelled Urine Nitrite Cancelled Urine Bilirubin Cancelled Urine Urobilinogen Cancelled Ur Leukocyte Esterase Cancelled Urine RBC Urine WBC Ur Epithelial Cells Urine Crystals Urine Bacteria Urine Casts Urine Mucus Ur Culture Indicated? Urine Glucose Cancelled COVID-19 Source Nasopharynx SARS-CoV-2 (PCR) Negative Influenza Type A (PCR) Negative Influenza Type B (PCR) Negative RSV (PCR) Negative 12/07/24 06:00 WBC 15.48 H RBC 4.35 Hgb 12.7 Hct 37.3 MCV 86 MCH 29.2 MCHC 34.0 RDW 14.3 Plt Count 266 MPV 10.1 Immature Gran % Neutrophils % Lymphocytes % Monocytes % Eosinophils % Basophils % Nucleated RBC % Absolute Neutrophils Absolute Lymphocytes Absolute Monocytes Absolute Eosinophils Absolute Basophils RBC Morphology ESR PT 10.9 INR 1.1 Sodium 136 Potassium 3.4 L Chloride 102 Carbon Dioxide 28.6 Anion Gap 5.4 BUN 13 Creatinine 0.7 Est GFR (CKD-EPI 2020) 94.73 Glucose 65 L Calcium 8.4 L Magnesium 1.9 Total Bilirubin 1.1 H AST 18 ALT 122 H Alkaline Phosphatase 122 H Lactate Dehydrogenase Troponin I C-Reactive Protein NT-Pro-B Natriuret Pep Total Protein 6.2 L Albumin 2.4 L Lipase TSH 1.10 Urine Color Urine Clarity Urine pH Ur Specific Ar[place] Urine Protein Urine Ketones Urine Blood Urine Nitrite Urine Bilirubin Urine Urobilinogen Ur Leukocyte Esterase Urine RBC Urine WBC Ur Epithelial Cells Urine Crystals Urine Bacteria Urine Casts Urine Mucus Ur Culture Indicated? Urine Glucose COVID-19 Source SARS-CoV-2 (PCR) Influenza Type A (PCR) Influenza Type B (PCR) RSV (PCR) PAWSS Have you Been Recently Intoxicated or Drunk Within the Last 30 days?: No Have you Ever Experienced Previous Episodes of Alcohol Withdrawal?: No Have you ever Experienced Withdrawal Seizures?: No Have you ever Experienced Delirium Tremens(DT)s?: No Have you ever undergone Alcohol Rehabilitation Treatment (i.e, inpt ot outpatient treatment programs)?: No Have you ever Experienced Blackouts?: No Have you ever Combined Alcohol with other Downers within the last 90 days?: No Have you ever Combined Alcohol with any other Substance of Abuse during the last 90 days?: No Positive Blood Alcohol level on Presentation? [PCS.BAL]: No Evidence of Increased Autonomic Activity (i.e. HR>120, tremor, sweating, agitation, nausea)?: No Result: 0 Time Spent with Patient Time Spent with Patient: 25-34 minutes Time was spent: preparing to see the patient(eg.review tests), obtaining and/or reviewing separately otained hiistory, ordering medications,tests, procedures, referring, communicating with other health pulmonary care nurse, indepentently interpreting results, counseling the patient, care coordination and other
[2024-12-07] MEDS: oxyCODONE 10 MG TAB PO ×2 (14:52→20:45)
[2024-12-07 15:23] VITALS: BP 117/58; PULSE 61; RESP 16; TEMP 36.8; O2SAT 94
[2024-12-07 20:56] VITALS: BP 131/57; PULSE 61; RESP 20; TEMP 37.2; O2SAT 93
[2024-12-08] MEDS: oxyCODONE 10 MG TAB PO ×3 (02:19→18:04)
[2024-12-08] MEDS: Acetaminophen 325 MG TAB PO ×3 (02:19→18:07)
[2024-12-08 04:15] VITALS: BP 110/52; PULSE 77; RESP 16; TEMP 36.5; O2SAT 95
[2024-12-08 06:34] LABS: Abs Immature Grans 0.06 10^3/uL (0.0-0.06); Absolute Eosinophil Count 0.03 10^3/uL (0.0-0.7); Absolute Lymphocyte Count 1.06 10^3/uL (1.2-3.4); Absolute Monocyte Count 1.03 10^3/uL (0.1-0.8); Absolute Neutrophil Count 10.37 10^3/uL (1.2-6.7); Basophils % 0.2 %; Eosinophils % 0.2 %; HCT 34.7 % (36.0-46.0); HGB 11.6 g/dL (11.2-15.7); Immature Grans % 0.5 %; Lymphocytes % 8.4 %; MCH 29.4 pg (27.0-33.0); MCHC 33.4 % (32.0-36.0); MCV 88 fL (80-95); Monocytes % 8.2 %; Neutrophils % 82.5 %; Platelet Count 265 10^3/uL (130-400); RBC 3.94 10^6/uL (3.93-5.22); RDW 14.6 % (11.7-14.6); RDW-SD 46.9 fL; WBC 12.57 10^3/uL (4.4-10.8)
[2024-12-08 06:36] LABS: Absolute Basophil Count 0.03 10^3/uL (0.0-0.2)
[2024-12-08 06:55] VITALS: BP 126/57; PULSE 60; RESP 16; TEMP 36.4; O2SAT 95
[2024-12-08 07:01] LABS: ALT 76 U/L (14-59); AST 14 U/L (15-37); Alkaline Phosphatase 122 U/L (46-116); Anion Gap 7.1 mmol/L (3-11); BUN 8 mg/dL (7-18); Bilirubin, Total 0.9 mg/dL (0.2-1.0); CO2 28.9 mmol/L (21.0-32.0); CREATININE 0.9 mg/dL (0.55-1.02); Calcium 8.4 mg/dL (8.5-10.1); Chloride 102 mmol/L (98-107); Estimated GFR 70.07 (mL/min/1.73m2); Glucose 86 mg/dL (74-106); Lipase 28 U/L (<78); Potassium 3.3 mmol/L (3.5-5.1); Sodium 138 mmol/L (136-145); Total Protein 5.8 g/dL (6.4-8.2)
[2024-12-08] MEDS: Docusate Sodium 100 MG CAP PO (09:55)
[2024-12-08] MEDS: Polyethylene Glycol 3350 17 GM PACKET PO (09:55)
--- NOTE | 2024-12-08 09:55 | PDOC.CMPRO ---
Date of service: 12/08/24 Time of Service: 10:48 Care Management Progress Note Progress Note Text Progress Note Text: Stephanie was lying in bed, when CM arrived. Per report, she hadn't been able to tolerate her diet, so she will stay today. Per Stephanie, she is feeling better today but is happy she is staying to ensure she will be able to eat before going home. CM will continue to follow. Discharge Potential Discharge Needs: Consult Consult Services Needed: Nutrition and PCP F/U Appt Anticipated Barriers to Discharge: Medical Status Patient/Family Education Needs: Review discharge instructions, discuss Ask Me Three Transportation: Private vehicle Plan: Anticipate, Stephanie will be discharged home, once medically ready. She will follow up with her community providers and continue per her discharge plan of care. Stephanie will likely transport via private vehicle. CM will continue to follow. Social Determinants of Health Screening Social Determinants of health last assessed in clinic: 12/08/24 Will the Patient Participate in the Screening?: Yes Do you worry about having a steady place to live?: no Problems where you live: no known problems In the past 12 months, have you had to go without electric, gas, oil or water in your home?: no 1. Within the past 12 months, we worried whether our food would run out before we got money to buy more.: Never true 2. Within the past 12 months, the food we bought just didn't last and we didn't have money to get more.: Never true Has lack of transportation kept you from medical appointments or from doing things needed for daily living?: no Has anyone in your life made you feel unsafe or unsupported?: no How hard is it for you to pay for the very basics like food, housing, medical care, and heating? Would you say it is:: Not hard at all Do you want help finding or keeping work or a job?: I do not need or want help If for any reason you need help with day-to-day activities such as bathing, preparing meals, shopping, managing finances, etc., do you get the help you need?: I don?t need any help How often do you feel lonely or isolated from those around you?: Never Do you speak a language other than [place] at home?: No Does the patient want assistance with any of the above?: No
[2024-12-08] MEDS: Enoxaparin 40 MG/0.4 ML SYR SC (09:56)
[2024-12-08] MEDS: Aspirin E.C. 81 MG TABEC PO (09:56)
[2024-12-08] MEDS: Normal Saline 1,000 ML 75 ML IV ×2 (09:58→23:43)
--- NOTE | 2024-12-08 10:46 | W.PM.PROGNOT ---
Date of Service Date of service: 12/08/24 Time of Service: 10:46 Assessment and Plan Assessment and plan (1) Pancreatitis: Start date: 12/06/24 Status: Acute Assessment and plan: This is a 69-year-old lady who has had an acute onset of abdominal pain consistent with gallbladder pancreatitis though her lipase is normal but liver function tests are elevated and imaging does not reveal dilated ducts. There is persistent gallbladder sludge which has been there in the past. WBC is elevated but surgery did not recommend initiating antibiotics by the imaging not revealing acute infectious process. Patient will remain n.p.o. or clear fluids with surgical consultation and pain control for now. Follow-up imaging and surgical recommendations. Patient is a full code. 12/07/24 Discussed with pt criteria for dc. Improving labs/pe pain control with oral meds tolerating diet. First criteria already met 12/08/24 Pt will stay another day. Advance diet as tolerated. Recheck lipase in am (2) Gall bladder disease: Status: Chronic Assessment and plan: Patient appears to have some chronic gallbladder sludge and there is a question of stone formation and intermittent passage. Other chronic etiologies need to be investigated with surgical consultation to advise. 12/07/24 GS consult She does have some imaging findings on her gallbladder, which appear most consistent with sludge. Last year she was worked up for some similar type pain had a MRI of the liver, initially that showed concern for right gallbladder mass subsequent, and more thorough imaging showed this to be more consistent with gallbladder sludge. From personal review of her images, the MRI, as well as a CT scan, seems more consistent with sludge. From the perspective of the gallbladder, not clear that this has caused her pancreatitis, treat her nonoperatively and medically for now. Clear liquid diet, possibly advance tomorrow. Have instructed her to strictly avoid any alcohol intake. Also recommended to her to substantially reducefatty foods from her diet. With respect to her gallbladder, I think it best for this to be treated electively as an outpatient. In some cases removal of the gallbladder can be helpful for cases of recurrent pancreatitis, when they are not clearly stones seen within the gallbladder. 12/08/24 await input from GS. Does not appear to be need surgery (3) Cerebral palsy: Status: Chronic Assessment and plan: Patient does have right sided dysfunction in her upper and lower extremity which is chronic and causing advancing arthritis especially in the lower extremity but otherwise patient is very functional. dvtp-heparin, will change to lovenox 2/2 pt comfort and no pending surgery Subjective Subjective Interval history since last seen: Pt seen and examined in her room. Pt is not tolerating her full diet. 7/10 abd pain. Pt is on po pain meds Exam Narrative Exam Narrative: NCAT MMM EOMI PERRLA NO LAD NO JVD RRR NO MRG CTAB NO AMU SNTNDBSA NO CCE BILAT Objective Last Vital Signs Temp 36.4 C L 12/08/24 06:55 Pulse 60 12/08/24 06:55 Resp 16 12/08/24 06:55 BP 126/57 L 12/08/24 06:55 Pulse Ox 95 12/08/24 06:55 Laboratory Results - last 24 hr 12/08/24 12/08/24 05:35 06:04 WBC Cancelled 12.57 H RBC Cancelled 3.94 Hgb Cancelled 11.6 Hct Cancelled 34.7 L MCV Cancelled 88 MCH Cancelled 29.4 MCHC Cancelled 33.4 RDW Cancelled 14.6 Plt Count Cancelled 265 MPV Cancelled 10.0 Immature Gran % 0.5 Neutrophils % 82.5 Lymphocytes % 8.4 Monocytes % 8.2 Eosinophils % 0.2 Basophils % 0.2 Nucleated RBC % 0.0 Absolute Neutrophils 10.37 H Absolute Lymphocytes 1.06 L Absolute Monocytes 1.03 H Absolute Eosinophils 0.03 Absolute Basophils 0.03 Sodium 138 Potassium 3.3 L Chloride 102 Carbon Dioxide 28.9 Anion Gap 7.1 BUN 8 Creatinine 0.9 Est GFR (CKD-EPI 2020) 70.07 Glucose 86 Calcium 8.4 L Magnesium 2.0 Total Bilirubin 0.9 AST 14 L ALT 76 H Alkaline Phosphatase 122 H Total Protein 5.8 L Albumin 2.0 L Lipase 28 PAWSS Have you Been Recently Intoxicated or Drunk Within the Last 30 days?: No Have you Ever Experienced Previous Episodes of Alcohol Withdrawal?: No Have you ever Experienced Withdrawal Seizures?: No Have you ever Experienced Delirium Tremens(DT)s?: No Have you ever undergone Alcohol Rehabilitation Treatment (i.e, inpt ot outpatient treatment programs)?: No Have you ever Experienced Blackouts?: No Have you ever Combined Alcohol with other Downers within the last 90 days?: No Have you ever Combined Alcohol with any other Substance of Abuse during the last 90 days?: No Positive Blood Alcohol level on Presentation? [PCS.BAL]: No Evidence of Increased Autonomic Activity (i.e. HR>120, tremor, sweating, agitation, nausea)?: No Result: 0 Time Spent with Patient Time Spent with Patient: 25-34 minutes Time was spent: preparing to see the patient(eg.review tests), obtaining and/or reviewing separately otained hiistory, ordering medications,tests, procedures, referring, communicating with other health post anesthesia care unit nurse, indepentently interpreting results, counseling the patient and care coordination
[2024-12-08] MEDS: Normal Saline Flush 10 ML SYR IVP ×3 (10:48→20:00)
[2024-12-08] MEDS: Multivitamin TAB 1 TAB PO (10:56)
[2024-12-08 11:07] VITALS: BP 125/60; PULSE 64; RESP 16; TEMP 36.6; O2SAT 95
--- NOTE | 2024-12-08 12:03 | PGE_ITS ---
Date of Service Date of service: 12/08/24 Time of Service: 12:03 Assessment and Plan Assessment and plan (1) Pancreatitis: Start date: 12/06/24 Status: Acute Assessment and plan: Still has some abdominal pain. Have advised her to drink liquids only today and progress her diet very slowly. She is planned to stay here today, which is just fine. Tomorrow if she is able to keep herself hydrated, can likely go home. Subjective Subjective Interval history since last seen: Ms. Alvarez did have some abdominal pain yesterday with her liquids, but this was not as severe as her initial pain on Wednesday, five days ago. She had no nausea no r vomiting. She wishes to start eating solid food today. Exam Narrative Exam Narrative: Adult female patient in minimal discomfort. Her abdomen is more distended than yesterday and with some tenderness in the epigastrium. Objective Last Vital Signs Temp 36.6 C 12/08/24 11:07 Pulse 64 12/08/24 11:07 Resp 16 12/08/24 11:07 BP 125/60 12/08/24 11:07 Pulse Ox 95 12/08/24 11:07 Laboratory Results - last 24 hr 12/08/24 12/08/24 05:35 06:04 WBC Cancelled 12.57 H RBC Cancelled 3.94 Hgb Cancelled 11.6 Hct Cancelled 34.7 L MCV Cancelled 88 MCH Cancelled 29.4 MCHC Cancelled 33.4 RDW Cancelled 14.6 Plt Count Cancelled 265 MPV Cancelled 10.0 Immature Gran % 0.5 Neutrophils % 82.5 Lymphocytes % 8.4 Monocytes % 8.2 Eosinophils % 0.2 Basophils % 0.2 Nucleated RBC % 0.0 Absolute Neutrophils 10.37 H Absolute Lymphocytes 1.06 L Absolute Monocytes 1.03 H Absolute Eosinophils 0.03 Absolute Basophils 0.03 Sodium 138 Potassium 3.3 L Chloride 102 Carbon Dioxide 28.9 Anion Gap 7.1 BUN 8 Creatinine 0.9 Est GFR (CKD-EPI 2020) 70.07 Glucose 86 Calcium 8.4 L Magnesium 2.0 Total Bilirubin 0.9 AST 14 L ALT 76 H Alkaline Phosphatase 122 H Total Protein 5.8 L Albumin 2.0 L Lipase 28 PAWSS Have you Been Recently Intoxicated or Drunk Within the Last 30 days?: No Have you Ever Experienced Previous Episodes of Alcohol Withdrawal?: No Have you ever Experienced Withdrawal Seizures?: No Have you ever Experienced Delirium Tremens(DT)s?: No Have you ever undergone Alcohol Rehabilitation Treatment (i.e, inpt ot outpatient treatment programs)?: No Have you ever Experienced Blackouts?: No Have you ever Combined Alcohol with other Downers within the last 90 days?: No Have you ever Combined Alcohol with any other Substance of Abuse during the last 90 days?: No Positive Blood Alcohol level on Presentation? [PCS.BAL]: No Evidence of Increased Autonomic Activity (i.e. HR>120, tremor, sweating, agitation, nausea)?: No Result: 0 Time Spent with Patient Time Spent with Patient: <25 minutes Time was spent: preparing to see the patient(eg.review tests)
[2024-12-08 15:46] VITALS: BP 116/63; PULSE 67; RESP 16; TEMP 36.1; O2SAT 96
[2024-12-08] MEDS: Mylanta Suspension 30 ML CUP PO (18:04)
[2024-12-08 19:51] VITALS: BP 120/56; PULSE 71; RESP 20; TEMP 36.7; O2SAT 95
[2024-12-09] MEDS: Acetaminophen 325 MG TAB PO ×2 (00:32→09:05)
[2024-12-09] MEDS: oxyCODONE 10 MG TAB PO ×2 (00:32→09:05)
[2024-12-09 03:54] VITALS: BP 123/63; PULSE 64; RESP 18; TEMP 37; O2SAT 95
[2024-12-09 06:45] LABS: Absolute Basophil Count 0.02 10^3/uL (0.0-0.2); Absolute Eosinophil Count 0.07 10^3/uL (0.0-0.7); Absolute Lymphocyte Count 1.27 10^3/uL (1.2-3.4); Absolute Monocyte Count 1.03 10^3/uL (0.1-0.8); Absolute Neutrophil Count 8.66 10^3/uL (1.2-6.7); Basophils % 0.2 %; Eosinophils % 0.6 %; HCT 35.3 % (36.0-46.0); HGB 11.6 g/dL (11.2-15.7); Immature Grans % 0.9 %; Lymphocytes % 11.4 %; MCH 29.1 pg (27.0-33.0); MCHC 32.9 % (32.0-36.0); MCV 89 fL (80-95); Monocytes % 9.2 %; Neutrophils % 77.7 %; Platelet Count 297 10^3/uL (130-400); RBC 3.98 10^6/uL (3.93-5.22); RDW 14.8 % (11.7-14.6); RDW-SD 48.2 fL; WBC 11.15 10^3/uL (4.4-10.8)
[2024-12-09 07:04] LABS: ALT 61 U/L (14-59); AST 12 U/L (15-37); Albumin 2.1 g/dL (3.4-5.0); Alkaline Phosphatase 135 U/L (46-116); Anion Gap 6.4 mmol/L (3-11); BUN 6 mg/dL (7-18); Bilirubin, Total 0.6 mg/dL (0.2-1.0); CO2 30.6 mmol/L (21.0-32.0); CREATININE 0.7 mg/dL (0.55-1.02); Calcium 8.7 mg/dL (8.5-10.1); Chloride 103 mmol/L (98-107); Estimated GFR 94.73 (mL/min/1.73m2); Glucose 94 mg/dL (74-106); Lipase 30 U/L (<78); Potassium 3.3 mmol/L (3.5-5.1); Sodium 140 mmol/L (136-145); Total Protein 6.2 g/dL (6.4-8.2)
[2024-12-09] MEDS: Multivitamin TAB 1 TAB PO (09:06)
[2024-12-09] MEDS: Enoxaparin 40 MG/0.4 ML SYR SC (09:06)
[2024-12-09] MEDS: Aspirin E.C. 81 MG TABEC PO (09:06)
[2024-12-09 09:10] VITALS: BP 133/65; PULSE 70; TEMP 37.5; O2SAT 98
--- NOTE | 2024-12-09 10:29 | PGE_ITS ---
Date of Service Date of service: 12/09/24 Time of Service: 10:29 Assessment and Plan Assessment and plan (1) Pancreatitis: Start date: 12/06/24 Status: Acute Assessment and plan: Minimal pain today. Tolerating liquids and staying hydrated. Her laboratory values show decrease in the leukocytosis, hepatic function panel is unremarka ble. There is mild elevation of the AST and ALT. Mild elevation of the alk phos. Bilirubin is normal. We can send her home. I have cautioned her about fatty foods. Recommended she follow high-protein low-fat diet, with baked chicken breast, fish (not breaded), yogurt, and low-fat breakfast foods. Subjective Subjective Interval history since last seen: Patient today having minimal abdominal pain, she is tolerating a bland soft diet with mostly liquids. Objective Last Vital Signs Temp 37.5 C 12/09/24 09:10 Pulse 70 12/09/24 09:10 Resp 18 12/09/24 03:54 BP 133/65 12/09/24 09:10 Pulse Ox 98 12/09/24 09:10 Laboratory Results - last 24 hr 12/09/24 12/09/24 06:10 06:10 WBC 11.15 H RBC 3.98 Hgb 11.6 Hct 35.3 L MCV 89 MCH 29.1 MCHC 32.9 RDW 14.8 H Plt Count 297 MPV 10.0 Immature Gran % 0.9 Neutrophils % 77.7 Lymphocytes % 11.4 Monocytes % 9.2 Eosinophils % 0.6 Basophils % 0.2 Nucleated RBC % 0.0 Absolute Neutrophils 8.66 H Absolute Lymphocytes 1.27 Absolute Monocytes 1.03 H Absolute Eosinophils 0.07 Absolute Basophils 0.02 Sodium 140 Potassium 3.3 L Chloride 103 Carbon Dioxide 30.6 Anion Gap 6.4 BUN 6 L Creatinine 0.7 Est GFR (CKD-EPI 2020) 94.73 Glucose 94 Calcium 8.7 Magnesium 2.0 Cancelled Total Bilirubin 0.6 AST 12 L ALT 61 H Alkaline Phosphatase 135 H Total Protein 6.2 L Albumin 2.1 L Lipase 30 Objective Narrative Objective Narrative: Minimal pain today in the epigastrium. PAWSS Have you Been Recently Intoxicated or Drunk Within the Last 30 days?: No Have you Ever Experienced Previous Episodes of Alcohol Withdrawal?: No Have you ever Experienced Withdrawal Seizures?: No Have you ever Experienced Delirium Tremens(DT)s?: No Have you ever undergone Alcohol Rehabilitation Treatment (i.e, inpt ot outpatient treatment programs)?: No Have you ever Experienced Blackouts?: No Have you ever Combined Alcohol with other Downers within the last 90 days?: No Have you ever Combined Alcohol with any other Substance of Abuse during the last 90 days?: No Positive Blood Alcohol level on Presentation? [PCS.BAL]: No Evidence of Increased Autonomic Activity (i.e. HR>120, tremor, sweating, agitation, nausea)?: No Result: 0 Time Spent with Patient Time Spent with Patient: <25 minutes Time was spent: preparing to see the patient(eg.review tests), indepentently interpreting results and counseling the patient
[2024-12-09] MEDS: Normal Saline Flush 10 ML SYR IVP ×2 (11:53→13:02)
--- NOTE | 2024-12-09 12:28 | DSE_ITS ---
Date of service: 12/09/24 Time of Service: 12:28 DS: Diagnosis Discharge Diagnosis (1) Pancreatitis: Status: Acute Discharge Plan Disposition Patient Disposition: Home Condition: Improving Discharge Details Reason For Visit: Acute Pancreatitis Admit Date/Time: 12/06/24 19:44 Admit Provider: Micah Frye Attending Provider: Micah Frye Primary Care Provider: Callie Lugo Hospital Course Hospital Course: 69-year-old female patient who has minimal past medical history except for cerebral palsy involving her right upper and lower extremity and osteoarthritis presented with epigastric pain to her back. Lipase was normal, but bili and AST were elevated along with CRP and WBC. CT was consistent with pancreatitis and GB sludge without ductal dilation. U/s 12/07 confirmed sludge but no stones or ductal dilatation. Surgery was consulted and Dr. Granados followed along. She slowly improved clinically and was able to progress her diet. WBC and LFTs improved without antibiotics. She was tolerating a fat-restricted diet prior to discharge. Her pain was treated with 10mg oxycodone and she was given #6 tablets at discharge with precautions. Her potassium was mildly low at 3.3. She was given 40mEq on the morning of discharge orally. Recommendations for Follow Up Recommended tests to be ordered by follow up provider: 1 week with labs: CBC, CMP (for potassium, ALT, alk phos) Home Meds and New Rx's Prescriptions: New polyethylene glycol 3350 17 gram Powder In Packet 17 g PO DAILY PRN PRN (Reason: Constipation) Qty: 0 0RF oxycodone 10 mg Tablet 10 mg PO Q4H PRN PRNQty: 6 0RF Continued meloxicam 7.5 mg tablet 7.5 mg PO DAILY PRN (Reason: joint pain) Qty: 90 3RF Metamucil 3.4 gram/5.4 gram powder 1 tbsp PO DAILY PRN Rx Instructions: mix into at least 8 oz of water or juice before administering zinc oxide 25 % paste 1 applic topical TID PRN Rx Instructions: Trial to chest area, arms for rash [as best dispensed or OTC if not covered] cholecalciferol (vitamin D3) 400 units PO DAILY calcium carbonate 600 mg PO DAILY ketoconazole 2 % cream 1 applic topical DAILY Qty: 120 6RF Rx Instructions: Apply to toenails once daily multivitamin [Daily Multi-Vitamin] 1 EACH tablet 1 ea PO DAILY aspirin [Heike Low Dose Aspirin] 81 MG tablet,delayed release (DR/EC) 81 mg PO DAILY Ocuvite with Lutein 1 EACH tablet 1 ea PO DAILY Fish Oil 300 MG capsule 300 mg PO DAILY GLUCOS-CHOND 500 COMPLEX CP 1 EACH capsule [address] martinez wart 1 tab PO DAILY Niya-C with Bioflavonoids 500-200 mg tablet 1 tab PO DAILY PRN Discharge Instructions Instructions: Acute pancreatitis Additional Instructions: Follow the low fat diet as discussed to take stress off the pancreas. You may consider removal of the gallbladder on follow up with a surgeon. Activity:: Activity as Tolerated Equipment/Supplies:: No Equipment Needed Diet:: low fat Discharge Orders Discharge Orders: Discharge Order (Routine); Ordered 12/09/24 Ordered By: Freedom Justin DS: Summary Time Spent with Patient providing and/or coordinating discharge services: Greater than 30 minutes Status at Discharge Functional status at discharge: independent ambulation Overall status at discharge: patient is progressing back to baseline Mental Status: mental status grossly normal Speech and Movement: speech and movement normal Mood: congruent mood Affect: normal affect Exam Narrative Exam Narrative: GEN: Alert and oriented, NAD, sitting up in chair HEENT: MMM, no icterus CV: RRR NO MRG Lungs; CTAB NO AMU Abd: +bs, soft, NT/ND NO: no cyanosis, trace lee edema at ankles Psych Mental Status: mental status grossly normal Speech and Movement: speech and movement normal Mood: congruent mood Affect: normal affect DS: Data Vitals/I&O Vitals and I&O: Vital Signs Temperature 37.5 C 12/09/24 09:10 Temperature Source Temporal Artery Scan 12/09/24 09:10 Pulse 70 12/09/24 09:10 Pulse Rhythm Regular 12/06/24 21:27 Pulse 62 12/06/24 17:50 Respiratory Rate 18 12/09/24 03:54 Respiratory Effort Normal, Non-Labored 12/06/24 21:27 Respiratory Depth Normal 12/06/24 21:27 Respiratory Pattern Normal 12/06/24 21:27 Blood Pressure 133/65 12/09/24 09:10 Blood Pressure Mean 87 12/09/24 09:10 Blood Pressure Position Sitting 12/06/24 17:09 Pulse Oximetry 98 12/09/24 09:10 Oxygen Delivery Method Room Air 12/09/24 09:10 Oxygen Flow Rate 0 12/09/24 09:10 Pain Level 4 12/09/24 10:05 Intake & Output 12/08/24 12/09/24 12/09/24 23:59 11:59 23:59 Intake Total 1860 / 3780 Output Total 650 / 1100 950 / 950 Balance 1210 / 2680 -950 / -950 Weight 82.7 kg Intake: IV 1010 / 2000 Oral 850 / 1780 Output: Urine 650 / 1100 950 / 950 Other: Urine Color Yellow Yellow Urine Appearance Clear Clear Urine Odor Strong Normal Data Completed and Pending Labs on day of discharge: Labs from last 24 hours 12/09/24 12/09/24 06:10 06:10 WBC 11.15 H RBC 3.98 Hgb 11.6 Hct 35.3 L MCV 89 MCH 29.1 MCHC 32.9 RDW 14.8 H Plt Count 297 MPV 10.0 Immature Gran % 0.9 Neutrophils % 77.7 Lymphocytes % 11.4 Monocytes % 9.2 Eosinophils % 0.6 Basophils % 0.2 Nucleated RBC % 0.0 Absolute Neutrophils 8.66 H Absolute Lymphocytes 1.27 Absolute Monocytes 1.03 H Absolute Eosinophils 0.07 Absolute Basophils 0.02 Sodium 140 Potassium 3.3 L Chloride 103 Carbon Dioxide 30.6 Anion Gap 6.4 BUN 6 L Creatinine 0.7 Est GFR (CKD-EPI 2020) 94.73 Glucose 94 Calcium 8.7 Magnesium Cancelled 2.0 Total Bilirubin 0.6 AST 12 L ALT 61 H Alkaline Phosphatase 135 H Total Protein 6.2 L Albumin 2.1 L Lipase 30 PFSH All Active Problems Gall bladder disease (Chronic) Pancreatitis (Acute) Chest pain (Acute) Arthralgia of left acromioclavicular joint (Acute) PAD (peripheral artery disease) (Acute) Nail dystrophy (Acute) Onychomycosis (Acute) Elevated LFTs (Acute) Steatosis (Acute) Hematuria (Acute) per pt report , confirmed UA .. incidental finding? (to rash) Skin rash (Acute) Chest, arms, mid-back .. papular, excoriated (Symptomatic Tx trial) Pain, ankle (Acute) Pain, foot (Acute) Diverticula of colon (Acute) severe. confined to sigmoid colon Arthritis of knee, left (Acute 01/08/15) Cerebral palsy (Chronic 12/27/07) R sided w/ ankle deformity Medical History Adenomatous colon polyp (~03/10/22) Obesity Benign neoplasm of colon (06/12/08) History of depression History of pre-eclampsia Surgical History Postoperative state Status post hysteroscopy with dilation and curettage, 12/2021. Normal colonoscopy (~02/2021) History of colonoscopy (~03/14/21) Ligation of fallopian tube 1977 section Family History Mother Stroke Father Heart disease Other Osteoporosis Social History Smoking/Tobacco Use Status: Former Tobacco Use Quit Date: 06/21/78 Smoking risk assessment performed?: Yes Alcohol Intake: current Alcohol Intake frequency: holidays/special occasions only Drug use: Occasionally Substance use type: marijuana Housing: apartment Number of Children: 2 number of grandchildren: 3 Communication Needs: Corrective Lenses Education Level: high school current occupation: [employer] Current gender identity: female What is your relationship status?: How often do you talk on the phone with friends or family?: twice per week How often do you get together with friends or relatives?: twice per week Panel score (0-1 are the most socially isolated patients): 1 What type of physical activity do you participate in: walking Duration: 15-30 minutes/day Frequency: 5-6 times per week Seatbelt use: always 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 Date GA/Weeks # Preg Succ Route Wgt Sex Labor Lgth Anesth esia Location [facility] 05/23/76 37 2353.01 g Male [place], [place] 08/25/77 40 Yes 3175.147 g Male [place] Delivery Date: 05/23/76 Last Updated by: Breanna Solano pt reports had toxemia and high blood pressure Time Spent with Patient Time Spent with Patient: <45 minutes Time was spent: preparing to see the patient(eg.review tests), obtaining and/or reviewing separately otained hiistory, ordering medications,tests, procedures, referring, communicating with other health overnight caregiver, indepentently interpreting results, counseling the patient and care coordination
[2024-12-09] MEDS: Potassium Chloride Liquid 20 MEQ PKT 40 MEQ PO (13:04)
--- NOTE | 2024-12-09 15:04 | PDOC.CMDIS ---
Date of service: 12/09/24 Time of Service: 15:04 LACE Index Scoring Tool Questions: Length of Stay (in days): 3 Was the patient admitted via the E.D.?: Yes Comorbidities: PVD and Liver or Renal Disease E.D. Visits: 1 Answers: Total Score: 12 Risk of Readmission: High Risk Care Management Discharge Plan Reason for Hospitalization: pancreatitis Discharge Plan: Stephanie will be discharged home with no new services. She will follow up with her community providers and continue per her discharge plan of care. Stephanie will transport via private vehicle. Patient/Family Education Needs: Review of discharge instructions, limitations, follow up plan and discuss Ask Me Three
--- NOTE | 2024-12-11 10:27 | W.NUTCONSULT ---
Date of service: 12/08/24 Time of Service: 10:00 Nutritional Consult ASSESSMENT: received consult request for one time opinion - pancreatitis INTERVENTION: Visited with patient 12/08 - still tolerating clears but not advancing diet at the time- was told to take it very slow. Reviewed and gave patient educational handout regarding fat restricted diet and increasing as tolerated. Suggested she maintain a fairly low fat diet in the future and referred to PCP to work with if/when needing PERT. Suggested increasing fiber as tolerated over the next month to goal of at least 25g per day and higher plant protein intake/lean animal choices. MONITORING AND EVALUATION: pt has my card with educational handout to contact for additional outpatient nutrition guidance/meal planning assistance Time Spent in Nutritional Counseling and Treatment: 10 min
== END 2024-12-09 15:14 | disposition home or self-care (01) | DRG 440 ==
LOC: ER 20:11 → MS 21:17
PROVIDERS: Hospitalist; Admitting Provider Family Medicine; Emergency Provider Emergency Medicine; PCP Nurse Practitioner; Responsible Provider Family Medicine; Visit Provider Family Medicine
DX: K85.80 Other acute pancreatitis without necrosis or infection (principal); G80.8 Other cerebral palsy; E87.6 Hypokalemia; E66.9 Obesity, unspecified; Z68.39 Body mass index [BMI] 39.0-39.9, adult; K76.0 Fatty (change of) liver, not elsewhere classified; K82.8 Other specified diseases of gallbladder; I73.9 Peripheral vascular disease, unspecified; B35.1 Tinea unguium; R31.9 Hematuria, unspecified; K57.30 Diverticulosis of large intestine without perforation or abscess without bleeding; M17.12 Unilateral primary osteoarthritis, left knee; F12.90 Cannabis use, unspecified, uncomplicated; R79.89 Other specified abnormal findings of blood chemistry
CPT/HCPCS: 00123; 36415; 80053; 83690; 85027; 85652; 87637; 93005; 96361; 96374; 96375; 99222; 99231; 99285; J1650; 71046; 74177; 76705; 81003; 81015; 83615; 83735; 83880; 84443; 84484; 85025; 85610; 86140; 93010; 99223; 99232; 99239; J1644; J1885; J2270; J2405; J3490

== ENCOUNTER 2024-12-18 14:07 | Outpatient (CLI) | payer MEDICARE, SELFPAY ==
[2024-12-18 14:02] LABS: Abs Immature Grans 0.05 10^3/uL (0.0-0.06); Absolute Basophil Count 0.03 10^3/uL (0.0-0.2); Absolute Eosinophil Count 0.06 10^3/uL (0.0-0.7); Absolute Monocyte Count 0.52 10^3/uL (0.1-0.8); Basophils % 0.5 %; Eosinophils % 0.9 %; HCT 41.9 % (36.0-46.0); HGB 13.3 g/dL (11.2-15.7); Immature Grans % 0.8 %; Lymphocytes % 28.5 %; MCH 28.4 pg (27.0-33.0); MCHC 31.7 % (32.0-36.0); MCV 89 fL (80-95); MPV 9.3 fL (8.0-11.0); Monocytes % 7.8 %; Neutrophils % 61.5 %; Platelet Count 382 10^3/uL (130-400); RBC 4.69 10^6/uL (3.93-5.22); RDW 13.9 % (11.7-14.6); RDW-SD 44.9 fL; WBC 6.66 10^3/uL (4.4-10.8)
[2024-12-18 14:26] LABS: ALT 26 U/L (14-59); AST 15 U/L (15-37); Albumin 3.2 g/dL (3.4-5.0); Alkaline Phosphatase 123 U/L (46-116); Anion Gap 4.2 mmol/L (3-11); BUN 14 mg/dL (7-18); Bilirubin, Total 0.4 mg/dL (0.2-1.0); CO2 34.8 mmol/L (21.0-32.0); CREATININE 0.9 mg/dL (0.55-1.02); Calcium 9.8 mg/dL (8.5-10.1); Chloride 103 mmol/L (98-107); Estimated GFR 70.07 (mL/min/1.73m2); Glucose 97 mg/dL (74-106); Potassium 4.9 mmol/L (3.5-5.1); Sodium 142 mmol/L (136-145); Total Protein 7.6 g/dL (6.4-8.2)
== END 2024-12-18 14:08 | disposition home or self-care (01) ==
LOC: LBO 14:07
PROVIDERS: PCP Nurse Practitioner; Visit Provider Emergency Medicine
DX: K85.80 Other acute pancreatitis without necrosis or infection (principal); K85.90 Acute pancreatitis without necrosis or infection, unspecified
CPT/HCPCS: 36415; 80053; 85025

== ENCOUNTER → 2024-12-27 13:49 | Outpatient (BNVA) | payer MEDICARE, SELFPAY | PROVIDERS: PCP Nurse Practitioner; Referring Provider Nurse Practitioner; Visit Provider Surgery | DX: K82.8 Other specified diseases of gallbladder (principal); K85.10 Biliary acute pancreatitis without necrosis or infection; G80.8 Other cerebral palsy | CPT/HCPCS: 99215 ==

== ENCOUNTER 2025-01-15 07:21 | Day surgery (SDC) | payer MEDICARE, SELFPAY ==
[2025-01-15] VITALS (37 sets, daily range): BP systolic 129–174; BP diastolic 52–82; PULSE 48–65; RESP 13–26; TEMP 36.2–36.5; O2SAT 89–100; BMI 38.2
--- NOTE | 2025-01-15 06:36 | W.ANESPRE ---
General Info Date of Service Date Performed: 01/15/25 Height: 4 ft 8 in Weight: 77.281 kg Body Mass Index (BMI): 38.2 Surgical Procedure: Operation Date: 01/15/25 09:10 Proposed Procedure Side Surgeon p Cholecystectomy Laparoscopic Alisha Leo MD Meds Allergies and Home Medications Allergies Allergy/AdvReac Type Severity Reaction Status Date / Time No Known Allergies Allergy Verified 01/15/25 07:51 Home Medication ?Medication ?Instructions ?Recorded Glucos-Chond 500 Complex Cp 1 ea PO DAILY 08/14/13 [facility] Wart 1 tab PO DAILY 08/14/13 aspirin 81 mg tablet,delayed 81 mg PO DAILY 08/14/13 release (Heike Low Dose Aspirin) multivitamin (Daily Multi-Vitamin 1 ea PO DAILY 08/14/13 tablet) omega-3 fatty acids 300 mg capsule 300 mg PO DAILY 08/14/13 (Fish Oil) vit A 300 mcg-C 200 mg-E 27 1 ea PO DAILY 08/14/13 mg-lutein 2 mg and minerals tablet (Ocuvite with Lutein) calcium carbonate 600 mg PO DAILY 10/17/20 cholecalciferol (vitamin D3) 400 units PO DAILY 10/17/20 psyllium husk 3.4 gram/5.4 gram 1 tbsp PO DAILY PRN 09/16/23 oral powder (Metamucil) zinc oxide 25 % topical paste 1 applic topical TID PRN 09/16/23 ketoconazole 2 % topical cream 1 applic topical DAILY #120 grams 12/20/23 meloxicam 7.5 mg tablet 7.5 mg PO DAILY PRN joint pain #90 05/23/24 tabs ascorbate calcium-bioflavonoid 500 1 tab PO DAILY PRN 10/12/24 mg-200 mg tablet (Niya-C with Bioflavonoids) polyethylene glycol 3350 17 gram 17 g PO DAILY PRN PRN Constipation 12/09/24 oral powder packet #0 ea hydrocodone 5 mg-acetaminophen 325 1 tab PO Q6H PRN pain #10 tabs 01/15/25 mg tablet Current Visit Medications: Current Medications Generic Name Dose Route Start Last Admin Trade Name Freq PRN Reason Stop Dose Admin Ringer's Solution 1,000 mls @ 80 mls/hr 01/15/25 06:00 IV 01/15/25 23:59 INFUSION RICARDO Cefazolin Sodium/Dextrose 2 gm in 50 mls @ 100 mls/hr 01/15/25 06:00 Ancef Duplex IVPB 01/15/25 23:59 PREOP RICARDO IV Miscellaneous Supplies 1 each 01/15/25 06:00 Iv Access IV 01/15/25 23:59 DIRECTED RICARDO Sodium Chloride 0 ml 01/15/25 06:00 Normal Saline Flush 10 Ml Syr IV 01/15/25 23:59 PRN PRN Sodium Chloride 0 ml 01/15/25 06:00 Normal Saline 10 Ml Vial IJ 01/15/25 23:59 DIRECTED PRN Sterile Water 0 ml 01/15/25 06:00 Water,Injection,Sterile 10 Ml Vial IJ 01/15/25 23:59 DIRECTED PRN PFSH Active Problems Active Problems: Problem Status Onset Code Gallbladder sludge Acute K82.8 Gall bladder disease Chronic K82.9 Pancreatitis Acute K85.90 Arthralgia of left acromioclavicular joint Acute M25.512 PAD (peripheral artery disease) Acute I73.9 Nail dystrophy Acute L60.3 Onychomycosis Acute B35.1 Elevated LFTs Acute R79.89 Steatosis Acute E88.89 Hematuria Acute R31.9 Skin rash Acute R21 Pain, ankle Acute M25.579 Pain, foot Acute M79.673 Diverticula of colon Acute K57.30 Arthritis of knee, left Acute 01/08/15 M17.12 Cerebral palsy Chronic 12/27/07 G80.9 Medical History Medical History Adenomatous colon polyp (~03/10/22) Obesity Benign neoplasm of colon (06/12/08) History of depression History of pre-eclampsia Surgical History Surgical History Postoperative state Status post hysteroscopy with dilation and curettage, 12/2021. Normal colonoscopy (~02/2021) History of colonoscopy (~03/14/21) Ligation of fallopian tube 1978 section Tobacco Smoking/Tobacco Use Status: Former Tobacco Use Alcohol Alcohol Intake: current Alcohol intake frequency: holidays/special occasions only Substance Use Substance use: Occasionally Substance use type: marijuana Prental History History 2 Para Hx # Term Pregnancies 2 Multiple births Hx # Pregnancies Ectopic pregnancies AB induced Hx Number of Living Children AB spontaneous Past Pregnancies Del. Date GA/Weeks # Preg Succ Route Wgt Sex Labor Lgth Anesthesia Location Prov Complic 05/23/76 37 2353.01 g Male [place], [place] 08/25/77 40 Yes 3175.147 g Male [place], [place] Delivery Date: 05/23/76 Last Updated by: Breanna Solano pt reports had toxemia and high blood pressure Vital Signs and Lab Results Vital Signs Most Recent Vital Signs in EMR: Temp Pulse Resp BP Pulse Ox 36.3 C L 65 16 174/73 H 97 01/15/25 07:45 01/15/25 07:45 01/15/25 07:45 01/15/25 07:45 01/15/25 07:45 Lab Results Complete Blood Count: WBC, (4.4-10.8) 6.66 10^3/uL 12/18/24, 13:58 RBC, (3.93-5.22) 4.69 10^6/uL 12/18/24, 13:58 Hgb, (11.2-15.7) 13.3 g/dL 12/18/24, 13:58 Hct, (36.0-46.0) 41.9 % 12/18/24, 13:58 Plt Count, (130-400) 382 10^3/uL 12/18/24, 13:58 Complete Metabolic Panel: Sodium, (136-145) 142 mmol/L 12/18/24, 13:58 Potassium, (3.5-5.1) 4.9 mmol/L 12/18/24, 13:58 Chloride, (98-107) 103 mmol/L 12/18/24, 13:58 Carbon Dioxide, (21.0-32.0) 34.8 mmol/L H 12/18/24, 13:58 BUN, (7-18) 14 mg/dL 12/18/24, 13:58 Creatinine, (0.55-1.02) 0.9 mg/dL 12/18/24, 13:58 Est GFR (CKD-EPI 2020), (mL/min/1.73m2) 70.07 12/18/24, 13:58 Calcium, (8.5-10.1) 9.8 mg/dL 12/18/24, 13:58 Albumin, (3.4-5.0) 3.2 g/dL L 12/18/24, 13:58 Glucose, (74-106) 97 mg/dL 12/18/24, 13:58 Liver Function Panel: ALT, (14-59) 26 U/L 12/18/24, 13:58 AST, (15-37) 15 U/L 12/18/24, 13:58 Imaging and Studies Imaging and Studies Study information below may be from another EMR and interpreted by another provider. Please see original notes in EMR for more complete details. EKG Summary: november 2024 Conclusion Sinus rhythm. 69 left axis no stemi Stress Test Summary: aug 2023 MPI Conclusion Myocardial perfusion is normal. There is no ischemia or evidence of prior infarction EF is 69% with normal wall motion Anesthesia Assessment and Plan Anesthesia History Personal History: No History of Anesthesia Complications Family History: No Family History of Anesthesia Complications Exercise Tolerance Exercise Tolerance: Metabolic Equivalents>4 Pertinent Negatives Pertinent Negatives: No Symptoms of GERD, No Major Pulmonary Symptoms or Complaints and No History of CVA/TIA Cardiac & Pulmonary Exam Cardiac Exam: Normal S1/S2 Heart Sounds Pulmonary Exam: Clear Bilateral Breath Sounds Implantable Cardiac Device Does patient have a Pacemaker or an ICD?: No Airway Exam Known Difficult Airway: No Mallampati Class: 2 Mouth Opening: Normal (> 3cm) Thyromental Distance: Greater than 3 cm Neck Range of Motion: Full ROM Neck Circumference: Thick Teeth Condition: Normal Dentition (one missing tooth (baby tooth that was never replaced) ) ASA Classification ASA Score: ASA 2 Emergency Case?: No NPO Status NPO Status: NPO Clears >2 hours, Solids >8 hours Anesthesia Plan Resuscitation Status: Full Code Anesthesia Technique: General Anesthesia Airway Planned: Endotracheal Tube Monitors Used: Standard Monitors Preoperative Comments:: 69 yo female for lap consuelo. Sig PMHx: PAD, steatosis, cerebral palsy, depression. former smoker, occ EtOH/cannabis. ECG: sinus. Stress: ECG nondiagnostic. Perfusion normal. EF 69%. Previous Anes: - Hysteroscopy, prop, fent, natural airway, no issues. - colo, prop, natural airway, no issues.
[2025-01-15] MEDS: Lactated Ringers 1,000 ML 80 ML IV ×2 (08:01→10:06)
--- NOTE | 2025-01-15 09:44 | PDOC.DSDIS_ITS ---
Date of service: 01/15/25 Discharge Plan Disposition Patient Disposition: Home Condition: Stable Discharge Details Attending Provider: Alisha Leo Primary Care Provider: Callie Lugo Home Meds and New Rx's Prescriptions: New hydrocodone-acetaminophen 5-325 mg tablet 1 tab PO Q6H PRN (Reason: pain) Qty: 10 0RF Continued meloxicam 7.5 mg tablet 7.5 mg PO DAILY PRN (Reason: joint pain) Qty: 90 3RF Metamucil 3.4 gram/5.4 gram powder 1 tbsp PO DAILY PRN Rx Instructions: mix into at least 8 oz of water or juice before administering zinc oxide 25 % paste 1 applic topical TID PRN Rx Instructions: Trial to chest area, arms for rash [as best dispensed or OTC if not covered] cholecalciferol (vitamin D3) 400 units PO DAILY calcium carbonate 600 mg PO DAILY ketoconazole 2 % cream 1 applic topical DAILY Qty: 120 6RF Rx Instructions: Apply to toenails once daily multivitamin [Daily Multi-Vitamin] 1 EACH tablet 1 ea PO DAILY aspirin [Heike Low Dose Aspirin] 81 MG tablet,delayed release (DR/EC) 81 mg PO DAILY Ocuvite with Lutein 1 EACH tablet 1 ea PO DAILY Fish Oil 300 MG capsule 300 mg PO DAILY GLUCOS-CHOND 500 COMPLEX CP 1 EACH capsule [address] DA[address] martinez wart 1 tab PO DAILY Niya-C with Bioflavonoids 500-200 mg tablet 1 tab PO DAILY PRN polyethylene glycol 3350 17 gram Powder In Packet 17 g PO DAILY PRN PRN (Reason: Constipation) Qty: 0 0RF Discharge Instructions Additional Instructions: Additional Instructions: Shower in 48 hours. Wash gently over steri-strips with soapy hands, rinse, pat dry. Don't peel strips or submerge them under water. The longer they stay on, the nicer the scars will heal. Ok to walk, climb stairs, and resume normal activities of daily living. Do not lift/push/pull more than 20lb for 4 weeks. Diet as tolerated, allow your body to naturally make adjustments in the bile flow after surgery. Eat your normal diet. Loose stools may occur. We will discuss them at follow up if still present in 2 weeks. Call or return for fever or incisional problems. Activity:: as above Shower/Bathe:: 48 hours Diet:: As Tolerated Stand Alone Forms: Anesthesia Discharge Inst., Murali Limon (DSU) Referrals: Alisha Leo MD [ [facility] STAFF PHYSICIAN, Surgery] Discharge Orders Discharge Orders: Discharge Order (Routine); Ordered 01/15/25 Ordered By: Alisha Leo DS: Diagnosis Discharge Diagnosis (1) Gallbladder sludge: Status: Acute
[2025-01-15] MEDS: ceFAZolin 2 GM/50 ML BAG IVPB (10:12)
[2025-01-15] MEDS: Bupivacaine 0.5% Pres-Free W/EPI 30 ML VIAL (10:36)
--- NOTE | 2025-01-15 11:43 | W.PM.OP ---
Operative Note Operative Note Refer to Anesthesia Record Procedure Description: Preoperative diagnosis: Gallbladder sludge Postoperative diagnosis: Gallbladder sludge. 2. Incarcerated umbilical hernia Procedure: 1. Laparoscopic cholecystectomy. 2. Primary repair of incarcerated umbilical hernia. Surgeon: Alisha Leo MD Medical Care Evaluation Specialist: ADELIA Burrell Anesthesia: GETA + local EBL 30mL Specimen: Gallbladder Complications: None Findings: uncomplicated cholecystectomy. Primary repair of incarcerated umbilical hernia. Procedure Description: This is a 69-year-old female who presented to the office after a hospitalization for biliary pancreatitis. Ultrasound of the gallbladder showed a sludge ball. Cholecystectomy was indicated. We discussed the procedure risks, benefits, alternatives, and expectations. All of the patient's questions were answered to their satisfaction. Informed consent was obtained and the patient was transferred to the operating room. She was placed supine on the operating table. SCDs were placed and all pressure points were padded appropriately. General anesthesia was induced. The abdomen was clipped prepped and draped in the usual sterile fashion. Timeout was performed. Local anesthetic was infiltrated above the umbilicus. An incision was made in the skin and the incision carried down to the umbilical stalk using cautery. There was an incarcerated umbilical hernia present. The stalk was opened and the contents of the hernia reduced using cautery and forceps. The hernia contained preperitoneal fat only, no intestine. The preperitoneal fat was reduced. A Marie clamp was used to enter the peritoneum. A finger was used to ensure no structures were adhered to the anterior abdominal wall. A Whiting trocar was introduced and the abdomen was insufflated to 15 mmHg. Initial laparoscopy confirmed no injury to the intra-abdominal structures. 3 additional 5 mm ports were placed in the upper abdomen under direct visualization. Local anesthetic was infiltrated at each port site. The patient's head was elevated and she was rotated toward the left. The gallbladder was elevated. The gallbladder dome was grasped and retracted cephalad. The infundibulum was grasped and retracted laterally and a dissection in Calot's triangle was pursued with a [place] dissector and a suction tool. 2 tubular structures were dissected free and skeletonized. A critical view was obtained and the gallbladder cystic duct and cystic artery were identified and confirmed. The cystic duct and cystic artery were clipped and transected with EndoShears. The gallbladder was then removed from the liver bed with cautery. A posterior branch vein was clipped. The gallbladder was placed into an Endo Catch bag and removed from the abdomen through the umbilicus. The liver bed was examined and hemostasis assured. The patient taken out of reverse Trendelenburg position. The 5 mm ports were removed and the abdomen was desufflated. The umbilical trocar was removed. The umbilical fascia of the hernia defect was cleared circumferentially. The hernia sac was removed and discarded. Interrupted 0-Ethibond suture was used to close the defect using two figure of eight stitches. The remainder of the local anesthetic was infiltrated into the umbilical fascia. The incisions were all closed with interrupted 4-0 Monocryl sutures in subcuticular fashion. The incisions were all washed and dried and Steri-Strips applied. The patient tolerated the procedure well. She extubated in the operating room and transferred to the recovery room in stable condition. There were no complications Date of Procedure: 01/15/25
--- NOTE | 2025-01-15 11:49 | GB_PTH ---
PATIENT: Marilyn Alvarez LOC: [facility] U#:[id number] AGE/SX: 69/F ROOM: RE01/15/[address]: Alisha Leo MD : [id number] BED: DIS: 01/15/2025 SPEC #: [id number] RECD: 01/15/25 13:09 STATUS: HEAVENLY REMaynor #: [id number] EBONIE: 01/15/25 11:[address]: Alisha Leo DEPT: Surgical Specimen RECD BY: Trista Hinton ENTERED: 01/15/25 13:10 SP TYPE: GB OTHR DR: Callie Lugo APRN Tissues: 1 - GALLBLADDER Procedures: GROSS AND MICRO LEVEL 3 Comments: [id number]
[2025-01-15] MEDS: fentaNYL 100 MCG/2 ML VIAL IVP ×2 (12:24→12:39)
--- NOTE | 2025-01-15 12:36 | W.ANESPOSTOP ---
Postoperative Evaluation Date, Time and Location Date Performed: 01/15/25 Time Performed: 12:36 Patient Location: PACU Vital Signs Most Recent Imported Vital Signs: Most Recent Vital Signs Temp Pulse Resp BP Pulse Ox 36.5 C 55 L 16 138/67 95 01/15/25 12:22 01/15/25 12:31 01/15/25 12:31 01/15/25 12:31 01/15/25 12:31 Pain Score Most Recent Pain Score: Most Recent Pain Score Pain Level 6 01/15/25 12:22 Assessment Mental Status: Arousable with meaningful communication Airway and Respiratory Function: Patent airway with normal (patient baseline) respiratory exam Cardiovascular Function: Hemodynamically Stable Hydration Status: Adequately Hydrated Nausea & Vomiting: No Nausea or Vomiting Pain: Pain is tolerable per patient Peripheral Nerve Block: Patient did not receive a nerve block
[2025-01-15] MEDS: oxyCODONE 5 MG TAB PO (13:38)
== END 2025-01-15 14:24 | disposition home or self-care (01) ==
PROVIDERS: PCP Nurse Practitioner; Visit Provider Surgery
PROC: 0FT44ZZ Resection of Gallbladder, Percutaneous Endoscopic Approach (ICD-10-PCS; CPT 47562; principal; 2025-01-15 09:00)
DX: K80.12 Calculus of gallbladder with acute and chronic cholecystitis without obstruction (principal); K42.9 Umbilical hernia without obstruction or gangrene
CPT/HCPCS: 49592; 47562; 88304; J0131; J0690; J1100; J1885; J2003; J2371; J2405; J2704; J3010; J3475

== ENCOUNTER → 2025-01-31 14:38 | Outpatient (BNVA) | payer MEDICARE, SELFPAY | PROVIDERS: PCP Nurse Practitioner; Referring Provider Nurse Practitioner; Visit Provider Surgery | DX: Z90.49 Acquired absence of other specified parts of digestive tract (principal); Z48.815 Encounter for surgical aftercare following surgery on the digestive system | CPT/HCPCS: 99024 ==

== ENCOUNTER → 2025-02-12 14:52 | Outpatient (BNVA) | payer MEDICARE, SELFPAY | PROVIDERS: PCP Nurse Practitioner; Referring Provider Nurse Practitioner; Visit Provider Podiatrist | DX: L60.3 Nail dystrophy (principal); B35.1 Tinea unguium; G80.8 Other cerebral palsy; M79.674 Pain in right toe(s); M79.675 Pain in left toe(s); A52.17 General paresis; R09.89 Other specified symptoms and signs involving the circulatory and respiratory systems; I83.93 Asymptomatic varicose veins of bilateral lower extremities; L65.9 Nonscarring hair loss, unspecified; L60.2 Onychogryphosis; L60.8 Other nail disorders | CPT/HCPCS: 11721 ==

== ENCOUNTER → 2025-04-04 14:02 | Outpatient (BNVA) | payer MEDICARE, SELFPAY | PROVIDERS: PCP Nurse Practitioner; Referring Provider Nurse Practitioner; Visit Provider Student in an Organized Health Care Education/Training Program | DX: M25.512 Pain in left shoulder (principal) | CPT/HCPCS: 99213 ==